=== PATIENT | female | born 1950 | race Caucasian/White ===

== ENCOUNTER 2018-05-27 14:49 | Inpatient (IN) | payer BC, MEDICARE ==
[2018-05-27] VITALS (7 sets, daily range): BP systolic 146–179; BP diastolic 77–87
[~2018-05-27] VITALS: Ht 157.5 cm; Wt 74.0 kg
[~2018-05-27 14:49] MED LIST: ALPR.25T PO; DILT180T7 PO; GABA-488 PO; Oxycodone Hcl/Acetaminophen PO; PRAM0.5T4 PO; TAPE100T PO; TEMA30CA PO; TIZA6CAP7 PO
[2018-05-27] MEDS ORDERED: ACETAMINOPHEN 500 MG TAB (TYLENOL) PO PRN (16:15)
[2018-05-27] MEDS ORDERED: diphenhydrAMINE 25 MG TAB (BENADRYL) PO PRN (16:15)
[2018-05-27] MEDS ORDERED: SCOPOLAMINE 1.5 MG (TRANSDERM-SCOP) PATCH TD PRN (16:15)
[2018-05-27] MEDS ORDERED: TEMAZEPAM 15 MG (RESTORIL) CAP PO PRN (16:15)
[2018-05-27] MEDS ORDERED: ALPRAZolam 0.25 MG (XANAX) TAB PO PRN (16:15)
[2018-05-27] MEDS ORDERED: PATIENT MAY USE OWN MEDS, ALL PO SCH (16:15)
--- OUTSIDE RECORDS SUMMARY | 2018-05-27 17:45 | XMS REPORT | Clinical Summary ---
Author Author Admin, QIE Organization [facility] Address Unknown Phone Unavailable Allergies, Adverse Reactions, Alerts Allergy Name Reaction Description Start Date Severity Status Provider ADHESIVE TAPE rash Moderate Active Maribel Elder REGLAN nausea, vomting Critical Active Maribel Elder OXYCODONE HCL nausea vomting Moderate Active Maribel Elder OPIUM nausea vomting Moderate Active Maribel Elder MORPHINE hallucinaton, nausea, vomting Critical Active Maribel Elder LATEX rash Moderate Active Maribel Elder CODEINE nausea/vomting Moderate Active Maribel Elder Conditions or Problems Problem Name Problem Code Onset Date Status Entry Date Provider Comment Standard Description Annotate 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 Active Deloris Mazariegos MD Other specified disorders of kidney and ureter Medication List Medication Instructions Start Date Stop Date Generic Name NDC Status Provider Patient Instruction CETIRIZINE HCL 10 MG ORAL TABS 1 po qd PRN Allergies CETIRIZINE HCL 07674005010 Active Maribel Elder Active MULTIVITAMIN GUMMIES ADULT CHEW 1 chew by mouth daily MULTIPLE VITAMINS-MINERALS 50676297064 Active Maribel Elder Active VITAMIN D3 56739 UNIT CAPS 1 tab by mouth daily CHOLECALCIFEROL 34929190496 Active Maribel Elder Active [facility] SENNA 8.6 MG ORAL TABS 1 tab by mouth twice daily SENNOSIDES 88325039863 Active Maribel Elder Active CLOTRIMAZOLE-BETAMETHASONE 1-0.05 % EXT CREA apply to affected area twice daily CLOTRIMAZOLE-BETAMETHASONE 56685111095 Active Maribel Elder Active PRAMIPEXOLE DIHYDROCHLORIDE 1 MG ORAL TABS 1 tab by mouth daily PRAMIPEXOLE DIHYDROCHLORIDE 12286750566 Active Maribel Elder Active GABAPENTIN 300 MG CAPS 1 po q hs for nerve pain GABAPENTIN 62460476882 Active Maribel Elder Active DILTIAZEM CD 180 MG ORAL [id number] 1 cap by mouth daily DILTIAZEM HCL COATED BEADS 75333324587 Active Maribel Elder Active ALPRAZOLAM 0.25 MG TAB 1 tablet by mouth twice a day as needed for stress ALPRAZOLAM 35202024152 Active Maribel Elder Active TRAMADOL HCL 50 MG TABS 2 tabs by mouth every 6 hours prn TRAMADOL HCL 67292075584 Active Maribel Elder Active TIZANIDINE HCL 6 MG ORAL CAPS 2 caps by mouth daily TIZANIDINE HCL 78355593533 Active Maribel Elder Active RESTORIL 30 MG CAP 1 cap by mouth at bedtime TEMAZEPAM 11370434157 Active Maribel Elder Active NUCYNTA ER 100 MG ORAL [id number] 1 tab by mouth three times a day prn pain TAPENTADOL HCL 63203696420 Active Maribel Elder Active CELEBREX 200 MG ORAL CAPS 1 cap by mouth CELECOXIB 89058031503 Active Maribel Elder Active Advance Directives Directive Description Start Date PERMISSION TO SHARE Encounters Code Encounter Date Provider Facility [id number] Level 3 New Patient 16:03:13 ILEANA Mazariegos MD [facility]
--- OUTSIDE RECORDS SUMMARY | 2018-05-27 17:45 | XMS REPORT | Encounter Summary ---
Author Author [facility] Organization [facility] Address Unknown Phone Unavailable Care Team Providers Care Qa Consultant Name Role Phone Manoj Yeager MD PCP Reason for Visit * Reason Comments Other Encounter Details Date Type Department Care Team Description 02/25/2018 Telephone Center for Jacob Baker MD Other Transplantation-Hepatobil [address] iary Pancreas [place] [address] [facility] 1st [place] [address] [address] [facility] [phone] [place] [address] [phone] Social History Tobacco Use Types Packs/Day Years Used Date Never Smoker Alcohol Use Drinks/Week oz/Week Comments No 0 Standard 0.0 drinks or equivalent Sex Assigned at Date Recorded Not on file as of this encounter Functional Status Functional Status Response Date of Assessment Does the patient have a hearing impairment: No 09/05/2016 Does the patient have a visual impairment: Yes 09/05/2016 Does the patient have impaired ambulation: No 09/05/2016 Does the patient have an activity of daily living No 09/05/2016 (ADL) impairment: Does the patient have an instrumental activity of No 09/05/2016 daily living (IADL) impairment: Cognitive Status Response Date of Assessment Does the patient have a cognitive impairment: No 09/05/2016 as of this encounter Miscellaneous Notes * Telephone Encounter - Shannan Mcfadden - 02/26/2018 9:34 AM CDT Orders refaxed [phone] * Telephone Encounter - Kathy Kwon - 02/26/2018 8:54 AM CDT [facility] called and requested that orders for pt's MRI be re-faxed. * Telephone Encounter - Shannan Mcfadden - 02/25/2018 1:41 PM CDT Per cardiovascular surgical tech at [facility] (system has not been updated since 2007) not comfortable completing this image for detailed report. Explained to patient v/u will call to reschedule the 02/27 at [facility]. Conflict on her schedule. * Telephone Encounter - Shannan Mcfadden - 02/25/2018 10:31 AM CDT Per [place] rescheduled MRI at [facility] [phone]/fax: on 02/27 check in 3:30 pm (due to lab request) at Hospital entrance east side information desk on 1st floor. If date/time will not work can call to change. Spoke with patient to confirm this new appoinent (different location) states has MRI/labs scheduled tomorrow at [facility]. Will f/u with [place] to see why location change? in this encounter Plan of Treatment Not on fileas of this encounter Visit Diagnoses Not on filein this encounter
--- OUTSIDE RECORDS SUMMARY | 2018-05-27 17:45 | XMS REPORT | Clinical Summary ---
Author Author [facility] Organization [facility] Address Unknown Phone Unavailable Care Team Providers Care Patient Escort Name Role Phone Manoj Yeager MD PCP Source Comments Some departments are not documenting in the electronic medical record. If you do not see the information that you expected, contact Release of Information in the Health Information Management department at [phone] for further assistance in locating additional records.[facility] Allergies Active Allergy Reactions Severity Noted Date Comments Adhesive Tape (Rosins) RASH Medium 09/05/2016 Latex RASH Medium 09/05/2016 Opium VOMITING, HALLUCINATIONS High 09/05/2016 Current Medications Prescription Sig. Disp. Refills Start End Date Status Date diltiazem CD (CARDIZEM Take 180 mg by mouth Active CD) 180 mg capsule daily. pramipexole (MIRAPEX) 1 Take 1 mg by mouth at Active mg tablet bedtime daily. tiZANidine (ZANAFLEX) 6 Take 12 mg by mouth at Active mg capsule bedtime daily. gabapentin (NEURONTIN) Take 300 mg by mouth Active 300 mg capsule twice daily. traMADol (ULTRAM) 50 mg Take 50 mg by mouth every Active tablet 6 hours as needed for Pain. temazepam (RESTORIL) 30 Take 30 mg by mouth at Active mg capsule bedtime as needed. tapentadol(+) (NUCYNTA) Take 100 mg by mouth Active 100 mg tablet every 4 hours as needed ALPRAZolam (XANAX) 0.25 Take 0.25 mg by mouth at Active mg tablet bedtime as needed for Anxiety. cetirizine (ZYRTEC) 10 mg Take 10 mg by mouth every Active tablet morning. senna/docusate Take 1 Tab by mouth Active (SENOKOT-S) 8.6/50 mg daily. tablet cholecalciferol (VITAMIN Take 400 Units by mouth Active D-3) 400 unit tab daily. other medication Take 1 Dose by mouth Active once. Medication Name & Strength: women's 50+ Dose(how many): once a day Frequency(how often):once a day Active Problems Not on file Encounters Date Type Specialty Care Team Description 02/27/2018 Orders Only Transplant Surgery Deyvi Russell RN Healthcare maintenance (Primary Dx) 02/27/2018 Orders Only Transplant Surgery Eloisa Brock MA Pancreas cyst 02/25/2018 Telephone Transplant Surgery Jacob Baker MD Other from Last 3 Months Family History Medical History Relation Name Comments Cancer-Prostate Father Cancer-Colon Mother Relation Name Status Comments Father Mother Social History Tobacco Use Types Packs/Day Years Used Date Never Smoker Alcohol Use Drinks/Week oz/Week Comments No 0 Standard 0.0 drinks or equivalent Sex Assigned at Date Recorded Not on file Last Filed Vital Signs Vital Sign Reading Time Taken Blood Pressure 126/66 09/05/2016 9:11 AM CDT Pulse 63 09/05/2016 9:11 AM CDT Temperature 36.7 C (98.1 F) 09/05/2016 9:11 AM CDT Respiratory Rate - - Oxygen Saturation 98% 09/05/2016 9:11 AM CDT Inhaled Oxygen - - Concentration Weight 60.6 kg (133 lb 11.2 oz) 09/05/2016 9:11 AM CDT Height 160 cm (5' 3") 09/05/2016 9:11 AM CDT Body Mass Index 23.68 09/05/2016 9:11 AM CDT Plan of Treatment Health Maintenance Due Date Last Done Comments HEPATITIS C SCREENING 1949 PHYSICAL (COMPREHENSIVE) 1956 EXAM DTAP/TDAP VACCINES (1 - 1967 Tdap) BREAST CANCER SCREENING 1989 COLORECTAL CANCER 1999 SCREENING SHINGLES RECOMBINANT 1999 VACCINE (1 of 2) OSTEOPOROSIS 2014 SCREENING/MONITORING PNEUMONIA (PCV13/PPSV23) 2014 VACCINES (1 of 2 - PCV13) INFLUENZA VACCINE 01/21/2018 Results Not on filefrom Last 3 Months
--- OUTSIDE RECORDS SUMMARY | 2018-05-27 17:45 | XMS REPORT | Clinical Summary ---
Author Author Admin, QIE Organization [facility] Address Unknown Phone Unavailable Allergies, Adverse Reactions, [...] 1 po qd PRN Allergies CETIRIZINE HCL 71650882525 Active Maribel Elder Active MULTIVITAMIN GUMMIES ADULT CHEW 1 chew by mouth daily MULTIPLE VITAMINS-MINERALS 17991632657 Active Maribel Elder Active VITAMIN D3 06428 UNIT CAPS 1 tab by mouth daily CHOLECALCIFEROL 19970570764 Active Maribel Elder Active [facility] SENNA 8.6 MG ORAL TABS 1 tab by mouth twice daily SENNOSIDES 72386268369 Active Maribel Elder Active CLOTRIMAZOLE-BETAMETHASONE 1-0.05 % EXT CREA apply to affected area twice daily CLOTRIMAZOLE-BETAMETHASONE 18457794701 Active Maribel Elder Active PRAMIPEXOLE DIHYDROCHLORIDE 1 MG ORAL TABS 1 tab by mouth daily PRAMIPEXOLE DIHYDROCHLORIDE 55799819322 Active Maribel Elder Active GABAPENTIN 300 MG CAPS 1 po q hs for nerve pain GABAPENTIN 39878789138 Active Maribel Elder Active DILTIAZEM CD 180 MG ORAL [id number] 1 cap by mouth daily DILTIAZEM HCL COATED BEADS 63674158583 Active Maribel Elder Active ALPRAZOLAM 0.25 MG TAB 1 tablet by mouth twice a day as needed for stress ALPRAZOLAM 66400694803 Active Maribel Elder Active TRAMADOL HCL 50 MG TABS 2 tabs by mouth every 6 hours prn TRAMADOL HCL 25583726815 Active Maribel Elder Active TIZANIDINE HCL 6 MG ORAL CAPS 2 caps by mouth daily TIZANIDINE HCL 91508510454 Active Maribel Elder Active RESTORIL 30 MG CAP 1 cap by mouth at bedtime TEMAZEPAM 46509574164 Active Maribel Elder Active NUCYNTA ER 100 MG ORAL [id number] 1 tab by mouth three times a day prn pain TAPENTADOL HCL 67987970370 Active Maribel Elder Active CELEBREX 200 MG ORAL CAPS 1 cap by mouth CELECOXIB 30129540875 Active Maribel Elder Active Advance Directives Directive Description Start Date PERMISSION TO SHARE Vital Signs Date Name Value Unit Range Description blood pressure, diastolic - 8462-4 60 mm[Hg] BP harvey blood pressure, systolic - 8480-6 100 mm[Hg] BP sys height E&M - 8302-2 63 [in_us] Bdy height pulse rate E&M - 8867-4 70 /min Heart rate temperature E&M 97.8 [degF] Body temperature weight E&M - 3141-9 138 [lb_av] Weight Measured Encounters Code Encounter Date Provider Facility CPT-52754 Level 3 New Patient 16:03:13 CDT Deloris Mazariegos MD [facility]
--- OUTSIDE RECORDS SUMMARY | 2018-05-27 17:45 | XMS REPORT | Clinical Summary ---
Demographics Home Phone Preferred Language Unknown Marital Status Unknown Caodaism Affiliation Unknown Race Unknown Ethnic Group Unknown Author Author Admin, QIE Organization [facility] Address Unknown Phone Unavailable Allergies, Adverse [...] Entry Date Provider Comment Standard Description Annotate Problems Unknown Active Medication List Medication Instructions Start Date Stop Date Generic Name NDC Status Provider Patient Instruction CETIRIZINE HCL 10 MG ORAL TABS 1 po qd PRN Allergies CETIRIZINE HCL 66489543888 Active Maribel Elder Active MULTIVITAMIN GUMMIES ADULT CHEW 1 chew by mouth daily MULTIPLE VITAMINS-MINERALS 27264994085 Active Maribel Elder Active VITAMIN D3 47195 UNIT CAPS 1 tab by mouth daily CHOLECALCIFEROL 22544042130 Active Maribel Elder Active [facility] SENNA 8.6 MG ORAL TABS 1 tab by mouth twice daily SENNOSIDES 52149822367 Active Maribel Elder Active CLOTRIMAZOLE-BETAMETHASONE 1-0.05 % EXT CREA apply to affected area twice daily CLOTRIMAZOLE-BETAMETHASONE 48043496671 Active Maribel Elder Active PRAMIPEXOLE DIHYDROCHLORIDE 1 MG ORAL TABS 1 tab by mouth daily PRAMIPEXOLE DIHYDROCHLORIDE 50173988082 Active Maribel Elder Active GABAPENTIN 300 MG CAPS 1 po q hs for nerve pain GABAPENTIN 12180457292 Active Maribel Elder Active DILTIAZEM CD 180 MG ORAL [id number] 1 cap by mouth daily DILTIAZEM HCL COATED BEADS 93910476075 Active Maribel Elder Active ALPRAZOLAM 0.25 MG TAB 1 tablet by mouth twice a day as needed for stress ALPRAZOLAM 24063516083 Active Maribel Elder Active TRAMADOL HCL 50 MG TABS 2 tabs by mouth every 6 hours prn TRAMADOL HCL 31282590273 Active Maribel Elder Active TIZANIDINE HCL 6 MG ORAL CAPS 2 caps by mouth daily TIZANIDINE HCL 52887436559 Active Maribel Elder Active RESTORIL 30 MG CAP 1 cap by mouth at bedtime TEMAZEPAM 72143380798 Active Maribel Elder Active NUCYNTA ER 100 MG ORAL [id number] 1 tab by mouth three times a day prn pain TAPENTADOL HCL 70666879913 Active Maribel Elder Active CELEBREX 200 MG ORAL CAPS 1 cap by mouth CELECOXIB 06259961396 Active Maribel Elder Active
--- OUTSIDE RECORDS SUMMARY | 2018-05-27 17:45 | XMS REPORT | Encounter Summary ---
Author Author [facility] Organization [facility] Address Unknown Phone Unavailable Care Team Providers Care Juvenile Court Liaison Name Role Phone Manoj Yeager MD PCP Encounter Details Date Type Department Care Team Description 02/27/2018 Orders Only Center Deyvi Martinez RN Healthcare maintenance Transplantation-Liver (Primary Dx) Transplant [facility] 1st FLOOR [address] [place] [address] Social History Tobacco Use Types Packs/Day Years [...] impairment: No 09/05/2016 as of this encounter Plan of Treatment Name Priority Associated Diagnoses Order Schedule BASIC METABOLIC PANEL Routine Healthcare maintenance Expected: 2017 (Approximate), Expires: 02/27/2019 as of this encounter Visit Diagnoses Diagnosis Healthcare maintenance - Primary Routine general medical examination at a health care facility
--- OUTSIDE RECORDS SUMMARY | 2018-05-27 17:45 | XMS REPORT | Continuity of Care Document ---
Author Author [facility] Organization [facility] Address Unknown Phone Unavailable Allergies There is no data. Medications There is no data. Problems Date Dx Coded Attending Type Code Diagnosis Diagnosed By 05/03/2014 LYDIA WOOD DO Ot 311 05/03/2014 LYDIA WOOD DO Ot 723.0 05/06/2014 LYDIA WOOD DO Ot 723.0 05/06/2014 LYDIA WOOD DO Ot V72.63 05/06/2014 LYDIA WOOD DO Ot V74.8 Procedures There is no data. Results There is no data. Encounters ACCT No. Visit Date/Time Discharge Status Pt. Type Provider Facility Loc./Unit Complaint [id number] 10/05/2016 11:07:01 ACT Unknown [id number] 05/02/2014 06:00:00 05/03/2014 10:42:00 DIS Inpatient LYDIA WOOD DO [facility] SURGICAL [id number] 04/18/2014 09:12:00 04/18/2014 23:59:59 CLS Outpatient LYDIA WOOD DO [facility] PREOP
--- OUTSIDE RECORDS SUMMARY | 2018-05-27 17:45 | XMS REPORT | Encounter Summary ---
Author Author [facility] Organization [facility] Address Unknown Phone Unavailable Care Team Providers Care Civil Engineer Land Development Name Role Phone Manoj Yeager MD PCP Encounter Details Date Type Department Care Team Description 02/27/2018 Orders Only Center for Eloisa Brock MA Pancreas cyst Transplantation-Liver Transplant [facility] 1st FLOOR [address] [place], [place] [id number] Social History Tobacco Use Types Packs/Day Years [...] as of this encounter Plan of Treatment Not on fileas of this encounter Visit Diagnoses Diagnosis Pancreas cyst Cyst and pseudocyst of pancreas
[2018-05-27] MEDS ORDERED: fentaNYL INJECTION 100 MCG/2 ML AMP ONE (18:03)
[2018-05-27] MEDS: fentaNYL INJECTION 100 MCG/2 ML AMP IVP PRN ×4 (18:07→23:51)
--- NOTE | 2018-05-27 18:14 | Progress Note-Hospitalist ---
Progress Note I was consulted on this patient as a hospitalist at [facility] in [place] and patient was seen pre-op on 05/25/18 before and uncomplicated lumbar spine surgery by Dr Biswas. She has had post op pain not easily managed given the fact that narcotics caused hypotension. Patient was transferred to higher level of care and in need of Cardiology expertise, specifically cardiac electrophysiology, due to labile BP readings post op lumbar spine surgery with severe hypotension and severe bradycardia that was intermingled with bigeminy and h/o AF w/RVR 9 yrs ago with complete cardiac w/u at that time including ECHO and stress test but had not had any cardiac testing since that time. SBP has been running 220's but then rapidly decreased to SBP 60's requiring IVF boluses and telemetry monitoring with documented HR of 40 with symptoms of naseua and vomiting causing slowed recovery and inability to improve status without cardiac testing and management at this facility. APOLINAR KIRK DO May 27, 2018 18:14
[2018-05-27] MEDS ORDERED: PANTOPRAZOLE 40 MG (PROTONIX) TAB PO NR (18:15)
[2018-05-27] MEDS ORDERED: MAGNESIUM 1 GM/100 ML IVPB 100 ML IV ONE (18:15)
--- NOTE | 2018-05-27 18:39 | Diagnostic Imaging Report ---
INDICATION: Hypoxia, recent back surgery. Frontal chest obtained at 6:20 p.m. FINDINGS: Heart and mediastinal silhouette are normal in appearance. There is some minimal infiltrate or atelectasis in the right medial base. Lungs are otherwise clear. There is no pneumothorax or pleural fluid. There are postop changes in the thoracolumbar spine. IMPRESSION: Minimal infiltrate versus atelectasis in the right medial base. Otherwise, negative chest. Dictated by: Dictated on workstation # [id number]
[2018-05-27 19:18] LABS: BASOPHILS % (AUTO) 0 % (0-10); EOSINOPHILS % (AUTO) 0 % (0-10); HEMATOCRIT 34 % (35-52); LYMPHOCYTES # (AUTO) 0.6 X 10^3 (1.0-4.0); LYMPHOCYTES % (AUTO) 8 % (12-44); MEAN CORPUSCULAR HEMOGLOBIN 29 PG (25-34); MEAN CORPUSCULAR HGB CONC 32 G/DL (32-36); MEAN CORPUSCULAR VOLUME 89 FL (80-99); MEAN PLATELET VOLUME 10.2 FL (7.4-10.4); MONOCYTES # (AUTO) 0.2 X 10^3 (0.0-1.0); MONOCYTES % (AUTO) 3 % (0-12); NEUTROPHILS # (AUTO) 6.9 X 10^3 (1.8-7.8); NEUTROPHILS % (AUTO) 90 % (42-75); PLATELET COUNT 208 10^3/uL (130-400); RED BLOOD COUNT 3.82 10^6/uL (4.35-5.85); RED CELL DISTRIBUTION WIDTH 14.5 % (10.0-14.5); WHITE BLOOD COUNT 7.7 10^3/uL (4.3-11.0)
[2018-05-27 19:34] LABS: BAND NEUTROPHILS 1 %; BASOPHILS % (MANUAL) 0 %; EOSINOPHILS % (MANUAL) 0 %; LYMPHOCYTES % (MANUAL) 15 %; MONOCYTES % (MANUAL) 1 %; NEUTROPHILS % (MANUAL) 83 %; RBC MORPH NORMAL
[2018-05-27 19:42] LABS: ALANINE AMINOTRANSFERASE 26 U/L (0-55); ALKALINE PHOSPHATASE 101 U/L (40-136); BILIRUBIN,TOTAL 0.4 MG/DL (0.1-1.0); BUN/CREATININE RATIO 12; CALCIUM 8.9 MG/DL (8.5-10.1); CARBON DIOXIDE 20 MMOL/L (21-32); CHLORIDE 106 MMOL/L (98-107); CREATININE SERUM 0.69 MG/DL (0.60-1.30); GFR ESTIMATED > 60; GLUCOSE 136 MG/DL (70-105); POTASSIUM 3.7 MMOL/L (3.6-5.0); SODIUM 138 MMOL/L (135-145); TOTAL PROTEIN 6.7 GM/DL (6.4-8.2)
[2018-05-27 19:48] LABS: MYOGLOBIN SERUM 42.4 NG/ML (10.0-92.0)
[2018-05-27] MEDS: ONDANSETRON 4 MG/2 ML (SDV) Z0FRAN IVP PRN (20:23)
[2018-05-27] MEDS ORDERED: RT-ALBUTEROL SULF 2.5 MG/3 ML PRE-MIX VIAL INH PRN (21:00)
[2018-05-27] MEDS: RT-ALBUTEROL SULF 2.5 MG/3 ML PRE-MIX VIAL INH SCH (21:45)
[2018-05-27 22:24] LABS: BILIRUBIN,URINE NEGATIVE (NEGATIVE); CLARITY,URINE CLEAR; COLOR,URINE YELLOW; GLUCOSE, URINE (UA) 1+ (NEGATIVE); KETONES,URINE NEGATIVE (NEGATIVE); LEUKOCYTE ESTERASE ,URINE NEGATIVE (NEGATIVE); NITRITE,URINE NEGATIVE (NEGATIVE); PH,URINE 7 (5-9); PROTEIN,URINE NEGATIVE (NEGATIVE); UROBILINOGEN,URINE NORMAL (NORMAL)
[2018-05-27 22:38] LABS: SQUAMOUS EPITHELIAL CELL,UR RARE /HPF
[2018-05-28] VITALS (14 sets, daily range): BP systolic 78–180; BP diastolic 74–130
[2018-05-28] MEDS: ONDANSETRON 4 MG/2 ML (SDV) Z0FRAN IVP PRN ×4 (00:38→15:29)
[2018-05-28] MEDS: fentaNYL INJECTION 100 MCG/2 ML AMP IVP PRN ×5 (01:46→18:48)
[2018-05-28 03:53] LABS: BASOPHILS % (AUTO) 0 % (0-10); EOSINOPHILS % (AUTO) 0 % (0-10); HEMATOCRIT 33 % (35-52); HEMOGLOBIN 10.8 G/DL (11.5-16.0); LYMPHOCYTES # (AUTO) 0.9 X 10^3 (1.0-4.0); LYMPHOCYTES % (AUTO) 11 % (12-44); MEAN CORPUSCULAR HEMOGLOBIN 29 PG (25-34); MEAN CORPUSCULAR HGB CONC 33 G/DL (32-36); MEAN CORPUSCULAR VOLUME 89 FL (80-99); MEAN PLATELET VOLUME 10.2 FL (7.4-10.4); MONOCYTES # (AUTO) 0.6 X 10^3 (0.0-1.0); MONOCYTES % (AUTO) 7 % (0-12); NEUTROPHILS # (AUTO) 6.6 X 10^3 (1.8-7.8); NEUTROPHILS % (AUTO) 82 % (42-75); PLATELET COUNT 231 10^3/uL (130-400); RED BLOOD COUNT 3.74 10^6/uL (4.35-5.85); RED CELL DISTRIBUTION WIDTH 14.6 % (10.0-14.5)
[2018-05-28] MEDS: CALCIUM CARBONATE 500 MG (TUMS) TAB.CHEW PO PRN ×2 (04:00→21:43)
[2018-05-28] MEDS: POTASSIUM CHLORIDE INJ 10 MEQ in NS IV 1000 ML 1,000 ML IV SCH ×4 (04:00→23:19)
[2018-05-28] MEDS ORDERED: KETOROLAC 30 MG/ML VIAL ONE (04:03)
[2018-05-28] MEDS ORDERED: KETOROLAC 30 MG/ML VIAL IVP ONE (04:15)
[2018-05-28 04:17] LABS: MAGNESIUM 2.6 MG/DL (1.8-2.4); PHOSPHORUS 2.4 MG/DL (2.3-4.7)
[2018-05-28 04:26] LABS: ALANINE AMINOTRANSFERASE 22 U/L (0-55); ALBUMIN 4.1 GM/DL (3.2-4.5); ALKALINE PHOSPHATASE 95 U/L (40-136); BILIRUBIN,TOTAL 0.4 MG/DL (0.1-1.0); BUN/CREATININE RATIO 10; CARBON DIOXIDE 21 MMOL/L (21-32); CHLORIDE 104 MMOL/L (98-107); CREATININE SERUM 0.71 MG/DL (0.60-1.30); GFR ESTIMATED > 60; GLUCOSE 115 MG/DL (70-105); POTASSIUM 3.7 MMOL/L (3.6-5.0); SODIUM 138 MMOL/L (135-145); TOTAL PROTEIN 6.8 GM/DL (6.4-8.2)
--- NOTE | 2018-05-28 07:07 | Pulmonary Consultation ---
History of Present Illness History of Present Illness Date of Consultation 05/28/18 07:02 Time Seen by Provider: 07:02 Date of Admission History of Present Illness 67yo with hx of afib direct admit from [facility] secondary to hypotension and severe bradycardia with HR 40's. Pt is s/p uncomplicated lumbar spine surgery. Allergies and Home Medications Allergies Uncoded Allergies: PAIN MEDICATION (Adverse Reaction, Unknown, SIDE EFFECTS FROM PAIN MEDICATIONS, 04/18/14) Home Medications Alprazolam 0.25 Mg Tablet, 0.25 MG PO TID PRN for ANXIETY, (Reported) Cetirizine HCl 10 Mg Tablet, 10 MG PO DAILY, (Reported) Cyanocobalamin (Vitamin B-12) 50 Mcg Lozenge, 50 MCG PO DAILY, (Reported) Diltiazem HCl 180 Mg Tab.er.24h, 180 MG PO DAILY, (Reported) Docusate Sodium 100 Mg Capsule, 100 MG PO HS, (Reported) Gabapentin 300 Mg Capsule, 600 MG PO HS, (Reported) TAKES 2 (300MG) CAPSULES Mv-Mn/Folic Acid/Calcium/Vit K 1 Each Tablet, 1 TAB PO DAILY, (Reported) Naloxone HCl 4 Mg Grethel, NS UD PRN for OPIOID SIDE EFFECTS, (Reported) Pramipexole Di-HCl 1 Mg Tablet, 1 MG PO 1900, (Reported) Tapentadol HCl 100 Mg Tablet, 100 MG PO TID, (Reported) Temazepam 30 Mg Capsule, 30 MG PO HS, (Reported) Tizanidine HCl 6 Mg Capsule, 6 MG PO BID, (Reported) Past Kkvzkem-Vvaltx-Bqnxjn Hx Patient Social History Alcohol Use: Denies Use Recreational Drug Use: No Smoking Status: Never a Smoker Recent Foreign Travel: No Contact w/Someone Who Travel: No Recent Infectious Disease Expo: No Immunizations Up To Date Date of Pneumonia Vaccine: Feb 21, 2018 Date of Influenza Vaccine: Feb 21, 2018 Past Medical History Arthritis Anxiety Family Medical History Cardiovascular disease 19 FATHER Colon cancer 19 MOTHER Diabetes mellitus G8 BROTHER FH: prostate cancer 19 FATHER Hypertension 19 MOTHER Sepsis Event Evaluation Height, Weight, BMI Height: 5'2.00" Weight: 160lbs. 0.0oz. 72.686220mr; 29.3 BMI Method: Exam Exam Vital Signs Date Time Temp Pulse Resp B/P (MAP) Pulse Ox O2 Delivery O2 Flow Rate FiO2 05/28/18 06:00 56 15 161/87 (111) 97 Room Air 05/28/18 05:00 50 15 168/85 (112) 95 Room Air 05/28/18 04:00 97 Room Air 05/28/18 04:00 59 19 148/74 (98) 97 Room Air 05/28/18 03:00 50 16 144/78 (100) 95 Room Air 05/28/18 02:00 49 19 158/83 (108) 97 Room Air 05/28/18 01:00 84 05/28/18 01:00 81 13 149/130 (136) 98 Room Air 05/28/18 00:00 97 Room Air 05/28/18 00:00 70 22 139/81 (100) 93 Room Air 05/27/18 23:00 68 27 153/77 (102) 96 Room Air 05/27/18 22:00 68 19 156/85 (108) 96 Room Air 05/27/18 21:45 99 Room Air 05/27/18 21:00 57 22 146/80 (102) 97 Room Air 05/27/18 20:00 98 Room Air 05/27/18 20:00 172 10 172/87 (115) 97 Room Air 05/27/18 19:44 99.0 56 16 172/82 (112) 97 Room Air 05/27/18 19:00 60 05/27/18 18:33 94 Room Air 05/27/18 18:30 66 97 21 05/27/18 17:45 56 8 179/83 (115) 94 Room Air 05/27/18 17:41 74 I & O 05/28/18 07:00 Intake Total 125 ml Output Total 2270 ml Balance -2145 ml Height & Weight Height: 5'2.00" Weight: 160lbs. 0.0oz. 72.972939ge; 29.3 BMI Method: Results Lab Laboratory Tests 05/27/18 19:11 05/28/18 03:10 Assessment/Plan Assessment/Plan s/p lumbar surgery -Pain control Hypotension - improved -Pt is now hypertensive -IVF Atelectasis -IS -Increase activity Bradycardia - improved -Cardiology consulted Nausea -scopolamine patch -Add Zofran -IVF Anemia -Monitor Hypermag -Monitor Transfer to [facility] with tele if okay with cardiology and Dr. Devi. MARCELLO MANCUSO DO May 28, 2018 07:07
--- NOTE | 2018-05-28 07:33 | Diagnostic Imaging Report ---
INDICATION: Hypoxia. TECHNIQUE: Single view chest 12:10 a.m. CORRELATION STUDY: 05/27/2018. FINDINGS: Heart size borderline but relatively stable. Vasculature within normal limits. Left lung base, however, somewhat obscured by the cardiac enlargement. Infiltrate and/or atelectasis left lung base not excluded. Right lung appears clear on followup. Surgical changes of thoracolumbar spinal fixation is partially visualized. Cervical spinal fusion hardware also present. IMPRESSION: 1. Left lung base somewhat obscured with possibility of atelectasis and/or infiltrate at its base not excluded. Otherwise, no acute cardiopulmonary abnormality. Dictated by: Dictated on workstation # [id number]
[2018-05-28] MEDS: PANTOPRAZOLE 40 MG (PROTONIX) TAB PO SCH (08:06)
[2018-05-28] MEDS: RT-ALBUTEROL SULF 2.5 MG/3 ML PRE-MIX VIAL INH SCH ×3 (09:13→21:54)
[2018-05-28] MEDS ORDERED: TEMA30CA PO (09:39)
[2018-05-28] MEDS ORDERED: CETI10TA20 PO (09:39)
[2018-05-28] MEDS ORDERED: CYAN50LO PO (09:39)
[2018-05-28] MEDS ORDERED: PRAM1TAB5 PO (09:39)
[2018-05-28] MEDS ORDERED: DOCU-143 PO (09:39)
[2018-05-28] MEDS ORDERED: GABA-488 PO (09:39)
[2018-05-28] MEDS ORDERED: ALPR0.254 PO (09:39)
[2018-05-28] MEDS ORDERED: TIZA6CAP9 PO (09:39)
[2018-05-28] MEDS ORDERED: DILT180T9 PO (09:39)
[2018-05-28] MEDS ORDERED: TAPE100T PO (09:39)
[2018-05-28] MEDS ORDERED: MV-M1TAB57 PO (09:39)
[2018-05-28] MEDS ORDERED: NALO4SPR NS (09:42)
[2018-05-28] MEDS: meTOprolol TARTRATE 25 MG (LOPRESSOR) TABLET PO SCH ×2 (11:42→21:03)
--- NOTE | 2018-05-28 11:45 | History & Physical-Hospitalist ---
SHERI KIRK DO 05/28/18 1145: History of Present Illness HPI/Chief Complaint CC: Arrhythmia HPI: This is a 67-year-old white female clinic patient of Dr. Yeager in [place] who had an uncomplicated lumbar spine surgery by Dr. Biswas [place] surgical [facility] in [facility] on 05/25/18 but had difficulties with labile blood pressure with severe hypertension of systolic of 220 then moments later systolic of 60 without any type of intervention intermingled with severe bradycardia that was symptomatic of the 40s requiring telemetry and close monitoring. She was given IV fluid resuscitation and she remained stable but due to the fact that she began having bigeminy and extrasystoles on telemetry in a more frequent manner and EKG confirmed that it was felt she needed cardiology workup since one had not been done for nearly 10 years since she had an episode of atrial fibrillation and continues to have episodes frequently. Through the night she remained in normal sinus rhythm she is been maintained on IV fluids but she is continuing to have nausea and just overall very slow recovery. She does have a history of slow recovery after her 7 spine surgeries in the past requiring ER visits and multiple other care management phases until she is able to maintain oral intake and pain is controlled at home. I have consulted IRF. Source: patient, family, RN/MD Exam Limitations: no limitations Date Seen 05/28/18 Time Seen by a Provider: 11:00 Attending Physician Sheri Kirk DO PCP No,Local Physician Referring Physician Date of Admission May 27, 2018 at 17:40 Home Medications & Allergies Home Medications Reviewed patient Home Medication Reconciliation performed by pharmacy medication reconciliations design technician and/or nursing. Patients Allergies have been reviewed. Allergies Allergies Uncoded Allergies PAIN MEDICATION ( Adverse Reaction, Unknown, SIDE EFFECTS FROM PAIN MEDICATIONS, 04/18/14) Past Kxtgexg-Ognnzh-Prfflg Hx Past Med/Social Hx: Reviewed Nursing Past Med/Soc Hx, Reviewed and Corrections made Patient Social History Marrital Status: Employed/Student: retired ([employer]) Alcohol Use: Denies Use Recreational Drug Use: No Smoking Status: Never a Smoker Physical Abuse Screen: No Sexual Abuse: No Recent Foreign Travel: No Contact w/other who traveled: No Recent Infectious Disease Expo: No Immunizations Up To Date Date of Pneumonia Vaccine: Feb 21, 2018 Date of Influenza Vaccine: Feb 21, 2018 Past Medical History Surgeries: Orthopedic (Spine, knee) Cardiac: Atrial Fibrillation, Hypertension, Palpitations Neurological: Neuropathy Musculoskeletal: Arthritis Psychosocial: Anxiety Family History Cardiovascular disease 19 FATHER Colon cancer 19 MOTHER Diabetes mellitus G8 BROTHER FH: prostate cancer 19 FATHER Hypertension 19 MOTHER Hypertension Review of Systems Constitutional: see HPI, diaphoresis, dizziness, malaise, weakness EENTM: no symptoms reported Respiratory: no symptoms reported Cardiovascular: palpitations Gastrointestinal: heartburn, loss of appetite, nausea, vomiting Genitourinary: no symptoms reported Musculoskeletal: no symptoms reported Skin: no symptoms reported Psychiatric/Neurological: No Symptoms Reported All Other Systems Reviewed Negative Unless Noted: Yes Physical Exam Physical Exam Vital Signs Vital Signs - First Documented 05/27/18 05/27/18 05/27/18 05/27/18 17:41 17:45 18:30 19:44 Temp 99.0 Pulse 74 Resp 8 B/P (MAP) 179/83 (115) Pulse Ox 94 O2 Delivery Room Air FiO2 21 Capillary Refill : Height, Weight, BMI Height: 5'2.00" Weight: 160lbs. 0.0oz. 72.081785bn; 29.3 BMI Method: General Appearance: WD/WN, Anxious, Moderate Distress, Thin Eyes: Bilateral Eye Normal Inspection, Bilateral Eye PERRL HEENT: PERRL/EOMI, Normal ENT Inspection, Pharynx Normal Neck: Full Range of Motion, Normal Inspection, Non Tender, Supple, Carotid Bruit Respiratory: Chest Non Tender, Lungs Clear, Normal Breath Sounds, No Accessory Muscle Use, No Respiratory Distress Cardiovascular: Regular Rate, Rhythm, No Edema, No Gallop, No JVD, No Murmur, Normal Peripheral Pulses Gastrointestinal: Normal Bowel Sounds, No Organomegaly, No Pulsatile Mass, Non Tender, Soft Back: Normal Inspection, No CVA Tenderness, No Vertebral Tenderness Extremity: Normal Capillary Refill, Normal Inspection, Normal Range of Motion, Non Tender, No Calf Tenderness, No Pedal Edema Neurologic/Psychiatric: Alert, Oriented x3, No Motor/Sensory Deficits, Normal Mood/Affect Skin: Normal Color, Warm/Dry Lymphatic: No Adenopathy Results Results/Procedures Labs Laboratory Tests 05/27/18 19:11 05/28/18 03:10 05/29/18 05:10 Patient resulted labs reviewed. Assessment/Plan Admission Diagnosis Assessment: Arrhythmia with severe bradycardia, bigeminy and h/o AF causing slow recovery from lumbar spine surgery Debility acute on chronic Depression Anxiety N/V Weight loss Anemia Plan: Home meds Anxiety treatment Cardiology is appreciated since it appears patient is at high risk for SSS or heart block Admission Status: Inpatient Order (span 2 midnights) Reason for Inpatient Admission: Arrhythmia will require telemetry and cardiology testing and close monitoring due to high risk for heart block due to bradycardia Diagnosis/Problems Diagnosis/Problems (1) Arrhythmia Status: Acute Qualifiers: Arrhythmia type: unspecified cardiac arrhythmia Qualified Codes: I49.9 - Cardiac arrhythmia, unspecified (2) Paroxysmal atrial fibrillation Status: Chronic (3) Nausea & vomiting Status: Acute Qualifiers: Vomiting Intractability: unspecified (4) Debility Status: Acute (5) Anxiety Status: Chronic Clinical Quality Measures DVT/VTE Risk/Contraindication: Risk Factor Score Per Nursin RFS Level Per Nursing on Admit: 4+=Very High RICHARD HAYNES MED STUDENT 05/28/18 1251: History of Present Illness HPI/Chief Complaint CC: Labile BP, A-Fib HPI: This is a 67 YO WF s/p L-spine surgery with a PMHx of multiple spine surgeries (7) and knee replacements (3) secondary to advanced osteoarthritis who was directly admitted to the ICU from [facility] in [place] due to labile BP and A- Fib. Pt underwent lumbar spine surgery on 05/25 without any complications, but has been slow to recover due to inadequate pain management and severe swings in SBP ranging from 220s to 60s requiring IVF. Pt was also found to have bigeminy and A-Fib which required a higher level of cardiac care. Past Uxgbhwh-Cfdpyc-Eqbobl Hx Patient Social History Marrital Status: Employed/Student: retired Alcohol Use: Denies Use Recreational Drug Use: No Smoking Status: Never a Smoker Past Medical History Surgeries: Orthopedic (Spine, knee) Musculoskeletal: Arthritis Psychosocial: Anxiety Family History Cardiovascular disease 19 FATHER Colon cancer 19 MOTHER Diabetes mellitus G8 BROTHER FH: prostate cancer 19 FATHER Hypertension 19 MOTHER Review of Systems Constitutional: no symptoms reported Respiratory: no symptoms reported Cardiovascular: no symptoms reported Gastrointestinal: nausea, vomiting Physical Exam Physical Exam General Appearance: Anxious, Moderate Distress Neck: Normal Inspection Respiratory: Lungs Clear, Normal Breath Sounds, No Accessory Muscle Use Cardiovascular: Regular Rate, Rhythm, No Murmur Gastrointestinal: Normal Bowel Sounds Extremity: Normal Capillary Refill Neurologic/Psychiatric: Alert, Oriented x3 Assessment/Plan Assessment and Plan Assessment: 1. s/p uncomplicated lumbar spine surgery POD #3 2. Moderate/severe post-op pain 3. Recent A-Fib, possible bigeminy 4. Nausea 5. Osteoarthritis requiring multiple orthopedic surgeries 6. Anemia 7. Hypermagnesemia 8. Anxiety Plan: 1. Transfer to floor 2. Achieve adequate pain mgmt - continue fentanyl 3. Ondansetron as needed 4. Continue to monitor on tele 5. IS 6. Monitor labs SHERI KIRK DO May 28, 2018 11:45 RICHARD HAYNES MED STUDENT May 28, 2018 12:51
[2018-05-28] MEDS ORDERED: ALPRAZolam 0.25 MG (XANAX) TAB PO PRN (12:00)
--- NOTE | 2018-05-28 12:16 | Consultation-Cardiology ---
HPI-Cardiology Cardiology Consultation: Date of Consultation 05/28/18 Date of Admission Attending Physician Sheri Devi DO Admitting Physician Jennifer,Local Physician Consulting Physician Reagan CARR MD HPI: Time Seen by a Provider: 09:00 Chief Complaint: Irregular heart rhythm This is a 67-year-old lady who had an uncomplicated lumbar spine surgery in [facility]. She had wide variations in her blood pressure. She has history of paroxysmal atrial fibrillation however she is not on anticoagulation. She also had bradycardia. She was also having significant ectopy on telemetry and required further monitoring. When I saw the patient she was only complaining of back pain but denied any chest pain, shortness of breath, syncope, near- syncope, dizziness, palpitations. Review of Systems-Cardiology Review of Systems Constitutional: As described under HPI; No As described under HPI, No no symptoms reported, No chills, No fever, No lightheadedness Eyes: No As described under HPI, No no symptoms reported, No blindness, No blurred vision, No contact lenses, No drainage, No decreased acuity, No foreign body sensation, No pain, No vision change Ears/Nose/Throat: No As described under HPI, No no symptoms reported, No chronic hearing loss, No ear discharge, No ear pain, No nasal drainage, No ulcerations Respiratory: No no symptoms reported; As described under HPI; No As described under HPI, No cough, No orthopnea, No shortness of breath, No SOB with excertion Cardiovascular: No no symptoms reported; As described under HPI; No As described under HPI, No chest pain, No edema, No irregular heart rate, No lightheadedness, No palpitations Gastrointestinal: No no symptoms reported, No As described under HPI, No abdomen distended, No abdominal pain, No blood streaked bowels, No constipation , No diarrhea, No nausea, No vomiting, No stool coloration changes Genitourinary: No As described under HPI, No burning, No dysuria, No discharge , No frequency, No flank pain, No hematuria, No urgency : Yes : No Musculoskeletal: back pain Skin: No rash, No skin related problems, No ulcerations Psychiatric/Neurological: No anxiety, No depression, No seizure, No focal weakness, No syncope Hematologic: No bleeding abnormalities GTR-Scvhqb-Gaxvjg Hx Patient Social History Alcohol Use: Denies Use Recreational Drug Use: No Smoking Status: Never a Smoker Recent Foreign Travel: No Recent Infectious Disease Expo: No Physical Abuse Screen: No Sexual Abuse: No Immunizations Up To Date Date of Pneumonia Vaccine: Feb 21, 2018 Date of Influenza Vaccine: Feb 21, 2018 Past Medical History PMH As described under Assessment. Family Medical History Family History: Cardiovascular disease 19 FATHER Colon cancer 19 MOTHER Diabetes mellitus G8 BROTHER FH: prostate cancer 19 FATHER Hypertension 19 MOTHER Allergies and Home Medications Allergies Uncoded Allergies: PAIN MEDICATION (Adverse Reaction, Unknown, SIDE EFFECTS FROM PAIN MEDICATIONS, 04/18/14) Home Medications Alprazolam 0.25 Mg Tablet, 0.25 MG PO TID PRN for ANXIETY, (Reported) Cetirizine HCl 10 Mg Tablet, 10 MG PO DAILY, (Reported) Cyanocobalamin (Vitamin B-12) 50 Mcg Lozenge, 50 MCG PO DAILY, (Reported) Diltiazem HCl 180 Mg Tab.er.24h, 180 MG PO DAILY, (Reported) Docusate Sodium 100 Mg Capsule, 100 MG PO HS, (Reported) Gabapentin 300 Mg Capsule, 600 MG PO HS, (Reported) TAKES 2 (300MG) CAPSULES Mv-Mn/Folic Acid/Calcium/Vit K 1 Each Tablet, 1 TAB PO DAILY, (Reported) Naloxone HCl 4 Mg [place], NS UD PRN for OPIOID SIDE EFFECTS, (Reported) Pramipexole Di-HCl 1 Mg Tablet, 1 MG PO 1900, (Reported) Tapentadol HCl 100 Mg Tablet, 100 MG PO TID, (Reported) Temazepam 30 Mg Capsule, 30 MG PO HS, (Reported) Tizanidine HCl 6 Mg Capsule, 6 MG PO BID, (Reported) Patient Home Medication List Home Medication List Reviewed: Yes Physical Exam-Cardiology Physical Exam Vital Signs/I&O 05/28/18 05/29/18 05/29/18 05/29/18 21:54 00:09 01:00 02:45 Temp 98.2 97.3 Pulse 60 60 46 Resp 20 20 B/P (MAP) 102/56 (71) 107/58 (74) Pulse Ox 99 96 96 O2 Delivery Room Air Room Air Room Air 05/29/18 05/29/18 05/29/18 05/29/18 04:54 07:00 07:21 08:57 Temp 99.0 Pulse 50 76 78 Resp 20 B/P (MAP) 140/65 (90) Pulse Ox 95 95 O2 Delivery Room Air 05/29/18 00:00 Intake Total 1985 ml Output Total 30 ml Balance 1955 ml Capillary Refill : Constitutional: appears stated age, AAO x 3; No apparent distress; well- developed, well-nourished HEENT: PERRL; No normal ENT inspection, No TMs normal, No pharynx normal, No scleral icterus (R), No scleral icterus (L), No pale conjunctivae (R), No pale conjunctivae (L), No photophobia, No TM abnormal (R), No TM abnormal (L), No pharyngeal erythema, No tonsillar exudate, No other, No discharge, No EOMI; hearing is well preserved; No hard of hearing; oral hygience is good; No ulceration, No xanthelasmas are seen Neck: No carotid bruit; carotid pulses are 2 + bilaterally Respiratory: No accessory muscle use, No respiratory distress, No chest tender , No chest expansion is symmetric; chest is bilaterally symmetric; No lungs clear to percussion; lungs clear to auscultation; No crackles, No rhonchi, No rales, No stridor, No wheezing, No pleural rub, No other Cardiovascular: regular rate-rhythm; No irregularly irregular, No extra beats, No parasternal heave is noted, No JVD, No edema, No bradycardia, No tachycardia , No point of maximal impulse, No cardiac thrills are palpable; S1 and S2; No gallop/S3, No gallop/S4, No diastolic murmur, No systolic murmur, No friction rub, No click, No other Gastrointestinal: No tender, No soft, No round, No distended, No pulsatile mass , No organomegaly, No guarding, No rebound, No tenderness, No hernia, No mass, No audible bowel sounds, No abnormal bowel sounds, No abdominal bruits, No spleenomegaly, No other Rectal: deferred Extremities: No normal range of motion, No non-tender, No normal inspection, No pedal edema, No calf tenderness, No normal capillary refill, No pelvis stable , No calf tenderness, No inflammation, No pedal edema, No slow capillary refill , No swelling, No other, No abrasion, No clubbing, No cyanosis, No ecchymosis, No laceration, No no lower extremity edema bilateral, No significant edema, No tenderness, No wound Neurologic/Psychiatric: no motor/sensory deficits, alert, normal mood/affect, oriented x 3, power is 5/5 both on sides Skin: No normal color, No warm/dry, No cyanosis, No cool, No diaphoresis, No damp, No ecchymosis, No jaundice, No mottled, No pallor, No rash, No tattoos/ piercings, No ulcerations, No rash on exposed areas, No ulcerations on exposed areas, No other Data Review Labs Laboratory Tests 05/29/18 05:10: White Blood Count 6.0, Red Blood Count 3.50L, Hemoglobin 10.2L, Hematocrit 31L, Mean Corpuscular Volume 90, Mean Corpuscular Hemoglobin 29, Mean Corpuscular Hemoglobin Concent 33, Red Cell Distribution Width 14.3, Platelet Count 211, Mean Platelet Volume 10.3, Neutrophils (%) (Auto) 60, Lymphocytes (%) (Auto) 29 , Monocytes (%) (Auto) 11, Eosinophils (%) (Auto) 0, Basophils (%) (Auto) 0, Neutrophils # (Auto) 3.6, Lymphocytes # (Auto) 1.7, Monocytes # (Auto) 0.6, Eosinophils # (Auto) 0.0, Basophils # (Auto) 0.0, Sodium Level 139, Potassium Level 4.2, Chloride Level 109H, Carbon Dioxide Level 20L, Anion Gap 10, Blood Urea Nitrogen 14, Creatinine 0.75, Estimat Glomerular Filtration Rate > 60, BUN/ Creatinine Ratio 19, Glucose Level 87, Calcium Level 8.7, Corrected Calcium 9.1 , Total Bilirubin 0.6, Aspartate Amino Transf (AST/SGOT) 21, Alanine Aminotransferase (ALT/SGPT) 20, Alkaline Phosphatase 81, Total Protein 5.6L, Albumin 3.5 Microbiology 05/27/18 MRSA Screen - Final, Complete MRSA not isolated ECG Impression ECG Initial ECG Rhythm: Normal Sinus, PVC, PAC Initial ECG Impression: Normal A/P-Cardiology Assessment/Admission Diagnosis Recent orthopedic surgery, History of paroxysmal atrial fibrillation, PACs, Sinus bradycardia, Hypertension. Plan Recent orthopedic surgery, deferred to primary team. History of paroxysmal atrial fibrillation, beta blockers. Patient will be a candidate for oral anticoagulation therapy once cleared by primary team and surgery. Her CHADSVASC is 3 for gender, age and HTN. PACs, beta blockers. Sinus bradycardia, likely sinus node dysfunction. Hypertension. Start metoprolol 25 mg twice a day. She might require another antihypertensive agent. However good pain control may help with blood pressure management. Thank you for your consultation. Please call me if you have any questions. Li Carr MD, FACP, FACC, FSCAI, FHRS, CCDS Interventional Cardiology Cardiac Electrophysiology Vascular Medicine and Endovascular Interventions Clinical Quality Measures DVT/VTE Risk/Contraindication: Risk Factor Score Per Nursin RFS Level Per Nursing on Admit: 4+=Very High Reagan CARR MD May 28, 2018 12:16
[2018-05-28] MEDS ORDERED: NUCYNTA 100 MG PO SCH (13:00)
[2018-05-28] MEDS: KETOROLAC 30 MG/ML VIAL IVP PRN (13:24)
[2018-05-28] MEDS: PRAMIPEXOLE 0.5 MG TAB (MIRAPEX) PO SCH (18:48)
[2018-05-28] MEDS ORDERED: NON-FORMULARY MEDICATION 1 EA EA (Pramipexole Di-HCl (Pramipexole Dihydrochloride) 1 MG) PO SCH (19:00)
[2018-05-28] MEDS ORDERED: DOCUSATE SODIUM 100 MG (COLACE) CAP PO SCH (21:00)
[2018-05-28] MEDS ORDERED: NON-FORMULARY MEDICATION 1 EA EA (Temazepam 30 MG) PO SCH (21:00)
[2018-05-28] MEDS: GABAPENTIN 300 MG (NEURONTIN) CAP PO SCH (21:05)
[2018-05-29] VITALS (7 sets, daily range): BP systolic 94–168; BP diastolic 52–79
[2018-05-29] MEDS: KETOROLAC 30 MG/ML VIAL IVP PRN ×4 (00:31→20:20)
[2018-05-29] MEDS: POTASSIUM CHLORIDE INJ 10 MEQ in NS IV 1000 ML 1,000 ML IV SCH ×2 (03:56→07:08)
[2018-05-29] MEDS: CALCIUM CARBONATE 500 MG (TUMS) TAB.CHEW PO PRN (04:55)
[2018-05-29 05:45] LABS: BASOPHILS % (AUTO) 0 % (0-10); EOSINOPHILS % (AUTO) 0 % (0-10); HEMATOCRIT 31 % (35-52); HEMOGLOBIN 10.2 G/DL (11.5-16.0); LYMPHOCYTES # (AUTO) 1.7 X 10^3 (1.0-4.0); LYMPHOCYTES % (AUTO) 29 % (12-44); MEAN CORPUSCULAR HEMOGLOBIN 29 PG (25-34); MEAN CORPUSCULAR HGB CONC 33 G/DL (32-36); MEAN CORPUSCULAR VOLUME 90 FL (80-99); MEAN PLATELET VOLUME 10.3 FL (7.4-10.4); MONOCYTES # (AUTO) 0.6 X 10^3 (0.0-1.0); MONOCYTES % (AUTO) 11 % (0-12); NEUTROPHILS # (AUTO) 3.6 X 10^3 (1.8-7.8); NEUTROPHILS % (AUTO) 60 % (42-75); PLATELET COUNT 211 10^3/uL (130-400); RED CELL DISTRIBUTION WIDTH 14.3 % (10.0-14.5)
[2018-05-29 06:11] LABS: ALANINE AMINOTRANSFERASE 20 U/L (0-55); ALBUMIN 3.5 GM/DL (3.2-4.5); ALKALINE PHOSPHATASE 81 U/L (40-136); BILIRUBIN,TOTAL 0.6 MG/DL (0.1-1.0); BUN/CREATININE RATIO 19; CALCIUM 8.7 MG/DL (8.5-10.1); CARBON DIOXIDE 20 MMOL/L (21-32); CHLORIDE 109 MMOL/L (98-107); CREATININE SERUM 0.75 MG/DL (0.60-1.30); GFR ESTIMATED > 60; GLUCOSE 87 MG/DL (70-105); POTASSIUM 4.2 MMOL/L (3.6-5.0); SODIUM 139 MMOL/L (135-145); TOTAL PROTEIN 5.6 GM/DL (6.4-8.2)
[2018-05-29] MEDS: PANTOPRAZOLE 40 MG (PROTONIX) TAB PO SCH (06:11)
[2018-05-29] MEDS: RT-ALBUTEROL SULF 2.5 MG/3 ML PRE-MIX VIAL INH SCH ×2 (07:21→19:19)
[2018-05-29] MEDS: LORATADINE (CLARITIN) 10 MG TAB PO SCH (08:35)
[2018-05-29] MEDS: DOCUSATE SODIUM 100 MG (COLACE) CAP PO PRN ×2 (08:43→20:19)
[2018-05-29] MEDS: meTOprolol TARTRATE 25 MG (LOPRESSOR) TABLET PO SCH ×2 (08:51→21:57)
[2018-05-29] MEDS ORDERED: NON-FORMULARY MEDICATION 1 EA EA (Cetirizine HCl (Zyrtec) 10 MG) PO SCH (09:00)
--- NOTE | 2018-05-29 10:00 | Cardiology Progress Note ---
Cardiology SOAP Progress Note Subjective: C/o dizziness this am. SBP was 107mmhg. Heart rate 78bpm. Objective: I&O/Vital Signs 05/29/18 05/29/18 05/29/18 05/29/18 00:09 01:00 02:45 04:54 Temp 98.2 97.3 99.0 Pulse 60 60 46 50 Resp 20 20 20 B/P (MAP) 102/56 (71) 107/58 (74) 140/65 (90) Pulse Ox 96 96 95 O2 Delivery Room Air Room Air 05/29/18 05/29/18 05/29/18 07:00 07:21 08:57 Pulse 76 78 Pulse Ox 95 O2 Delivery Room Air 05/29/18 00:00 Intake Total 1985 ml Output Total 30 ml Balance 1955 ml Weight (Pounds): 166 Weight (Ounces): 0.0 Weight (Calculated Kilograms): 75.975574 Constitutional: appears stated age, AAO x 3; No apparent distress; well- developed, well-nourished Respiratory: No accessory muscle use, No respiratory distress, No chest tender , No chest expansion is symmetric; chest is bilaterally symmetric; No lungs clear to percussion; lungs clear to auscultation; No crackles, No rhonchi, No rales, No stridor, No wheezing, No pleural rub, No other Cardiovascular: regular rate-rhythm; No irregularly irregular, No extra beats, No parasternal heave is noted, No JVD, No edema, No bradycardia, No tachycardia , No point of maximal impulse, No cardiac thrills are palpable; S1 and S2; No gallop/S3, No gallop/S4, No diastolic murmur, No systolic murmur, No friction rub, No click, No other Gastrointestional: No tender, No soft, No round, No distended, No pulsatile mass, No organomegaly, No guarding, No rebound, No tenderness, No hernia, No mass, No audible bowel sounds, No abnormal bowel sounds, No abdominal bruits, No spleenomegaly, No other Extremities: No normal range of motion, No non-tender, No normal inspection, No pedal edema, No calf tenderness, No normal capillary refill, No pelvis stable , No calf tenderness, No inflammation, No pedal edema, No slow capillary refill , No swelling, No other, No abrasion, No clubbing, No cyanosis, No ecchymosis, No laceration, No no lower extremity edema bilateral, No significant edema, No tenderness, No wound Neurologic/Psychiatric: no motor/sensory deficits, alert, normal mood/affect, oriented x 3, power is 5/5 both on sides Skin: No normal color, No warm/dry, No cyanosis, No cool, No diaphoresis, No damp, No ecchymosis, No jaundice, No mottled, No pallor, No rash, No tattoos/ piercings, No ulcerations, No rash on exposed areas, No ulcerations on exposed areas, No other Results/Procedures: Labs Laboratory Tests 05/29/18 05:10: White Blood Count 6.0, Red Blood Count 3.50L, Hemoglobin 10.2L, Hematocrit 31L, Mean Corpuscular Volume 90, Mean Corpuscular Hemoglobin 29, Mean Corpuscular Hemoglobin Concent 33, Red Cell Distribution Width 14.3, Platelet Count 211, Mean Platelet Volume 10.3, Neutrophils (%) (Auto) 60, Lymphocytes (%) (Auto) 29 , Monocytes (%) (Auto) 11, Eosinophils (%) (Auto) 0, Basophils (%) (Auto) 0, Neutrophils # (Auto) 3.6, Lymphocytes # (Auto) 1.7, Monocytes # (Auto) 0.6, Eosinophils # (Auto) 0.0, Basophils # (Auto) 0.0, Sodium Level 139, Potassium Level 4.2, Chloride Level 109H, Carbon Dioxide Level 20L, Anion Gap 10, Blood Urea Nitrogen 14, Creatinine 0.75, Estimat Glomerular Filtration Rate > 60, BUN/ Creatinine Ratio 19, Glucose Level 87, Calcium Level 8.7, Corrected Calcium 9.1 , Total Bilirubin 0.6, Aspartate Amino Transf (AST/SGOT) 21, Alanine Aminotransferase (ALT/SGPT) 20, Alkaline Phosphatase 81, Total Protein 5.6L, Albumin 3.5 Microbiology 05/27/18 MRSA Screen - Final, Complete MRSA not isolated A/P: Assessment/Dx: Recent orthopedic surgery, History of paroxysmal atrial fibrillation, PACs, Sinus bradycardia, Hypertension. Plan: Dizziness - multifactorial , lumber spine surgery, pain meds, PVCs. I do not think she is significantly bradycardic since the dynamed is falsely reading a low heart rate since it does not account for PVCs. We documented it when it called heart rate 52 bpm but an EKG showed 104 bpm and telemetry also demonstrated higher heart rate (when you include PVC count as well). However, I will decrease the dose of BB to 12.5mg bid and see her response. Recent orthopedic surgery, deferred to primary team. History of paroxysmal atrial fibrillation, beta blockers. Patient will be a candidate for oral anticoagulation therapy once cleared by primary team and surgery. Her CHADSVASC is 3 for gender, age and HTN. PACs, PVCs, beta blockers. Sinus bradycardia, likely sinus node dysfunction. discussed at length with patient and family. If she has symptomatic sinus node dysfunction in the near future, she may be a candidate for PPM. Hypertension. BB. She might require another antihypertensive agent. However good pain control may help with blood pressure management. SBP 107 mmhg this am. Ok cardiac pollard to transfer to inpatient rehab. Dr Appiah covering cardiology care over the weekend. Thank you for your consultation. Please call me if you have any questions. Li Kelly MD, FACP, FACC, FSCAI, FHRS, CCDS Interventional Cardiology Cardiac Electrophysiology Vascular Medicine and Endovascular Interventions Focused Exam Lactate Level 05/27/18 19:11: Lactic Acid Level 1.25 Reagan KELLY MD May 29, 2018 10:00
--- NOTE | 2018-05-29 10:56 | Progress Note-Hospitalist ---
Subjective HPI/CC On Admission Date Seen by Provider: May 29, 2018 Time Seen by Provider: 10:30 CC: Labile BP, A-Fib HPI: This is a 67 YO WF s/p L-spine surgery with a PMHx of multiple spine surgeries (7) and knee replacements (3) secondary to advanced osteoarthritis who was directly admitted to the ICU from [facility] in [place] due to labile BP and A- Fib. Pt underwent lumbar spine surgery on 05/25 without any complications, but has been slow to recover due to inadequate pain management and severe swings in SBP ranging from 220s to 60s requiring IVF. Pt was also found to have bigeminy and A-Fib which required a higher level of cardiac care. Subjective/Events-last exam Patient still having nausea and vomiting but appears to be less but will check abdominal x-ray for obstruction versus ileus No bowel movement yet so we'll add incentive to stool softeners Pain is still an issue but appears to be more comfortable today IV in her right foot so will place midline Will switch to Clinimix for peripheral nutrition to support her while she is recovering Had bradycardia last night of 40 so medications have been adjusted by Dr Carr Review of Systems General: Fatigue Gastrointestinal: Nausea, Vomiting Musculoskeletal: back pain Focused Exam Lactate Level 05/27/18 19:11: Lactic Acid Level 1.25 Objective Exam Vital Signs Vital Signs Date Time Temp Pulse Resp B/P (MAP) Pulse Ox O2 Delivery O2 Flow Rate FiO2 05/29/18 08:57 78 05/29/18 07:21 95 Room Air 05/29/18 04:54 99.0 20 140/65 (90) 05/27/18 18:30 21 Capillary Refill : General Appearance: No Apparent Distress, WD/WN, Chronically ill, Other ( improved status) Respiratory: Chest Non Tender, Lungs Clear, Normal Breath Sounds, No Accessory Muscle Use, No Respiratory Distress Cardiovascular: Regular Rate, Rhythm, No Edema, No Gallop, No JVD, No Murmur, Normal Peripheral Pulses Gastrointestinal: Normal Bowel Sounds, No Organomegaly, No Pulsatile Mass, Non Tender, Soft Back: Decreased Range of Motion Neurologic/Psychiatric: Alert, Oriented x3, No Motor/Sensory Deficits, Normal Mood/Affect Results/Procedures Lab Laboratory Tests 05/29/18 05:10 Patient resulted labs reviewed. Assessment/Plan Assessment and Plan Assess & Plan/Chief Complaint Assessment/Plan: 1. s/p uncomplicated lumbar spine surgery POD #4 2. Moderate/severe post-op pain 3. Recent A-Fib, possible bigeminy w/severe and symptomatic bradycardia on Tely consulted Dr Carr and bradycardia is now limiting activity so will wait on IRF until tomorrow 4. Nausea checking abdominal xray for ileus and obstruction but starting Clinimix in meantime 5. Osteoarthritis requiring multiple orthopedic surgeries 6. Anemia stable 7. Hypermagnesemia 8. Anxiety Diagnosis/Problems Diagnosis/Problems (1) Arrhythmia Status: Acute Qualifiers: Arrhythmia type: unspecified cardiac arrhythmia Qualified Codes: I49.9 - Cardiac arrhythmia, unspecified (2) Paroxysmal atrial fibrillation Status: Chronic (3) Nausea & vomiting Status: Acute Qualifiers: Vomiting Intractability: unspecified (4) Debility Status: Acute (5) Anxiety Status: Chronic (6) Bradycardia Status: Acute (7) Hypertension, malignant Status: Acute (8) Dizziness on standing Status: Acute (9) Hypotension Status: Acute (10) Difficulty coping Status: Acute Clinical Quality Measures DVT/VTE Risk/Contraindication: Risk Factor Score Per Nursin RFS Level Per Nursing on Admit: 4+=Very High APOLINAR KIRK DO May 29, 2018 10:56
[2018-05-29] MEDS: SENNA W/DOCUSATE (SENOKOT S) TABLET PO SCH ×2 (11:45→21:58)
[2018-05-29] MEDS: AA 4.25% W/LYTES IN D5W IV SOL 1,000 ML IV SCH (11:53)
--- NOTE | 2018-05-29 12:39 | Diagnostic Imaging Report ---
INDICATION: Vomiting status post recent spine surgery. COMPARISON: None. FINDINGS: Single supine radiographic view of the abdomen was obtained and demonstrates mild amount of gas scattered throughout nondistended loops of small bowel. There is no large collection of free intraperitoneal air. Postsurgical changes of the lumbar spine are noted. Surgical skin tammie are present. No unexpected radiopaque foreign bodies are seen. IMPRESSION: Nondistended small bowel gas pattern. Dictated by: Dictated on workstation # [id number]
--- NOTE | 2018-05-29 13:08 | Physical Therapy Progress Note ---
Therapy Progress Note PT to begin in a.m. per Dr. Devi. PT discussed with patient the plan and expectations. Education with patient and spouse on mobility. Both voice understanding and have no concern. PT to begin in a.m. 1 visit DANNI MOON PT May 29, 2018 13:08
--- NOTE | 2018-05-29 14:04 | Occ Therapy Progress Note ---
Therapy Progress Note Met with pt and spouse and discussed role of OT and therapy expectations. Pt states understanding, states she has been getting up and completing functional mobility and ADLs with assist as needed. Pt states she will be transferring to rehab for continued care. Will follow. 1, visit FRED SCOTT OT May 29, 2018 14:04
[2018-05-29] MEDS: ONDANSETRON 4 MG/2 ML (SDV) Z0FRAN IVP PRN (17:09)
[2018-05-29] MEDS: PRAMIPEXOLE 0.5 MG TAB (MIRAPEX) PO SCH (18:20)
[2018-05-29] MEDS: GABAPENTIN 300 MG (NEURONTIN) CAP PO SCH (20:20)
[2018-05-30] VITALS (7 sets, daily range): BP systolic 101–166; BP diastolic 57–84
[2018-05-30] MEDS: AA 4.25% W/LYTES IN D5W IV SOL 1,000 ML IV SCH ×3 (00:46→13:47)
[2018-05-30] MEDS: KETOROLAC 30 MG/ML VIAL IVP PRN ×3 (02:08→17:16)
[2018-05-30] MEDS: ONDANSETRON 4 MG/2 ML (SDV) Z0FRAN IVP PRN (02:08)
[2018-05-30] MEDS: PANTOPRAZOLE 40 MG (PROTONIX) TAB PO SCH (06:04)
[2018-05-30] MEDS: RT-ALBUTEROL SULF 2.5 MG/3 ML PRE-MIX VIAL INH SCH ×2 (06:26→19:25)
[2018-05-30 06:41] LABS: BASOPHILS % (AUTO) 0 % (0-10); EOSINOPHILS % (AUTO) 0 % (0-10); HEMATOCRIT 31 % (35-52); LYMPHOCYTES # (AUTO) 1.3 X 10^3 (1.0-4.0); LYMPHOCYTES % (AUTO) 20 % (12-44); MEAN CORPUSCULAR HEMOGLOBIN 29 PG (25-34); MEAN CORPUSCULAR HGB CONC 33 G/DL (32-36); MEAN CORPUSCULAR VOLUME 89 FL (80-99); MONOCYTES # (AUTO) 0.7 X 10^3 (0.0-1.0); MONOCYTES % (AUTO) 10 % (0-12); NEUTROPHILS # (AUTO) 4.6 X 10^3 (1.8-7.8); NEUTROPHILS % (AUTO) 70 % (42-75); PLATELET COUNT 224 10^3/uL (130-400); RED BLOOD COUNT 3.43 10^6/uL (4.35-5.85); RED CELL DISTRIBUTION WIDTH 14.3 % (10.0-14.5); WHITE BLOOD COUNT 6.6 10^3/uL (4.3-11.0)
[2018-05-30 07:02] LABS: ALANINE AMINOTRANSFERASE 18 U/L (0-55); ALBUMIN 3.7 GM/DL (3.2-4.5); ALKALINE PHOSPHATASE 85 U/L (40-136); BILIRUBIN,TOTAL 0.5 MG/DL (0.1-1.0); BUN/CREATININE RATIO 19; CALCIUM 8.6 MG/DL (8.5-10.1); CARBON DIOXIDE 24 MMOL/L (21-32); CHLORIDE 104 MMOL/L (98-107); CREATININE SERUM 0.77 MG/DL (0.60-1.30); GFR ESTIMATED > 60; GLUCOSE 108 MG/DL (70-105); POTASSIUM 3.7 MMOL/L (3.6-5.0); SODIUM 138 MMOL/L (135-145); TOTAL PROTEIN 5.9 GM/DL (6.4-8.2)
[2018-05-30] MEDS: SENNA W/DOCUSATE (SENOKOT S) TABLET PO SCH ×2 (08:18→20:57)
[2018-05-30] MEDS: meTOprolol TARTRATE 25 MG (LOPRESSOR) TABLET PO SCH ×2 (08:18→20:58)
[2018-05-30] MEDS: LORATADINE (CLARITIN) 10 MG TAB PO SCH (08:18)
[2018-05-30] MEDS: DOCUSATE SODIUM 100 MG (COLACE) CAP PO PRN (08:18)
--- NOTE | 2018-05-30 09:43 | Physical Therapy Evaluation ---
PT Evaluation-General Medical Diagnosis Admission Date May 27, 2018 at 17:40 Medical Diagnosis: Arythmia Onset Date: May 25, 2018 Therapy Diagnosis Therapy Diagnosis: weakness Height/Weight Height (Feet): 5 Height (Inches): 2.00 Weight (Pounds): 162 Weight (Ounces): 14.4 Precautions Precautions/Isolations: Fall Prevention, Standard Precautions Weight Bear Status Right Lower Extremity: Right Full Weight Bearing Left Lower Extremity: Left Full Weight Bearing Referral Physician: Sheri Devi Reason for Referral: Evaluation/Treatment, Strengthening, Gait Medical History Pertinent Medical History: Arthritis, Back Injury, HTN, Neuropathy Additional Medical History lumbar surgeries x 7 with delayed recovery on each, (B) TKA with 1 revision Current History Lumbar revision by Dr. Biswas 05/25/18 in [place]. Pt had drop in blood pressure with cardiac arythmia and uncontrolled pain. Was transferred to [facility] where she could receive cardiology consult and medical attention to control pain. Physical therapy has been on hold due to nausea. Social History Current Living Status: Spouse Prior/Core FIM Prior Level of Function Therapy Code Descriptions/Definitions Functional [place] Measure: 0=Not Assessed/NA 4=Minimal Assistance 1=Total Assistance 5=Supervision or Setup 2=Maximal Assistance 6=Modified [place] 3=Moderate Assistance 7=Complete [place] Therapy Quality Codes: 6 Independent with activity with or without an assistive device 5 Patient requires set up or clean up by helper. Patient completes activity by themselves 4 Supervision or touching assist (CGA). Rib[place] provide cues , steadying assist 3 The helper provides less than half the effort to complete the activity 2 The helper provides more than half the effort to complete the activity 1 Dependent. The helper does all the effort to complete an activity 7 Patient refused to complete or attempt activity 9 The patient did not perform the activity before the current illness or injury 88 Not attempted due to Medical conditions or safety concerns Functional Abilities and Goals: Independent: Patient completed the activities by him/herself, with or without an assistive device, with no assistance from a helper. Needed Some Help: Patient needed partial assistance from another person to complete activities. Dependent: A helper completed the activities for the patient. Unknown: Not Applicable: Bed Mobility: 7 Transfers (B,C,W/C) (FIM): 7 Gait: 7 Stairs: 6 Indoor Mobility (Ambulation): Independent Stairs: Independent PT Evaluation-Current Subjective Pt reports that her nausea is finally under control. She is excited to begin therapy so that she can regain strength and return to home. She indicates that her left leg is already improved since her most recent surgery. Prior to surgery she had severe pain down the left leg that occurred with walking and standing. Her symptoms have limited her social life for over 1 year. Pt/Family Goals Return to home. Objective Patient Orientation: Normal For Age Problem Solving: Good Attachments: IV ROM/Strength ROM Lower Extremities WFL Strength Lower Extremities (R) LE 5/5 throughout (L) LE 4/5 throughout Integumentary/Posture Posture forward flexed at the waist 5 degrees during standing Sensory Vision: Functional Hearing: Functional Sensation Left Lower Extremity: Impaired Sensation Lower Extremities intermittent numbness tingling in the left foot from nerve root impingement; improving since time of recent surgery Transfers Therapy Code Descriptions/Definitions Functional [place] Measure: 0=Not Assessed/NA 4=Minimal Assistance 1=Total Assistance 5=Supervision or Setup 2=Maximal Assistance 6=Modified [place] 3=Moderate Assistance 7=Complete [place] Transfers (B, C, W/C) (FIM): 5 Scootin Rollin Supine to/from Sit: 6 Sit to/from Stand: 6 bed t/f WC(FIM only if WC use): 5 Supervision during pivot transfer to monitor for balance; pt demonstrated stable sit to stand and turns using a FWW. Gait Mode of Locomotion: Walk Anticipated Mode of Locomotion: Walk Gait (FIM): 5 Distance: 400 Gait Level of Assist: 5 Gait Assistive Device: FWW Comments/Gait Description Pt ambulated 400ft with FWW and SBA with assist for IV pole. Pt demonstrated no LOB. She did require verbal cues to stand upright when using the FWW. Balance Sitting Static: Good Sitting Dynamic: Good Standing Static: Good Standing Dynamic: Fair Assessment/Needs Pt has minor balance impairment related to post surgery, pain and nausea over the last several days. She displays slight delay in fine motor skills in the left foot, likely from prolonged nerve compression. She needed assist and was educated in donning/doffing lumbar brace. She will benefit from a short round of PT to ensure safe dynamic balance and progress gait to ambulation with the least restrictive device. Rehab Potential: Good Post Rehab Potential-Barriers: none Equipment Needs FWW PT Short Term Goals Short Term Goals Time Frame: Jun 01, 2018 Gait Distance Comment: 500 Gait Level of Assist: 6 Gait Assistive Device: FWW Stairs (FIM): 5 # of Steps: 5 Stairs Level of Assist: 6 PT [place] Crawler Torch Goals Senior Care Goals PT [place] Craw[employer] Torch Goals Time Frame: Jun 02, 2018 Transfers (B,C,W/C) (FIM): 7 Gait (FIM): 6 Gait distance (FIM): 3=150 ft Distance: 150 Gait Level of Assist: 6 Gait Assistive Device: FWW, Cane Single Point Stairs (FIM): 5 # of Steps: 5 Stairs Level Of Assist: 6 PT Plan Problem List Problem List: Activity Tolerance, Safety, Balance, Gait Treatment/Plan Treatment Plan: Continue Plan of Care Treatment Plan: Education, Functional Activity Cindy, Gait Treatment Duration: Jun 02, 2018 Frequency: 11 times per week Estimated Hrs Per Day: .25 hour per day Patient and/or Family Agrees t: Yes Safety Risks/Education Patient Education: Gait Training, Reviewed Don/Doff Brace, Safety Issues Teaching Recipient: Patient Teaching Methods: Demonstration, Discussion Discharge Recommendations Therapy D/C Recommendations: Home w/ Family Support Barriers to Progress none Target Placement home with family assist Time/GCodes Time In: 855 Time Out: 915 Total Billed Treatment Time: 20 Total Billed Treatment visit, evaluation moderate complexity CHERI PIKE PT May 30, 2018 09:43
--- NOTE | 2018-05-30 10:31 | Progress Note-Hospitalist ---
Subjective HPI/CC On Admission Date Seen by Provider: May 30, 2018 Time Seen by Provider: 09:00 CC: Labile BP, A-Fib HPI: This is a 67 YO WF s/p L-spine surgery with a PMHx of multiple spine surgeries (7) and knee replacements (3) secondary to advanced osteoarthritis who was directly admitted to the ICU from [facility] in [place] due to labile BP and A- Fib. Pt underwent lumbar spine surgery on 05/25 without any complications, but has been slow to recover due to inadequate pain management and severe swings in SBP ranging from 220s to 60s requiring IVF. Pt was also found to have bigeminy and A-Fib which required a higher level of cardiac care. Subjective/Events-last exam Patient doing better overall Clinimix tolerated well Bradycardia requires reducing dose of BB and addition of Norvasc for HTN OOC Pleased with how things are going overall Ambulating well with PT and does not feel like she will require IRF as planned No nausea today Review of Systems General: Fatigue Musculoskeletal: back pain Focused Exam Lactate Level 05/27/18 19:11: Lactic Acid Level 1.25 Objective Exam Vital Signs Vital Signs Date Time Temp Pulse Resp B/P (MAP) Pulse Ox O2 Delivery O2 Flow Rate FiO2 05/30/18 13:00 70 05/30/18 12:00 98.0 20 130/73 (92) 96 Room Air 05/30/18 08:49 21 Capillary Refill : General Appearance: No Apparent Distress, WD/WN, Chronically ill, Thin Respiratory: Chest Non Tender, Lungs Clear, Normal Breath Sounds, No Accessory Muscle Use, No Respiratory Distress Cardiovascular: Regular Rate, Rhythm, No Edema, No Gallop, No JVD, No Murmur, Normal Peripheral Pulses Neurologic/Psychiatric: Alert, Oriented x3, No Motor/Sensory Deficits, Normal Mood/Affect Skin: Normal Color, Warm/Dry Results/Procedures Lab Laboratory Tests 05/30/18 06:27 Patient resulted labs reviewed. Assessment/Plan Assessment and Plan Assess & Plan/Chief Complaint Assessment/Plan: 1. s/p uncomplicated lumbar spine surgery POD #5 2. Moderate/severe post-op pain 3. Recent A-Fib, possible bigeminy w/severe and symptomatic bradycardia on Tely consulted Dr Carr and bradycardia is now limiting activity but now improving and may not need IRF after all 4. Nausea s/p abdominal xray and r/o ileus and obstruction but continue Clinimix in meantime 5. Osteoarthritis requiring multiple orthopedic surgeries 6. Anemia stable 7. Hypermagnesemia 8. Anxiety Plan: Lovenox Norvasc Clinimix Ambulate Possible DC tomorrow Monitor bradycardia Diagnosis/Problems Diagnosis/Problems (1) Arrhythmia Status: Acute Qualifiers: Arrhythmia type: unspecified cardiac arrhythmia Qualified Codes: I49.9 - Cardiac arrhythmia, unspecified (2) Paroxysmal atrial fibrillation Status: Chronic (3) Nausea & vomiting Status: Resolved Qualifiers: Vomiting Intractability: unspecified Resolution Date/Time: 05/30/18 @ 15:40 (4) Debility Status: Acute (5) Anxiety Status: Chronic (6) Bradycardia Status: Acute (7) Hypertension, malignant Status: Acute (8) Dizziness on standing Status: Acute (9) Hypotension Status: Acute (10) Difficulty coping Status: Acute Clinical Quality Measures DVT/VTE Risk/Contraindication: Risk Factor Score Per Nursin RFS Level Per Nursing on Admit: 4+=Very High APOLINAR KIRK DO May 30, 2018 10:31
--- NOTE | 2018-05-30 10:55 | Progress Note-Cardiology ---
Cardiology SOAP Progress Note Subjective: No cp or palp or syncope or shortness of breath Notes gen malaise Objective: I&O/Vital Signs 05/30/18 05/30/18 05/30/18 05/30/18 00:11 01:00 04:00 06:27 Temp 99.6 98.9 Pulse 63 59 57 Resp 18 18 B/P (MAP) 101/57 (72) 143/69 (93) Pulse Ox 96 98 97 O2 Delivery Room Air Room Air Room Air 05/30/18 05/30/18 05/30/18 05/30/18 07:00 08:01 08:30 08:49 Temp 98.2 Pulse 94 66 Resp 22 B/P (MAP) 166/84 (111) Pulse Ox 90 97 O2 Delivery Room Air Room Air FiO2 21 05/30/18 00:00 Intake Total 1680 ml Output Total 900 ml Balance 780 ml Weight (Pounds): 162 Weight (Ounces): 14.4 Weight (Calculated Kilograms): [id number] Constitutional: appears stated age, AAO x 3; No apparent distress; well- developed, well-nourished Respiratory: chest is bilaterally symmetric, lungs clear to auscultation Cardiovascular: regular rate-rhythm, S1 and S2, systolic murmur (soft SHIVAM at card base) Gastrointestional: No tender; soft; No guarding, No rebound; audible bowel sounds Extremities: No clubbing, No cyanosis, No significant edema Neurologic/Psychiatric: alert, normal mood/affect, oriented x 3, grossly intact Skin: No rash on exposed areas, No ulcerations on exposed areas Results/Procedures: Labs Laboratory Tests 05/30/18 06:27: White Blood Count 6.6, Red Blood Count 3.43L, Hemoglobin 10.0L, Hematocrit 31L, Mean Corpuscular Volume 89, Mean Corpuscular Hemoglobin 29, Mean Corpuscular Hemoglobin Concent 33, Red Cell Distribution Width 14.3, Platelet Count 224, Mean Platelet Volume 10.0, Neutrophils (%) (Auto) 70, Lymphocytes (%) (Auto) 20 , Monocytes (%) (Auto) 10, Eosinophils (%) (Auto) 0, Basophils (%) (Auto) 0, Neutrophils # (Auto) 4.6, Lymphocytes # (Auto) 1.3, Monocytes # (Auto) 0.7, Eosinophils # (Auto) 0.0, Basophils # (Auto) 0.0, Sodium Level 138, Potassium Level 3.7, Chloride Level 104, Carbon Dioxide Level 24, Anion Gap 10, Blood Urea Nitrogen 15, Creatinine 0.77, Estimat Glomerular Filtration Rate > 60, BUN/ Creatinine Ratio 19, Glucose Level 108H, Calcium Level 8.6, Corrected Calcium 8.8, Total Bilirubin 0.5, Aspartate Amino Transf (AST/SGOT) 19, Alanine Aminotransferase (ALT/SGPT) 18, Alkaline Phosphatase 85, Total Protein 5.9L, Albumin 3.7 Microbiology 05/27/18 MRSA Screen - Final, Complete MRSA not isolated Laboratory Tests 05/29/18 05:10 05/30/18 06:27 A/P: Assessment: Paroxysmal atrial fibrillation, by history Sinus node dysfunction: Ambreen wagner, PACs, PAF Echo 05/28/18: LVEF 65-70%, PASP 36 mmHg Hypertension, labile, currently quite hypertensive S/p lumbar spinal surgery Post-op anemia, managed by the Med Svce Plan: * I reviewed pt's records, spoke with her, examined her and answered her questions * Reduce bb to reduce risk of bradycardia * Add amlodipine for bp * Monitor labs ERICK RAMIREZ MD [facility] May 30, 2018 10:55
[2018-05-30] MEDS ORDERED: amLODIPine 2.5MG (NORVASC) TAB PO ONE (11:15)
[2018-05-30] MEDS ORDERED: ENOXAPARIN 40 MG/0.4 ML (LOVENOX) SYR SC SCH (11:15)
[2018-05-30] MEDS: NUCYNTA 100 MG PO SCH ×2 (11:42→20:56)
[2018-05-30] MEDS: PRAMIPEXOLE 0.5 MG TAB (MIRAPEX) PO SCH (18:26)
[2018-05-30] MEDS: GABAPENTIN 300 MG (NEURONTIN) CAP PO SCH (20:57)
[2018-05-30] MEDS: fentaNYL INJECTION 100 MCG/2 ML AMP IVP PRN (20:58)
[2018-05-31] MEDS: AA 4.25% W/LYTES IN D5W IV SOL 1,000 ML IV SCH (02:32)
[2018-05-31 03:19] VITALS: BP 110/57
[2018-05-31] MEDS: KETOROLAC 30 MG/ML VIAL IVP PRN (04:31)
[2018-05-31 05:42] LABS: BASOPHILS % (AUTO) 0 % (0-10); EOSINOPHILS % (AUTO) 0 % (0-10); HEMATOCRIT 32 % (35-52); HEMOGLOBIN 10.4 G/DL (11.5-16.0); LYMPHOCYTES # (AUTO) 1.3 X 10^3 (1.0-4.0); LYMPHOCYTES % (AUTO) 25 % (12-44); MEAN CORPUSCULAR HEMOGLOBIN 29 PG (25-34); MEAN CORPUSCULAR HGB CONC 32 G/DL (32-36); MEAN CORPUSCULAR VOLUME 91 FL (80-99); MONOCYTES # (AUTO) 0.5 X 10^3 (0.0-1.0); MONOCYTES % (AUTO) 10 % (0-12); NEUTROPHILS # (AUTO) 3.4 X 10^3 (1.8-7.8); NEUTROPHILS % (AUTO) 64 % (42-75); PLATELET COUNT 73 10^3/uL (130-400); RED BLOOD COUNT 3.58 10^6/uL (4.35-5.85); RED CELL DISTRIBUTION WIDTH 15.5 % (10.0-14.5); WHITE BLOOD COUNT 5.3 10^3/uL (4.3-11.0)
[2018-05-31] MEDS: PANTOPRAZOLE 40 MG (PROTONIX) TAB PO SCH (06:19)
[2018-05-31] MEDS: RT-ALBUTEROL SULF 2.5 MG/3 ML PRE-MIX VIAL INH SCH (06:33)
[2018-05-31 07:41] LABS: BUN/CREATININE RATIO 27; CARBON DIOXIDE 23 MMOL/L (21-32); CHLORIDE 100 MMOL/L (98-107); CREATININE SERUM 0.73 MG/DL (0.60-1.30); GFR ESTIMATED > 60; GLUCOSE 108 MG/DL (70-105); MAGNESIUM 2.4 MG/DL (1.8-2.4); POTASSIUM 4.1 MMOL/L (3.6-5.0); SODIUM 133 MMOL/L (135-145)
[2018-05-31 08:09] VITALS: BP 176/74
[2018-05-31] MEDS: LORATADINE (CLARITIN) 10 MG TAB PO SCH (08:53)
[2018-05-31] MEDS: SENNA W/DOCUSATE (SENOKOT S) TABLET PO SCH (08:54)
[2018-05-31] MEDS: meTOprolol TARTRATE 25 MG (LOPRESSOR) TABLET PO SCH (08:54)
[2018-05-31] MEDS: NUCYNTA 100 MG PO SCH ×2 (08:55→13:32)
[2018-05-31] MEDS ORDERED: amLODIPine 2.5MG (NORVASC) TAB PO SCH (09:00)
[2018-05-31] MEDS ORDERED: AMLO2.5T3 PO (11:10)
[2018-05-31] MEDS ORDERED: METO-333 PO (11:10)
[2018-05-31] MEDS ORDERED: ONDA8TAB6 PO (11:10)
[2018-05-31] MEDS ORDERED: OMEP40CA36 PO (11:10)
[2018-05-31] MEDS ORDERED: SCOP1PAT11 TD (11:10)
--- NOTE | 2018-05-31 11:12 | Discharge Summary-Hospitalist ---
Diagnosis/Chief Complaint Date of Admission May 27, 2018 at 17:40 Date of Discharge Discharge Date: May 31, 2018 Admission Diagnosis Assessment: Arrhythmia with severe bradycardia, bigeminy and h/o AF causing slow recovery from lumbar spine surgery Debility acute on chronic Depression Anxiety N/V Weight loss Anemia Plan: Home meds Anxiety treatment Cardiology is appreciated since it appears patient is at high risk for SSS or heart block Discharge Diagnosis (1) Arrhythmia Status: Resolved (2) Paroxysmal atrial fibrillation Status: Chronic (3) Nausea & vomiting Status: Resolved (4) Debility Status: Acute (5) Anxiety Status: Chronic (6) Bradycardia Status: Resolved (7) Hypertension, malignant Status: Acute (8) Dizziness on standing Status: Resolved (9) Hypotension Status: Resolved (10) Difficulty coping Status: Acute Discharge Summary Discharge Physical Exam Allergies: Uncoded Allergies: PAIN MEDICATION (Adverse Reaction, Unknown, SIDE EFFECTS FROM PAIN MEDICATIONS, 04/18/14) Vitals & I&Os Vital Signs Date Time Temp Pulse Resp B/P (MAP) Pulse Ox O2 Delivery O2 Flow Rate FiO2 05/31/18 08:45 Room Air 05/31/18 08:09 99.8 57 18 176/74 (108) 97 05/30/18 08:49 21 General Appearance: No Apparent Distress, WD/WN, Chronically ill Respiratory: Chest Non Tender, Lungs Clear, Normal Breath Sounds, No Accessory Muscle Use, No Respiratory Distress Cardiovascular: Regular Rate, Rhythm, No Edema, No Gallop, No JVD, No Murmur, Normal Peripheral Pulses Neurologic/Psychiatric: Alert, Oriented x3, No Motor/Sensory Deficits, Normal Mood/Affect Hospital Course Hospital course: Patient had a lengthy hospital course when she was transferred to higher level of care and cardiology evaluation for severe bradycardia and labile blood pressure with malignant hypertensive levels then severe orthostatic hypotension. She had had a history of atrial fibrillation workup was completed nearly 10 years ago and considering she was in a postoperative status it was a concern that she could be at risk for heart block. Patient was seen by cardiology and I appreciate their expertise. Nausea and vomiting and pain was an issue and we initiated adequate medication in addition to peripheral nutrition with Clinimix in the meantime to maintain strength. Overall patient was stabilized and remained so during the hospital course and recovery was gradual but then patient was able to be advanced on her diet and ambulating well with good pain control and everyone agreed for discharge. Labs (last 24 hrs) Laboratory Tests 05/31/18 05:15: White Blood Count 5.3, Red Blood Count 3.58L, Hemoglobin 10.4L, Hematocrit 32L, Mean Corpuscular Volume 91, Mean Corpuscular Hemoglobin 29, Mean Corpuscular Hemoglobin Concent 32, Red Cell Distribution Width 15.5H, Platelet Count 73L, Mean Platelet Volume 12.0H, Neutrophils (%) (Auto) 64, Lymphocytes (%) (Auto) 25 , Monocytes (%) (Auto) 10, Eosinophils (%) (Auto) 0, Basophils (%) (Auto) 0, Neutrophils # (Auto) 3.4, Lymphocytes # (Auto) 1.3, Monocytes # (Auto) 0.5, Eosinophils # (Auto) 0.0, Basophils # (Auto) 0.0 05/31/18 06:50: Sodium Level 133L, Potassium Level 4.1, Chloride Level 100, Carbon Dioxide Level 23, Anion Gap 10, Blood Urea Nitrogen 20H, Creatinine 0.73, Estimat Glomerular Filtration Rate > 60, BUN/Creatinine Ratio 27, Glucose Level 108H, Calcium Level 9.0, Magnesium Level 2.4 Microbiology 05/27/18 MRSA Screen - Final, Complete MRSA not isolated Patient resulted labs reviewed. Pending Labs Laboratory Tests 05/31/18 05:15: White Blood Count 5.3, Red Blood Count 3.58, Hemoglobin 10.4, Hematocrit 32, Mean Corpuscular Volume 91, Mean Corpuscular Hemoglobin 29, Mean Corpuscular Hemoglobin Concent 32, Red Cell Distribution Width 15.5, Platelet Count 73, Mean Platelet Volume 12.0, Neutrophils (%) (Auto) 64, Lymphocytes (%) (Auto) 25 , Monocytes (%) (Auto) 10, Eosinophils (%) (Auto) 0, Basophils (%) (Auto) 0, Neutrophils # (Auto) 3.4, Lymphocytes # (Auto) 1.3, Monocytes # (Auto) 0.5, Eosinophils # (Auto) 0.0, Basophils # (Auto) 0.0 05/31/18 06:50: Sodium Level 133, Potassium Level 4.1, Chloride Level 100, Carbon Dioxide Level 23, Anion Gap 10, Blood Urea Nitrogen 20, Creatinine 0.73, Estimat Glomerular Filtration Rate > 60, BUN/Creatinine Ratio 27, Glucose Level 108, Calcium Level 9.0, Magnesium Level 2.4 Discussion & Recommendations Discharge Planning: <30 minutes discharge planning Discharge Home Medications: Active Scripts Active Zofran (Ondansetron HCl) 8 Mg Tablet 8 Mg PO Q6H PRN Transderm-Scop (Scopolamine) 1 Each Patch.td72 1.5 Mg TD ONCE PRN Omeprazole 40 Mg Capsule.dr 40 Mg PO DAILY Amlodipine Besylate 2.5 Mg Tablet 2.5 Mg PO DAILY Metoprolol Tartrate 25 Mg Tablet 12.5 Mg PO BID Reported Narcan (Naloxone HCl) 4 Mg [place] NS UD PRN Vitamin B-12 (Cyanocobalamin (Vitamin B-12)) 50 Mcg Lozenge 50 Mcg PO DAILY Women's 50 Plus Multivit Tab (Mv-Mn/Folic Acid/Calcium/Vit K) 1 Each Tablet 1 Tab PO DAILY Zyrtec (Cetirizine HCl) 10 Mg Tablet 10 Mg PO DAILY Colace (Docusate Sodium) 100 Mg Capsule 100 Mg PO HS Temazepam 30 Mg Capsule 30 Mg PO HS Pramipexole Dihydrochloride (Pramipexole Di-HCl) 1 Mg Tablet 1 Mg PO 1900 Diltiazem ER (Diltiazem HCl) 180 Mg Tab.er.24h 180 Mg PO DAILY Tizanidine HCl 6 Mg Capsule 6 Mg PO BID Gabapentin 300 Mg Capsule 600 Mg PO HS TAKES 2 (300MG) CAPSULES Alprazolam 0.25 Mg Tablet 0.25 Mg PO TID PRN Nucynta (Tapentadol HCl) 100 Mg Tablet 100 Mg PO TID Instructions to patient/family Please see electronic discharge instructions given to patient. Clinical Quality Measures DVT/VTE Risk/Contraindication: Risk Factor Score Per Nursin RFS Level Per Nursing on Admit: 4+=Very High Problem Qualifiers (1) Arrhythmia: Arrhythmia type: unspecified cardiac arrhythmia Qualified Codes: I49.9 - Cardiac arrhythmia, unspecified (2) Nausea & vomiting: Vomiting Intractability: unspecified APOLINAR KIRK DO May 31, 2018 11:12
--- NOTE | 2018-05-31 15:20 | Progress Note-Cardiology ---
Cardiology SOAP Progress Note Subjective: No cp or palp or syncope or shortness of breath Wishes to go home Objective: I&O/Vital Signs 05/31/18 05/31/18 05/31/18 05/31/18 06:33 07:00 08:09 08:45 Temp 99.8 Pulse 65 57 Resp 18 B/P (MAP) 176/74 (108) Pulse Ox 95 97 O2 Delivery Room Air Room Air Room Air 05/31/18 05/31/18 12:25 13:55 Temp 99.3 B/P (MAP) 05/31/18 00:00 Intake Total 2050 ml Balance 2050 ml Weight (Pounds): 163 Weight (Ounces): 1.6 Weight (Calculated Kilograms): 73.182017 Constitutional: appears stated age, AAO x 3; No apparent distress; well- developed, well-nourished Respiratory: chest is bilaterally symmetric, lungs clear to auscultation Cardiovascular: regular rate-rhythm, S1 and S2, systolic murmur (soft SHIVAM at card base) Gastrointestional: No tender; soft; No guarding, No rebound; audible bowel sounds Extremities: No clubbing, No cyanosis, No significant edema Neurologic/Psychiatric: alert, normal mood/affect, oriented x 3, grossly intact Skin: No rash on exposed areas, No ulcerations on exposed areas Results/Procedures: Labs Laboratory Tests 05/31/18 05:15: White Blood Count 5.3, Red Blood Count 3.58L, Hemoglobin 10.4L, Hematocrit 32L, Mean Corpuscular Volume 91, Mean Corpuscular Hemoglobin 29, Mean Corpuscular Hemoglobin Concent 32, Red Cell Distribution Width 15.5H, Platelet Count 73L, Mean Platelet Volume 12.0H, Neutrophils (%) (Auto) 64, Lymphocytes (%) (Auto) 25 , Monocytes (%) (Auto) 10, Eosinophils (%) (Auto) 0, Basophils (%) (Auto) 0, Neutrophils # (Auto) 3.4, Lymphocytes # (Auto) 1.3, Monocytes # (Auto) 0.5, Eosinophils # (Auto) 0.0, Basophils # (Auto) 0.0 05/31/18 06:50: Sodium Level 133L, Potassium Level 4.1, Chloride Level 100, Carbon Dioxide Level 23, Anion Gap 10, Blood Urea Nitrogen 20H, Creatinine 0.73, Estimat Glomerular Filtration Rate > 60, BUN/Creatinine Ratio 27, Glucose Level 108H, Calcium Level 9.0, Magnesium Level 2.4 Microbiology 05/27/18 MRSA Screen - Final, Complete MRSA not isolated Laboratory Tests 05/30/18 06:27 05/31/18 05:15 05/31/18 06:50 A/P: Assessment: Paroxysmal atrial fibrillation, by history Sinus node dysfunction: S bernard, PACs, h/o PAF Echo 05/28/18: LVEF 65-70%, PASP 36 mmHg Hypertension, labile, currently quite hypertensive S/p lumbar spinal surgery Post-op anemia, managed by the Med Svce Plan: * I have reviewed her CV issues with her * OAC is recommended for stroke and DVT prophylaxis, but the Medical Svce (Dr Devi) has not cleared yet * We have advised close outpt cardiac f/u (Dr Carr, her surgical nurse) ERICK RAMIREZ MD FACP [facility] May 31, 2018 15:20
== END 2018-05-31 14:10 | disposition home or self-care (01) | DRG 309 ==
LOC: OBSVTOIN 17:40 → ICU 17:40 → 4TH 05-28 11:49
PROVIDERS: ADMIT Internal Medicine; ATTEND Internal Medicine
DX: I49.1 Atrial premature depolarization (principal); I49.3 Ventricular premature depolarization; I49.5 Sick sinus syndrome; I48.0 Paroxysmal atrial fibrillation; I95.1 Orthostatic hypotension; I10 Essential (primary) hypertension; J98.11 Atelectasis; Z98.1 Arthrodesis status; D64.9 Anemia, unspecified; R11.2 Nausea with vomiting, unspecified; E83.41 Hypermagnesemia; F41.9 Anxiety disorder, unspecified; F32.9 Major depressive disorder, single episode, unspecified; G62.9 Polyneuropathy, unspecified; M19.90 Unspecified osteoarthritis, unspecified site
CPT/HCPCS: 36415; 71045; 74018; 76937; 80048; 80053; 81000; 83605; 83735; 83874; 84100; 84484; 85007; 85025; 85027; 87081; 93005; 93306; 94640; 94664; 94760

== ENCOUNTER 2018-08-13 10:02 | Outpatient (RCR) | payer MEDICARE, OTHER ==
[~2018-08-13 10:02] MED LIST changes: +ALPR0.254 PO; +AMLO2.5T4 PO; +CETI10TA20 PO; +CYAN50LO PO; +DILT180T9 PO; +DOCU-143 PO; +METO-333 PO; +MV-M1TAB57 PO; +NALO4SPR NS; +OMEP40CA36 PO; +ONDA8TAB6 PO; +PRAM1TAB5 PO; +SCOP1PAT11 TD; +TIZA6CAP9 PO
[2018-09-24] MEDS ORDERED: METO-333 PO (08:34)
[2018-09-24] MEDS ORDERED: OMEP20TA7 PO (08:34)
[2018-09-24] MEDS ORDERED: CYAN250014 PO (08:34)
[2018-09-24] MEDS ORDERED: SENN-145 PO (08:34)
[2018-09-24] MEDS ORDERED: RIVA20TA2 PO (08:34)
== END 2018-11-11 | disposition home or self-care (01) ==
LOC: CARD 10:02
PROVIDERS: ATTEND Internal Medicine Interventional Cardiology
DX: G47.00 Insomnia, unspecified (principal); G47.61 Periodic limb movement disorder; I48.0 Paroxysmal atrial fibrillation; I49.5 Sick sinus syndrome; I49.1 Atrial premature depolarization

== ENCOUNTER → 2018-09-03 | Outpatient (CLI) | payer MEDICARE, OTHER ==
[~2018-09-03] MED LIST changes: +REGADENOSON 0.4 MG/5 ML SYR (LEXISCAN) IV ONE
[2018-09-03] MEDS: CATHETER FLUSH 10 ML SYR IV PRN ×2 (08:03→09:43)
[2018-09-03 09:40] VITALS: BP 153/90
--- NOTE | 2018-09-05 15:50 | Cardiology Stress Test Report ---
Stress Test Report Type of NM Stress Test: Test Type: LEXISCAN 0.4MG/5ML Date of Procedure/Referring: Date of Procedure: Sep 03, 2018 PCP Reagan Carr MD Admitting Physician Manoj Yeager MD Indications: Paroxysmal atrial fibrillation Baseline Heart Rate: 79 Baseline Blood Pressure: Blood Pressure Systolic: 153 Blood Pressure Diastolic: 90 Baseline EKG: Baseline EKG: sinus rhythm Summary & Conclusion: Summary: The patient was brought to the stress lab after informed consent was taken. Stress test was performed according to the Lexiscan protocol. 0.4 mg of IV Lexiscan was given. Low-grade exercise was performed. Baseline EKG showed sinus rhythm at 79 BPM. Initial blood pressure was 153/90 mmHg. Maximum heart rate was 112 bpm and blood pressure 156/103 mmHg. Patient did not have any chest pain or ST segment changes during the stress test. Rare PVCs. 10.98 mCi of Myoview were given for rest imaging and 28.4 mCi of Myoview given for stress imaging. Transient ischemic dilatation score 1.26, EF 68 percent. Normal wall motion. Nondiagnostic study. Conclusion: Pharmacological stress test was negative for ischemia. Normal LV function with no wall motion abnormalities. Nondiagnostic study. Reagan CARR MD Sep 05, 2018 15:50
== END ==
LOC: CARD 07:27
PROVIDERS: ATTEND Internal Medicine Interventional Cardiology
DX: I49.5 Sick sinus syndrome (principal); I49.1 Atrial premature depolarization; I48.0 Paroxysmal atrial fibrillation; I10 Essential (primary) hypertension
CPT/HCPCS: 78452; 93017

== ENCOUNTER 2018-09-24 07:48 | Day surgery (SDC) | payer MEDICARE, OTHER ==
[2018-09-24] VITALS (9 sets, daily range): BP systolic 107–137; BP diastolic 68–87
[~2018-09-24] VITALS: Ht 157.5 cm; Wt 74.0 kg
[~2018-09-24 07:48] MED LIST changes: -REGADENOSON 0.4 MG/5 ML SYR (LEXISCAN) IV ONE
[2018-09-24] MEDS ORDERED: LIDOCAINE 1% INJ 20 ML 20 ML VIAL ONE (07:51)
[2018-09-24] MEDS ORDERED: HEParin 1000 UNIT/ML (10ML VIAL) FOR BOLUS ONE (07:52)
[2018-09-24] MEDS ORDERED: NS IV 1000 ML 3,000 ML ONE (07:52)
[2018-09-24] MEDS ORDERED: NS IV 1000 ML 1,000 ML IV SCH ×2 (08:00→10:07)
[2018-09-24 08:16] LABS: HEMOGLOBIN 13.1 G/DL (11.5-16.0); MEAN PLATELET VOLUME 9.6 FL (7.4-10.4); RED CELL DISTRIBUTION WIDTH 15.6 % (10.0-14.5); WHITE BLOOD COUNT 4.8 10^3/uL (4.3-11.0)
[2018-09-24 08:27] LABS: INR 0.9 (0.8-1.4); PROTHROMBIN TIME PATIENT 12.9 SEC (12.2-14.7)
[2018-09-24] MEDS ORDERED: SENN-145 PO (08:34)
[2018-09-24] MEDS ORDERED: OMEP20TA7 PO (08:34)
[2018-09-24] MEDS ORDERED: RIVA20TA2 PO (08:34)
[2018-09-24] MEDS ORDERED: CYAN250014 PO (08:34)
[2018-09-24] MEDS ORDERED: METO-333 PO (08:34)
--- NOTE | 2018-09-24 08:35 | NUR ---
SPOKE WITH THE PATIENT ABOUT HER MEDICATIONS. SHE HAD A DETAILED LIST AND WE WENT OVER IT TOGETHER. SHE VERIFIED HOW SHE TAKES EACH MEDICATION. SHE DID NOT HAVE AMLODIPINE ON HER LIST HOWEVER IT WAS ON THE LIST FROM THE OFFICE, SHE DOES NOT THINK SHE IS CURRENTLY TAKING IT. I VERIFIED IT HAS NOT BEEN FILLED BY [facility] SINCE MAY FOR A 30 DAY SUPPLY, I DID NOT PUT IT ON THE MED REC.
[2018-09-24 08:36] LABS: ALANINE AMINOTRANSFERASE 18 U/L (0-55); ALBUMIN 4.1 GM/DL (3.2-4.5); ALKALINE PHOSPHATASE 133 U/L (40-136); BILIRUBIN,TOTAL 0.5 MG/DL (0.1-1.0); BUN/CREATININE RATIO 17; CALCIUM 9.7 MG/DL (8.5-10.1); CARBON DIOXIDE 25 MMOL/L (21-32); CHLORIDE 106 MMOL/L (98-107); CREATININE SERUM 0.87 MG/DL (0.60-1.30); GFR ESTIMATED > 60; GLUCOSE 81 MG/DL (70-105); POTASSIUM 3.6 MMOL/L (3.6-5.0); SODIUM 140 MMOL/L (135-145); TOTAL PROTEIN 7.3 GM/DL (6.4-8.2)
[2018-09-24] MEDS ORDERED: MIDAZOLAM 5 MG/5 ML (VERSED) VIAL ONE (08:42)
[2018-09-24] MEDS ORDERED: fentaNYL INJECTION 100 MCG/2 ML AMP ONE ×2 (08:42→09:27)
[2018-09-24] MEDS ORDERED: ONDANSETRON 4 MG/2 ML (SDV) Z0FRAN ONE (08:42)
[2018-09-24] MEDS ORDERED: NITRO DRIP 25000 MCG/D5W 250 ML IV ONE (09:21)
[2018-09-24] MEDS ORDERED: VERAPAMIL 5 MG/2 ML (CALAN) VIAL IV ONE (09:21)
--- NOTE | 2018-09-24 10:02 | Cardiac Procedure Note-CS/ASA ---
Pre-Procedure Note Pre-Op Procedure Note H&P Reviewed The H&P was reviewed, patient examined and no changes noted. Date H&P Reviewed: Sep 24, 2018 Time H&P Reviewed: 08:50 Conscious Sedation Pre-Proced Time 08:50 ASA Score 3 For ASA 3 and 4: Consider anesthesia and medical clearance. Also, for patients with a history of failed moderate sedation consider anesthesia. Airway Lungs Heart ASA score ASA 1: a normal healthy patient ASA 2: a patient with a mild systemic disease (mid diabetes, controlled hypertension, obesity ASA 3: a patient with a severe systemic disease that limits activity (angina , COPD, prior Myocardial infarction) ASA 4: a patient with an incapacitating disease that is a constant threat to life (CHF, renal failure) ASA 5: a moribund patient not expected to survive 24 hrs. (ruptured aneurysm) ASA 6: a declared brain- patient whose organs are being harvested. For emergent operations, add the letter E after the classification Mallampati Classification Grade 1 Sedation Plan Analgesia, Amnesia, Plan communicated to team members, Discussed options with patient/fam, Discussed risks with patient/fam The patient is an appropriate candidate to undergo the planned procedure, sedation, and anesthesia. The patient immediately re-assessed prior to indication. Reagan KELLY MD Sep 24, 2018 10:02
--- NOTE | 2018-09-24 10:07 | Coronary Angiography Report ---
Coronary Angiography Report DATE OF PROCEDURE: 09/24/18 INDICATION: Proximal atrial fibrillation, abnormal nuclear stress test. PREOPERATIVE DIAGNOSIS: Proximal atrial fibrillation, abnormal nuclear stress test. POSTOPERATIVE DIAGNOSIS: Patent epicardial coronary arteries. HISTORY: This is a 68-year-old lady with history of paroxysmal atrial fibrillation. Rhythm control strategy is being pursued. Class IC antiarrhythmics were recommended. Therefore a nuclear stress test was done which showed a transient ischemic dilatation score of over 1.15. Myocardial perfusion was nondiagnostic due to significant radioisotope in the stomach. Therefore, the patient was scheduled for coronary angiography. PROCEDURES PERFORMED: 1.Coronary angiography. 2.Left heart catheterization. 3. Aortic arch angiogram. COMPLICATIONS: None. SPECIMENS: None. ESTIMATED BLOOD LOSS: 10 mL ANESTHESIA: Conscious sedation ANTICOAGULATION: IV heparin CONTRAST: 45 mL. FLUOROSCOPY: 4.3 minutes. FLOUROSCOPY DOSE: 301 mgy. PROCEDURE DETAILS: The patient is a 68 female and was brought to the crime lab analyst after informed consent was taken. All the risks and complications were explained in detail; this included the risk of bleeding, vascular damage, stroke , [place] and even . The patient was draped and prepped in the usual sterile fashion. Access was gained in the right radial artery with a 6 Divehi sheath. Coronary angiography and left heart catheterization was performed with the Barton catheter. Aortic arch angiogram was performed with Barton catheter. Medical necessity was tortuosity. FINDINGS: 1.Left main: Short left main. Patent. 2.LAD: Patent. 3.Left circumflex artery: Patent. 4.RCA: Patent. 5.Left heart catheterization: LV pressure 105/6 mmHg. LVEDP 21 mmHg. Aortic pressure 103/64 mmHg. Normal LV function with no wall motion abnormalities. No gradient across the aortic valve. 6. Aortic arch angiogram: No proximal aortic dissection or aneurysm. Patent proximal segments of the great arteries including brachycephalic artery, common carotid artery and left subclavian artery. CONCLUSIONS: Patent epicardial coronary arteries. LVEDP is elevated suggesting diastolic dysfunction. Li Carr MD, FACP, FACC, [facility] Interventional Cardiology Reagan CARR MD Sep 24, 2018 10:07
--- NOTE | 2018-09-24 10:10 | Discharge Inst-Post CATH ---
Discharge Inst-CATH/EP Post Cardiac Cath/EP D/C Inst Follow Up/Plan Dr. Carr in 4 weeks. CARDIAC CATH DISCHARGE INSTRUCTIONS *Hold Metformin for 48 hours post heart cath. ACTIVITY * Go Home directly and rest. * Limit activity of the leg (or wrist if it was used) for 7 days including aerobics, swimming, jogging, bicycling, etc. * Restrict stair-climbing for 7 days if possible, if not, climb up with your non -cath leg, then bring together on the same step. * Avoid lifting, pushing, pulling or excessive movement of the affected extremity for 7 days. * Customary sexual activity may be resumed after 2 days-use caution not to use a position that strains or causes pain to the affected extremity. * No driving for 24 hours. * NO SMOKING. * Avoid straining for bowel movements for 7 days. * Gentle walking on level ground is allowed. * Returning to work will depend on the type of procedure and the results. Your doctor will discuss this with you. CALL YOUR DOCTOR FOR ANY OF THE FOLLOWING: *If bleeding from the puncture site occurs- Apply gentle pressure to site with clean cloth and call your doctor or EMS. * If a knot or lump forms under the skin, increases in size, or causes pain. * If bruising appears to be worsening or moving further down your leg instead of disappearing. * Temperature above 101 F. CARE OF YOUR GROIN INCISION; * Bruising or purple discoloration of the skin near the puncture site is common. * You may shower only, no bathtub bathing for 5 days. Be careful to avoid slipping as your leg may feel stiff. * If a closure device was used on your femoral artery, please see the attached guide regarding care of the device and your leg. * Leave the dressing on, until removed by office staff. CARE OF YOUR WRIST INCISION; * Bruising or purple discoloration of the skin near the puncture site is common. * You may shower. * DO NOT submerge wrist. * Leave dressing on, until removed by office staff.. Reagan CARR MD Sep 24, 2018 10:09
--- NOTE | 2018-09-24 10:14 | Cardiology Discharge Summary ---
Diagnosis/Chief Complaint Date of Admission 09/24/2018 Date of Discharge 09/24/2018 Admission Diagnosis Paroxysmal atrial fibrillation, abnormal nuclear stress test. Final/Discharge Diagnosis Patent epicardial coronary arteries. Chief Complaint/HPI Chief Complaint/HPI This is a 68-year-old lady with history of paroxysmal atrial fibrillation. Rhythm control strategy is being pursued. Class IC antiarrhythmics were recommended. Therefore a nuclear stress test was done which showed a transient ischemic dilatation score of over 1.15. Myocardial perfusion was nondiagnostic due to significant radioisotope in the stomach. Therefore, the patient was scheduled for coronary angiography. Discharge Summary Procedures Coronary angiography shows patent epicardial coronary arteries. Discharge Physical Examination Unremarkable. Hospital Course Was the Problem List Reviewed?: Yes Stable. Pending Labs Laboratory Tests 09/24/18 08:10: White Blood Count 4.8, Red Blood Count 4.83, Hemoglobin 13.1, Hematocrit 41, Mean Corpuscular Volume 86, Mean Corpuscular Hemoglobin 27, Mean Corpuscular Hemoglobin Concent 32, Red Cell Distribution Width 15.6, Platelet Count 285, Mean Platelet Volume 9.6, Prothrombin Time 12.9, INR Comment 0.9, Activated Partial Thromboplast Time 28, Sodium Level 140, Potassium Level 3.6, Chloride Level 106, Carbon Dioxide Level 25, Anion Gap 9, Blood Urea Nitrogen 15, Creatinine 0.87, Estimat Glomerular Filtration Rate > 60, BUN/Creatinine Ratio 17, Glucose Level 81, Calcium Level 9.7, Corrected Calcium 9.6, Total Bilirubin 0.5, Aspartate Amino Transf (AST/SGOT) 23, Alanine Aminotransferase (ALT/SGPT) 18, Alkaline Phosphatase 133, Total Protein 7.3, Albumin 4.1 Discussion & Recommendations Discussion Discharge instructions discussed at length with the patient. I will see the patient in 3-4 weeks. Follow up appt.: Dr. Carr in 3-4 weeks. Dicharge Diet: Regular Diet Activity as Tolerated: Yes Home Medications Reviewed patient Home Medication Reconciliation performed by pharmacy medication reconciliations electro mechanical technician and/or nursing. Patients Allergies have been reviewed. Discharge Home Medications: Reviewed and agree with Discharge Medication list on patient's Discharge Instruction sheet Condition at discharge Stable. Instructions to patient/family Dr. Carr in 4 weeks. Reagan CARR MD Sep 24, 2018 10:14
[2018-09-24] MEDS ORDERED: PATIENT MAY USE OWN MEDS, ALL PO SCH (10:15)
--- NOTE | 2018-09-24 10:51 | Implantation of Loop Monitor ---
Implant of Loop Monitior PROCEDURE PHYSICIAN: Li Carr MD IMPLANTATION OF LOOP MONITOR REPORT DATE OF PROCEDURE: 09/24/18 ATTENDING PHYSICIAN: Dr. Campos Carr. PERFORMING PHYSICIAN: Dr. Campos Carr. INDICATION: PAF, Long-term surveillance of atrial fibrillation PREOP DIAGNOSIS: Long-term surveillance of atrial fibrillation POSTOP DIAGNOSIS: PAF, s/p implantation of loop recorder. PROCEDURE DETAILS: The patient is a 68 female with history of paroxysmal atrial fibrillation requiring long-term surveillance. Therefore implantable loop recorder was discussed and agreed with the patient. Informed consent was taken. All risks and complications were discussed at length. The patient was draped and prepped in the usual sterile fashion. Local anesthesia was lidocaine, which was given in the substernal area close to the 4th intercostal space. Loop monitor was implanted according to the protocol. Steri-Strips were placed at the end of the procedure. There were no complications and the patient tolerated the procedure well. The device was interrogated with a voltage of 048. ANESTHESIA: Local anesthesia with lidocaine. COMPLICATIONS: None CONTRAST/FLUOROSCOPY: None CONCLUSION: 1. Successful implantation of loop monitor for long surveillance of PAF. 2. No complication and the patient tolerated the procedure well. Li Carr MD, [facility], [facility] Cardiac Electrophysiology Reagan CARR MD Sep 24, 2018 10:51 am
== END 2018-09-24 13:30 | disposition home or self-care (01) ==
LOC: CATH 07:48 → SDC 10:39 → CATH 13:30
PROVIDERS: ATTEND Internal Medicine Interventional Cardiology
DX: I48.0 Paroxysmal atrial fibrillation (principal); R94.39 Abnormal result of other cardiovascular function study; I49.5 Sick sinus syndrome; I49.1 Atrial premature depolarization; I10 Essential (primary) hypertension; Z79.899 Other long term (current) drug therapy; Z79.01 Long term (current) use of anticoagulants; Z96.652 Presence of left artificial knee joint
CPT/HCPCS: 33285; 36221; 36415; 80053; 85027; 85610; 85730; 87081; 93458

== ENCOUNTER 2018-09-27 16:18 | Emergency (ER) | payer MEDICARE, OTHER ==
[~2018-09-27] VITALS: Ht 160 cm; Wt 68.9 kg
[~2018-09-27 16:18] MED LIST changes: +CYAN250014 PO; +OMEP20TA7 PO; +RIVA20TA2 PO; +SENN-145 PO
--- OUTSIDE RECORDS SUMMARY | 2018-09-27 16:24 | XMS REPORT | Clinical Summary ---
Author Author [facility] Organization [facility] Address Unknown Phone Unavailable Care Team Providers Care Director Translation Name Role Phone Manoj Yeager MD PCP Source Comments Some departments are not documenting in the electronic medical record. If you do not see the information that you expected, contact Release of Information in the Health Information Management department at [phone] for further assistance in locating additional records.[facility] Allergies Comments Active Allergy Reactions Severity Noted Date Adhesive Tape (Rosins) RASH Medium 09/05/2016 Latex RASH Medium 09/05/2016 Opium VOMITING, High 09/05/2016 HALLUCINATION S Medications End Date Status Medication Sig Dispensed Refills Start Date Active diltiazem CD (CARDIZEM Take 180 mg 0 CD) 180 mg capsule by mouth daily. Active pramipexole (MIRAPEX) 1 Take 1 mg by 0 mg tablet mouth at bedtime daily. Active tiZANidine (ZANAFLEX) 6 Take 12 mg by 0 mg capsule mouth at bedtime daily. Active gabapentin (NEURONTIN) Take 300 mg 0 300 mg capsule by mouth twice daily. Active traMADol (ULTRAM) 50 mg Take 50 mg by 0 tablet mouth every 6 hours as needed for Pain. Active temazepam (RESTORIL) 30 Take 30 mg by 0 mg capsule mouth at bedtime as needed. Active tapentadol(+) (NUCYNTA) Take 100 mg 0 100 mg tablet by mouth every 4 hours as needed Active ALPRAZolam (XANAX) 0.25 Take 0.25 mg 0 mg tablet by mouth at bedtime as needed for Anxiety. Active cetirizine (ZYRTEC) 10 mg Take 10 mg by 0 tablet mouth every morning. Active senna/docusate Take 1 Tab by 0 (SENOKOT-S) 8.6/50 mg mouth daily. tablet Active cholecalciferol (VITAMIN Take 400 0 D-3) 400 unit tab Units by mouth daily. Active other medication Take 1 Dose 0 by mouth once. Medication Name & Strength: women's 50+ Dose(how many): once a day Frequency(how often):once a day Active Problems Not on file Family History Medical History Relation Name Comments Cancer-Prostate Father Cancer-Colon Mother Relation Name Status Comments Father Mother Social History Date Tobacco Use Types Packs/Day Years Used Never Smoker Alcohol Use Drinks/Week oz/Week Comments No 0 Standard 0.0 drinks or equivalent Sex Assigned at Date Recorded Not on file Industry Job Start Date Occupation Not on file Not on file Not on file Travel End Travel History Travel Start No recent travel history available. Last Filed Vital Signs Time Taken Vital Sign Reading 09/05/2016 9:11 AM CDT Blood Pressure 126/66 09/05/2016 9:11 AM CDT Pulse 63 09/05/2016 9:11 AM CDT Temperature 36.7 C (98.1 F) - Respiratory Rate - 09/05/2016 9:11 AM CDT Oxygen Saturation 98% - Inhaled Oxygen - Concentration 09/05/2016 9:11 AM CDT Weight 60.6 kg (133 lb 11.2 oz) 09/05/2016 9:11 AM CDT Height 160 cm (5' 3") 09/05/2016 9:11 AM CDT Body Mass Index 23.68 Plan of Treatment Health Maintenance Due Date Last Done Comments HEPATITIS C SCREENING 1949 PHYSICAL (COMPREHENSIVE) 1956 EXAM DTAP/TDAP VACCINES (1 - 1967 Tdap) BREAST CANCER SCREENING 1989 COLORECTAL CANCER 1999 SCREENING SHINGLES RECOMBINANT 1999 VACCINE (1 of 2) OSTEOPOROSIS 2014 SCREENING/MONITORING PNEUMONIA (PCV13/PPSV23) 2014 VACCINES (1 of 2 - PCV13) INFLUENZA VACCINE 01/21/2019 Results Not on filefrom Last 3 Months Insurance Type Payer Benefit Subscriber ID Effective Phone Address Plan / Dates Group Medicare MEDICARE MEDICARE xxxxxxxxxx 2014- PART A AND Present B Medicare CIGNA CIGNA xxxxxxxxxx 2014- MEDICARE Present SUPPLEMENT Advance Directives Patient has advance care planning documents on file. For more information, please contact: [address] [address]
--- OUTSIDE RECORDS SUMMARY | 2018-09-27 16:25 | XMS REPORT | Continuity of Care Document ---
Author Organization Unknown Address Unknown Allergies Active Description Code Type Severity Reaction Onset Reported/Identified Relationship to Patient Clinical Status Yes PAIN MEDICATION PAIN MEDICATION Unknown SIDE EFFECTS FR 04/18/2014 Medications There is no data. Problems Date Dx Coded Attending Type Code Diagnosis Diagnosed By 05/03/2014 LYDIA WOOD DO Ot 311 DEPRESSIVE DISORDER NEC 05/03/2014 LYDIA WOOD DO Ot 723.0 CERVICAL SPINAL STENOSIS 05/06/2014 LYDIA WOOD DO Ot 723.0 05/06/2014 LYDIA WOOD DO Ot V72.63 05/06/2014 LYDIA WOOD DO Ot V74.8 05/27/2018 LYDIA WOOD DO Ot 723.0 CERVICAL SPINAL STENOSIS 05/27/2018 LYDIA WOOD DO Ot V72.63 PRE-PROCEDURAL LABORATORY EXAMINATION 05/27/2018 LYDIA WOOD DO Ot V74.8 SCREEN-BACTERIAL DIS NEC 05/28/2018 LYDIA WOOD DO Ot 723.0 CERVICAL SPINAL STENOSIS 05/28/2018 LYDIA WOOD DO Ot V72.63 PRE-PROCEDURAL LABORATORY EXAMINATION 05/28/2018 LYDIA WOOD DO Ot V74.8 SCREEN-BACTERIAL DIS NEC 05/31/2018 YELENA BAEZ APOLINAR Ot D64.9 ANEMIA, UNSPECIFIED 05/31/2018 YELENA DO APOLINAR Ot E83.41 HYPERMAGNESEMIA 05/31/2018 YELENA BAEZ APOLINAR Ot F32.9 MAJOR DEPRESSIVE DISORDER, SINGLE EPISOD 05/31/2018 YELENA DO APOLINAR Ot F41.9 ANXIETY DISORDER, UNSPECIFIED 05/31/2018 YELENA DO APOLINAR Ot G62.9 POLYNEUROPATHY, UNSPECIFIED 05/31/2018 YELENA DO, APOLINAR Ot I10 ESSENTIAL (PRIMARY) HYPERTENSION 05/31/2018 KIRK DO APOLINAR Ot I48.0 PAROXYSMAL ATRIAL FIBRILLATION 05/31/2018 YELENA DO APOLINAR Ot I49.1 ATRIAL PREMATURE DEPOLARIZATION 05/31/2018 KIRK DO, APOLINAR Ot I49.3 VENTRICULAR PREMATURE DEPOLARIZATION 05/31/2018 KIRK DO, APOLINAR Ot I49.5 SICK SINUS SYNDROME 05/31/2018 KIRK DO, APOLINAR Ot I95.1 ORTHOSTATIC HYPOTENSION 05/31/2018 KIRK DO, APOLINAR Ot J98.11 ATELECTASIS 05/31/2018 KIRK DO, APOLINAR Ot M19.90 UNSPECIFIED OSTEOARTHRITIS, UNSPECIFIED 05/31/2018 KIRK DO, APOLINAR Ot R11.2 NAUSEA WITH VOMITING, UNSPECIFIED 05/31/2018 KIRK DO, APOLINAR Ot Z98.1 ARTHRODESIS STATUS 08/07/2018 ROBIN BALBUENA, Reagan CAMPOS Ot G47.33 OBSTRUCTIVE SLEEP APNEA (ADULT) (PEDIATR 08/26/2018 GLENNA BALBUENA, DENISE Hernandez Ot G47.33 OBSTRUCTIVE SLEEP APNEA (ADULT) (PEDIATR 09/01/2018 Reagan KELLY MD, Ot I49.5 SICK SINUS SYNDROME 09/01/2018 Reagan KLELY MD Ot G47.00 INSOMNIA, UNSPECIFIED 09/01/2018 Reagan KELLY MD Ot G47.61 PERIODIC LIMB MOVEMENT DISORDER 09/01/2018 Reagan KELLY MD Ot I48.0 PAROXYSMAL ATRIAL FIBRILLATION 09/01/2018 Reagan KELLY MD, Ot I49.1 ATRIAL PREMATURE DEPOLARIZATION 09/01/2018 Reagan KELLY MD Ot I49.5 SICK SINUS SYNDROME 09/01/2018 GLENNA BALBUENA, DENISE Hernandez Ot G47.33 OBSTRUCTIVE SLEEP APNEA (ADULT) (PEDIATR 09/03/2018 Reagan KELLY MD Ot G47.00 INSOMNIA, UNSPECIFIED 09/03/2018 Reagan KELLY MD, Ot G47.61 PERIODIC LIMB MOVEMENT DISORDER 09/03/2018 Reagan KELLY MD Ot I48.0 PAROXYSMAL ATRIAL FIBRILLATION 09/03/2018 Reagan KELLY MD Ot I49.1 ATRIAL PREMATURE DEPOLARIZATION 09/03/2018 Reagan KELLY MD Ot I49.5 SICK SINUS SYNDROME 09/07/2018 Reagan KELLY MD Ot I10 ESSENTIAL (PRIMARY) HYPERTENSION 09/07/2018 KHALID MD, M ANDRES Ot I48.0 PAROXYSMAL ATRIAL FIBRILLATION 09/07/2018 Reagan KELLY MD Ot I49.1 ATRIAL PREMATURE DEPOLARIZATION 09/07/2018 Reagan KELLY MD, Ot I49.5 SICK SINUS SYNDROME 09/22/2018 LYDIA WOOD DO Ot 723.0 CERVICAL SPINAL STENOSIS 09/22/2018 LYDIA WOOD DO Ot V72.63 PRE-PROCEDURAL LABORATORY EXAMINATION 09/22/2018 LYDIA WOOD DO Ot V74.8 SCREEN-BACTERIAL DIS NEC 09/22/2018 Reagan KELLY MD Ot G47.00 INSOMNIA, UNSPECIFIED 09/22/2018 Reagan KELLY MD, Ot G47.61 PERIODIC LIMB MOVEMENT DISORDER 09/22/2018 Reagan KELLY MD Ot I48.0 PAROXYSMAL ATRIAL FIBRILLATION 09/22/2018 Reagan KELLY MD Ot I49.1 ATRIAL PREMATURE DEPOLARIZATION 09/22/2018 Reagan KELLY MD Ot I49.5 SICK SINUS SYNDROME 09/22/2018 Reagan KELLY MD Ot I10 ESSENTIAL (PRIMARY) HYPERTENSION 09/22/2018 Reagan KELLY MD Ot I48.0 PAROXYSMAL ATRIAL FIBRILLATION 09/22/2018 Reagan KELLY MD Ot I49.1 ATRIAL PREMATURE DEPOLARIZATION 09/22/2018 Reagan KELLY MD Ot I49.5 SICK SINUS SYNDROME 09/22/2018 DENISE MANZANARES MD Ot G47.33 OBSTRUCTIVE SLEEP APNEA (ADULT) (PEDIATR 09/23/2018 Reagan KELLY MD Ot I10 ESSENTIAL (PRIMARY) HYPERTENSION 09/23/2018 Reagan KELLY MD Ot I48.0 PAROXYSMAL ATRIAL FIBRILLATION 09/23/2018 Reagan KELLY MD Ot I49.1 ATRIAL PREMATURE DEPOLARIZATION 09/23/2018 Reagan KELLY MD Ot I49.5 SICK SINUS SYNDROME 09/27/2018 Reagan KELLY MD Ot I10 ESSENTIAL (PRIMARY) HYPERTENSION 09/27/2018 Reagan KELLY MD Ot I48.0 PAROXYSMAL ATRIAL FIBRILLATION 09/27/2018 Reagan KELLY MD, Ot I49.1 ATRIAL PREMATURE DEPOLARIZATION 09/27/2018 Reagan KELLY MD, Ot I49.5 SICK SINUS SYNDROME 09/27/2018 Reagan KELLY MD Ot R94.39 ABNORMAL RESULT OF OTHER CARDIOVASCULAR 09/27/2018 Reagan KELLY MD Ot Z79.01 GSA COORDINATOR (CURRENT) USE OF ANTICOAGULANT 09/27/2018 Reagan KELLY MD, Ot Z79.899 OTHER SENIOR CARE (CURRENT) DRUG THERAPY 09/27/2018 Reagan KELLY MD, Ot Z96.652 PRESENCE OF LEFT ARTIFICIAL KNEE JOINT Procedures Code Description Performed By Performed On 77.79 EXCISE BONE FOR GFT NEC 05/02/2014 80.51 EXCISION INTERVERT DISC 05/02/2014 81.02 OTH CERVICAL FUSION OF ANTERIOR COLUMN, 05/02/2014 81.62 FUSION/REFUS OF 2-3 VERTEBRAE 05/02/2014 84.51 INSERTION OF INTERBODY SPINAL FUSION DEV 05/02/2014 Results Test Result Range Methicillin resistant Staphylococcus aureus (MRSA) screening culture - 18:51 Methicillin resistant Staphylococcus aureus (MRSA) screening culture NEG NRG Complete blood count (CBC) with automated white blood cell (WBC) differential - 05/27/18 19:11 Blood leukocytes automated count (number/volume) 7.7 10*3/uL 4.3-11.0 Blood erythrocytes automated count (number/volume) 3.82 10*6/uL 4.35-5.85 Venous blood hemoglobin measurement (mass/volume) 11.0 g/dL 11.5-16.0 Blood hematocrit (volume fraction) 34 % 35-52 Automated erythrocyte mean corpuscular volume 89 [foz_us] 80-99 Automated erythrocyte mean corpuscular hemoglobin (mass per erythrocyte) 29 pg 25-34 Automated erythrocyte mean corpuscular hemoglobin concentration measurement ( mass/volume) 32 g/dL 32-36 Automated erythrocyte distribution width ratio 14.5 % 10.0-14.5 Automated blood platelet count (count/volume) 208 10*3/uL 130-400 Automated blood platelet mean volume measurement 10.2 [foz_us] 7.4-10.4 Automated blood neutrophils/100 leukocytes 90 % 42-75 Automated blood lymphocytes/100 leukocytes 8 % 12-44 Blood monocytes/100 leukocytes 3 % 0-12 Automated blood eosinophils/100 leukocytes 0 % 0-10 Automated blood basophils/100 leukocytes 0 % 0-10 Blood neutrophils automated count (number/volume) 6.9 10*3 1.8-7.8 Blood lymphocytes automated count (number/volume) 0.6 10*3 1.0-4.0 Blood monocytes automated count (number/volume) 0.2 10*3 0.0-1.0 Automated eosinophil count 0.0 10*3/uL 0.0-0.3 Automated blood basophil count (count/volume) 0.0 10*3/uL 0.0-0.1 Blood lactic acid measurement (moles/volume) - 05/27/18 19:11 Blood lactic acid measurement (moles/volume) 1.25 mmol/L 0.50-2.00 Blood manual differential performed detection - 05/27/18 19:11 Blood monocytes/100 leukocytes 1 % NRG Manual blood segmented neutrophils/100 leukocytes 83 % NRG Blood band neutrophils/100 leukocytes 1 % NRG Manual blood lymphocytes/100 leukocytes 15 % NRG Manual eosinophils/100 leukocytes in nose 0 % NRG Manual blood basophils/100 leukocytes 0 % NRG Blood erythrocyte morphology finding identification NORMAL BANNER Comprehensive metabolic panel - 05/27/18 19:11 Serum or plasma sodium measurement (moles/volume) 138 mmol/L 135-145 Serum or plasma potassium measurement (moles/volume) 3.7 mmol/L 3.6-5.0 Serum or plasma chloride measurement (moles/volume) 106 mmol/L 98-107 Carbon dioxide 20 mmol/L 21-32 Serum or plasma anion gap determination (moles/volume) 12 mmol/L 5-14 Serum or plasma urea nitrogen measurement (mass/volume) 8 mg/dL 7-18 Serum or plasma creatinine measurement (mass/volume) 0.69 mg/dL 0.60-1.30 Serum or plasma urea nitrogen/creatinine mass ratio 12 NRG Serum or plasma creatinine measurement with calculation of estimated glomerular filtration rate > NRG Serum or plasma glucose measurement (mass/volume) 136 mg/dL 70-105 Serum or plasma calcium measurement (mass/volume) 8.9 mg/dL 8.5-10.1 Serum or plasma total bilirubin measurement (mass/volume) 0.4 mg/dL 0.1-1.0 Serum or plasma alkaline phosphatase measurement (enzymatic activity/volume) 101 U/L 40-136 Serum or plasma aspartate aminotransferase measurement (enzymatic activity/ volume) 26 U/L 5-34 Serum or plasma alanine aminotransferase measurement (enzymatic activity/volume ) 26 U/L 0-55 Serum or plasma protein measurement (mass/volume) 6.7 g/dL 6.4-8.2 Serum or plasma albumin measurement (mass/volume) 4.0 g/dL 3.2-4.5 CALCIUM CORRECTED 8.9 mg/dL 8.5-10.1 Serum or plasma troponin i.cardiac measurement (mass/volume) - 05/27/18 19:11 Serum or plasma troponin i.cardiac measurement (mass/volume) < ng/ mL <0.30 Myoglobin, serum - 05/27/18 19:11 Myoglobin, serum 42.4 ng/mL 10.0-92.0 Complete urinalysis with reflex to culture - 05/27/18 22:21 Urine color determination YELLOW NRG Urine clarity determination CLEAR NRG Urine pH measurement by test strip 7 5-9 Specific gravity of urine by test strip 1.005 1.016- 1.022 Urine protein assay by test strip, semi-quantitative NEGATIVE NEGATIVE Urine glucose detection by automated test strip 1+ NEGATIVE Erythrocytes detection in urine sediment by light microscopy NEGATIVE NEGATIVE Urine ketones detection by automated test strip NEGATIVE NEGATIVE Urine nitrite detection by test strip NEGATIVE NEGATIVE Urine total bilirubin detection by test strip NEGATIVE NEGATIVE Urine urobilinogen measurement by automated test strip (mass/volume) NORMAL NORMAL Urine leukocyte esterase detection by dipstick NEGATIVE NEGATIVE Automated urine sediment erythrocyte count by microscopy (number/high power field) NONE NRG Automated urine sediment leukocyte count by microscopy (number/high power field ) NONE NRG Bacteria detection in urine sediment by light microscopy NONE NRG Squamous epithelial cells detection in urine sediment by light microscopy RARE NRG Crystals detection in urine sediment by light microscopy NONE NRG Casts detection in urine sediment by light microscopy NONE NRG Mucus detection in urine sediment by light microscopy NEGATIVE NRG Complete urinalysis with reflex to culture NO NRG Complete blood count (CBC) with automated white blood cell (WBC) differential - 05/28/18 03:10 Blood leukocytes automated count (number/volume) 8.0 10*3/uL 4.3-11.0 Blood erythrocytes automated count (number/volume) 3.74 10*6/uL 4.35-5.85 Venous blood hemoglobin measurement (mass/volume) 10.8 g/dL 11.5-16.0 Blood hematocrit (volume fraction) 33 % 35-52 Automated erythrocyte mean corpuscular volume 89 [foz_us] 80-99 Automated erythrocyte mean corpuscular hemoglobin (mass per erythrocyte) 29 pg 25-34 Automated erythrocyte mean corpuscular hemoglobin concentration measurement ( mass/volume) 33 g/dL 32-36 Automated erythrocyte distribution width ratio 14.6 % 10.0-14.5 Automated blood platelet count (count/volume) 231 10*3/uL 130-400 Automated blood platelet mean volume measurement 10.2 [foz_us] 7.4-10.4 Automated blood neutrophils/100 leukocytes 82 % 42-75 Automated blood lymphocytes/100 leukocytes 11 % 12-44 Blood monocytes/100 leukocytes 7 % 0-12 Automated blood eosinophils/100 leukocytes 0 % 0-10 Automated blood basophils/100 leukocytes 0 % 0-10 Blood neutrophils automated count (number/volume) 6.6 10*3 1.8-7.8 Blood lymphocytes automated count (number/volume) 0.9 10*3 1.0-4.0 Blood monocytes automated count (number/volume) 0.6 10*3 0.0-1.0 Automated eosinophil count 0.0 10*3/uL 0.0-0.3 Automated blood basophil count (count/volume) 0.0 10*3/uL 0.0-0.1 Serum or plasma phosphate measurement (mass/volume) - 05/28/18 03:10 Serum or plasma phosphate measurement (mass/volume) 2.4 mg/dL 2.3-4.7 Magnesium - 05/28/18 03:10 Magnesium 2.6 mg/dL 1.8-2.4 Comprehensive metabolic panel - 05/28/18 03:10 Serum or plasma sodium measurement (moles/volume) 138 mmol/L 135-145 Serum or plasma potassium measurement (moles/volume) 3.7 mmol/L 3.6-5.0 Serum or plasma chloride measurement (moles/volume) 104 mmol/L 98-107 Carbon dioxide 21 mmol/L 21-32 Serum or plasma anion gap determination (moles/volume) 13 mmol/L 5-14 Serum or plasma urea nitrogen measurement (mass/volume) 7 mg/dL 7-18 Serum or plasma creatinine measurement (mass/volume) 0.71 mg/dL 0.60-1.30 Serum or plasma urea nitrogen/creatinine mass ratio 10 NRG Serum or plasma creatinine measurement with calculation of estimated glomerular filtration rate > NRG Serum or plasma glucose measurement (mass/volume) 115 mg/dL 70-105 Serum or plasma calcium measurement (mass/volume) 9.0 mg/dL 8.5-10.1 Serum or plasma total bilirubin measurement (mass/volume) 0.4 mg/dL 0.1-1.0 Serum or plasma alkaline phosphatase measurement (enzymatic activity/volume) 95 U/L 40-136 Serum or plasma aspartate aminotransferase measurement (enzymatic activity/ volume) 25 U/L 5-34 Serum or plasma alanine aminotransferase measurement (enzymatic activity/volume ) 22 U/L 0-55 Serum or plasma protein measurement (mass/volume) 6.8 g/dL 6.4-8.2 Serum or plasma albumin measurement (mass/volume) 4.1 g/dL 3.2-4.5 CALCIUM CORRECTED 8.9 mg/dL 8.5-10.1 Complete blood count (CBC) with automated white blood cell (WBC) differential - 05/29/18 05:10 Blood leukocytes automated count (number/volume) 6.0 10*3/uL 4.3-11.0 Blood erythrocytes automated count (number/volume) 3.50 10*6/uL 4.35-5.85 Venous blood hemoglobin measurement (mass/volume) 10.2 g/dL 11.5-16.0 Blood hematocrit (volume fraction) 31 % 35-52 Automated erythrocyte mean corpuscular volume 90 [foz_us] 80-99 Automated erythrocyte mean corpuscular hemoglobin (mass per erythrocyte) 29 pg 25-34 Automated erythrocyte mean corpuscular hemoglobin concentration measurement ( mass/volume) 33 g/dL 32-36 Automated erythrocyte distribution width ratio 14.3 % 10.0-14.5 Automated blood platelet count (count/volume) 211 10*3/uL 130-400 Automated blood platelet mean volume measurement 10.3 [foz_us] 7.4-10.4 Automated blood neutrophils/100 leukocytes 60 % 42-75 Automated blood lymphocytes/100 leukocytes 29 % 12-44 Blood monocytes/100 leukocytes 11 % 0-12 Automated blood eosinophils/100 leukocytes 0 % 0-10 Automated blood basophils/100 leukocytes 0 % 0-10 Blood neutrophils automated count (number/volume) 3.6 10*3 1.8-7.8 Blood lymphocytes automated count (number/volume) 1.7 10*3 1.0-4.0 Blood monocytes automated count (number/volume) 0.6 10*3 0.0-1.0 Automated eosinophil count 0.0 10*3/uL 0.0-0.3 Automated blood basophil count (count/volume) 0.0 10*3/uL 0.0-0.1 Comprehensive metabolic panel - 05/29/18 05:10 Serum or plasma sodium measurement (moles/volume) 139 mmol/L 135-145 Serum or plasma potassium measurement (moles/volume) 4.2 mmol/L 3.6-5.0 Serum or plasma chloride measurement (moles/volume) 109 mmol/L 98-107 Carbon dioxide 20 mmol/L 21-32 Serum or plasma anion gap determination (moles/volume) 10 mmol/L 5-14 Serum or plasma urea nitrogen measurement (mass/volume) 14 mg/dL 7-18 Serum or plasma creatinine measurement (mass/volume) 0.75 mg/dL 0.60-1.30 Serum or plasma urea nitrogen/creatinine mass ratio 19 NRG Serum or plasma creatinine measurement with calculation of estimated glomerular filtration rate > NRG Serum or plasma glucose measurement (mass/volume) 87 mg/dL 70-105 Serum or plasma calcium measurement (mass/volume) 8.7 mg/dL 8.5-10.1 Serum or plasma total bilirubin measurement (mass/volume) 0.6 mg/dL 0.1-1.0 Serum or plasma alkaline phosphatase measurement (enzymatic activity/volume) 81 U/L 40-136 Serum or plasma aspartate aminotransferase measurement (enzymatic activity/ volume) 21 U/L 5-34 Serum or plasma alanine aminotransferase measurement (enzymatic activity/volume ) 20 U/L 0-55 Serum or plasma protein measurement (mass/volume) 5.6 g/dL 6.4-8.2 Serum or plasma albumin measurement (mass/volume) 3.5 g/dL 3.2-4.5 CALCIUM CORRECTED 9.1 mg/dL 8.5-10.1 Complete blood count (CBC) with automated white blood cell (WBC) differential - 05/30/18 06:27 Blood leukocytes automated count (number/volume) 6.6 10*3/uL 4.3-11.0 Blood erythrocytes automated count (number/volume) 3.43 10*6/uL 4.35-5.85 Venous blood hemoglobin measurement (mass/volume) 10.0 g/dL 11.5-16.0 Blood hematocrit (volume fraction) 31 % 35-52 Automated erythrocyte mean corpuscular volume 89 [foz_us] 80-99 Automated erythrocyte mean corpuscular hemoglobin (mass per erythrocyte) 29 pg 25-34 Automated erythrocyte mean corpuscular hemoglobin concentration measurement ( mass/volume) 33 g/dL 32-36 Automated erythrocyte distribution width ratio 14.3 % 10.0-14.5 Automated blood platelet count (count/volume) 224 10*3/uL 130-400 Automated blood platelet mean volume measurement 10.0 [foz_us] 7.4-10.4 Automated blood neutrophils/100 leukocytes 70 % 42-75 Automated blood lymphocytes/100 leukocytes 20 % 12-44 Blood monocytes/100 leukocytes 10 % 0-12 Automated blood eosinophils/100 leukocytes 0 % 0-10 Automated blood basophils/100 leukocytes 0 % 0-10 Blood neutrophils automated count (number/volume) 4.6 10*3 1.8-7.8 Blood lymphocytes automated count (number/volume) 1.3 10*3 1.0-4.0 Blood monocytes automated count (number/volume) 0.7 10*3 0.0-1.0 Automated eosinophil count 0.0 10*3/uL 0.0-0.3 Automated blood basophil count (count/volume) 0.0 10*3/uL 0.0-0.1 Comprehensive metabolic panel - 05/30/18 06:27 Serum or plasma sodium measurement (moles/volume) 138 mmol/L 135-145 Serum or plasma potassium measurement (moles/volume) 3.7 mmol/L 3.6-5.0 Serum or plasma chloride measurement (moles/volume) 104 mmol/L 98-107 Carbon dioxide 24 mmol/L 21-32 Serum or plasma anion gap determination (moles/volume) 10 mmol/L 5-14 Serum or plasma urea nitrogen measurement (mass/volume) 15 mg/dL 7-18 Serum or plasma creatinine measurement (mass/volume) 0.77 mg/dL 0.60-1.30 Serum or plasma urea nitrogen/creatinine mass ratio 19 NRG Serum or plasma creatinine measurement with calculation of estimated glomerular filtration rate > NRG Serum or plasma glucose measurement (mass/volume) 108 mg/dL 70-105 Serum or plasma calcium measurement (mass/volume) 8.6 mg/dL 8.5-10.1 Serum or plasma total bilirubin measurement (mass/volume) 0.5 mg/dL 0.1-1.0 Serum or plasma alkaline phosphatase measurement (enzymatic activity/volume) 85 U/L 40-136 Serum or plasma aspartate aminotransferase measurement (enzymatic activity/ volume) 19 U/L 5-34 Serum or plasma alanine aminotransferase measurement (enzymatic activity/volume ) 18 U/L 0-55 Serum or plasma protein measurement (mass/volume) 5.9 g/dL 6.4-8.2 Serum or plasma albumin measurement (mass/volume) 3.7 g/dL 3.2-4.5 CALCIUM CORRECTED 8.8 mg/dL 8.5-10.1 Complete blood count (CBC) with automated white blood cell (WBC) differential - 05/31/18 05:15 Blood leukocytes automated count (number/volume) 5.3 10*3/uL 4.3-11.0 Blood erythrocytes automated count (number/volume) 3.58 10*6/uL 4.35-5.85 Venous blood hemoglobin measurement (mass/volume) 10.4 g/dL 11.5-16.0 Blood hematocrit (volume fraction) 32 % 35-52 Automated erythrocyte mean corpuscular volume 91 [foz_us] 80-99 Automated erythrocyte mean corpuscular hemoglobin (mass per erythrocyte) 29 pg 25-34 Automated erythrocyte mean corpuscular hemoglobin concentration measurement ( mass/volume) 32 g/dL 32-36 Automated erythrocyte distribution width ratio 15.5 % 10.0-14.5 Automated blood platelet count (count/volume) 73 10*3/uL 130-400 Automated blood platelet mean volume measurement 12.0 [foz_us] 7.4-10.4 Automated blood neutrophils/100 leukocytes 64 % 42-75 Automated blood lymphocytes/100 leukocytes 25 % 12-44 Blood monocytes/100 leukocytes 10 % 0-12 Automated blood eosinophils/100 leukocytes 0 % 0-10 Automated blood basophils/100 leukocytes 0 % 0-10 Blood neutrophils automated count (number/volume) 3.4 10*3 1.8-7.8 Blood lymphocytes automated count (number/volume) 1.3 10*3 1.0-4.0 Blood monocytes automated count (number/volume) 0.5 10*3 0.0-1.0 Automated eosinophil count 0.0 10*3/uL 0.0-0.3 Automated blood basophil count (count/volume) 0.0 10*3/uL 0.0-0.1 Whole blood basic metabolic panel - 05/31/18 06:50 Serum or plasma sodium measurement (moles/volume) 133 mmol/L 135-145 Serum or plasma potassium measurement (moles/volume) 4.1 mmol/L 3.6-5.0 Serum or plasma chloride measurement (moles/volume) 100 mmol/L 98-107 Carbon dioxide 23 mmol/L 21-32 Serum or plasma anion gap determination (moles/volume) 10 mmol/L 5-14 Serum or plasma urea nitrogen measurement (mass/volume) 20 mg/dL 7-18 Serum or plasma creatinine measurement (mass/volume) 0.73 mg/dL 0.60-1.30 Serum or plasma urea nitrogen/creatinine mass ratio 27 NRG Serum or plasma creatinine measurement with calculation of estimated glomerular filtration rate > NRG Serum or plasma glucose measurement (mass/volume) 108 mg/dL 70-105 Serum or plasma calcium measurement (mass/volume) 9.0 mg/dL 8.5-10.1 Magnesium - 05/31/18 06:50 Magnesium 2.4 mg/dL 1.8-2.4 Automated blood complete blood count (hemogram) panel - 09/24/18 08:10 Blood leukocytes automated count (number/volume) 4.8 10*3/uL 4.3-11.0 Blood erythrocytes automated count (number/volume) 4.83 10*6/uL 4.35-5.85 Venous blood hemoglobin measurement (mass/volume) 13.1 g/dL 11.5-16.0 Blood hematocrit (volume fraction) 41 % 35-52 Automated erythrocyte mean corpuscular volume 86 [foz_us] 80-99 Automated erythrocyte mean corpuscular hemoglobin (mass per erythrocyte) 27 pg 25-34 Automated erythrocyte mean corpuscular hemoglobin concentration measurement ( mass/volume) 32 g/dL 32-36 Automated erythrocyte distribution width ratio 15.6 % 10.0-14.5 Automated blood platelet count (count/volume) 285 10*3/uL 130-400 Automated blood platelet mean volume measurement 9.6 [foz_us] 7.4-10.4 PT panel in platelet poor plasma by coagulation assay - 09/24/18 08:10 Prothrombin time (PT) in platelet poor plasma by coagulation assay 12.9 s 12.2-14.7 INR in platelet poor plasma or blood by coagulation assay 0.9 0.8-1.4 Activated partial thromboplastin time (aPTT) in platelet poor plasma bycoagulation assay - 09/24/18 08:10 Activated partial thromboplastin time (aPTT) in platelet poor plasma bycoagulation assay 28 s 24-35 Comprehensive metabolic panel - 09/24/18 08:10 Serum or plasma sodium measurement (moles/volume) 140 mmol/L 135-145 Serum or plasma potassium measurement (moles/volume) 3.6 mmol/L 3.6-5.0 Serum or plasma chloride measurement (moles/volume) 106 mmol/L 98-107 Carbon dioxide 25 mmol/L 21-32 Serum or plasma anion gap determination (moles/volume) 9 mmol/L 5-14 Serum or plasma urea nitrogen measurement (mass/volume) 15 mg/dL 7-18 Serum or plasma creatinine measurement (mass/volume) 0.87 mg/dL 0.60-1.30 Serum or plasma urea nitrogen/creatinine mass ratio 17 NRG Serum or plasma creatinine measurement with calculation of estimated glomerular filtration rate > NRG Serum or plasma glucose measurement (mass/volume) 81 mg/dL 70-105 Serum or plasma calcium measurement (mass/volume) 9.7 mg/dL 8.5-10.1 Serum or plasma total bilirubin measurement (mass/volume) 0.5 mg/dL 0.1-1.0 Serum or plasma alkaline phosphatase measurement (enzymatic activity/volume) 133 U/L 40-136 Serum or plasma aspartate aminotransferase measurement (enzymatic activity/ volume) 23 U/L 5-34 Serum or plasma alanine aminotransferase measurement (enzymatic activity/volume ) 18 U/L 0-55 Serum or plasma protein measurement (mass/volume) 7.3 g/dL 6.4-8.2 Serum or plasma albumin measurement (mass/volume) 4.1 g/dL 3.2-4.5 CALCIUM CORRECTED 9.6 mg/dL 8.5-10.1 Methicillin resistant Staphylococcus aureus (MRSA) screening culture - 08:10 Methicillin resistant Staphylococcus aureus (MRSA) screening culture NEG NRG Encounters ACCT No. Visit Date/Time Discharge Status Pt. Type Provider Facility Loc./Unit Complaint [id number] 10/05/2016 11:07:01 ACT Unknown [id number] 09/24/2018 07:48:00 09/24/2018 13:30:00 DIS Outpatient Reagan KELLY MD [facility] CATH PAF, SENIOR CARE SURVEILLANCE [id number] 09/03/2018 07:27:00 09/03/2018 23:59:59 CLS Outpatient Reagan KELLY MD [facility] CARD PAF [id number] 08/26/2018 12:43:00 08/26/2018 23:59:59 CLS Preadmit DENISE MANZANARES MD [facility] SLEEP G47.33 AVI [id number] 08/13/2018 10:02:00 08/13/2018 23:59:59 CLS Outpatient Reagan KELLY MD [facility] CARD SINUS NODE DYSFUNCTION [id number] 08/06/2018 15:01:00 08/06/2018 23:59:59 CLS Preadmit Reagan KELLY MD [facility] SLEEP SLEEP DISTURBANCE [id number] 08/05/2018 09:18:00 08/05/2018 23:59:59 CLS Preadmit Reagan KELLY MD [facility] CARD PAC,PAF,HTN [id number] 08/04/2018 16:29:00 08/04/2018 23:59:59 CLS Preadmit Reagan KELLY MD [facility] CARD PAC [id number] 05/27/2018 17:40:00 05/31/2018 14:10:00 DIS Inpatient APOLINAR KIRK DO [facility] 4TH LABLIE BP, A-FIB [id number] 05/29/2018 16:26:00 05/29/2018 23:59:59 CLS Preadmit AQUILES BALBUENA, NOBLE Carlson LUMBAR RADICULOPATHY, NEUROGENIC CLAUDICATION [id number] 05/02/2014 06:00:00 05/03/2014 10:42:00 DIS Inpatient LYDIA WOOD DO [facility] SURGICAL CERVICAL STENOSIS [id number] 04/18/2014 09:12:00 04/18/2014 23:59:59 CLS Outpatient LYDIA WOOD DO [facility] PREOP CERVICAL STEONSIS [id number] 09/27/2018 16:20:00 ACT Emergency ADOLPH BALBUENA, MARTY Crook [facility] ER FS PT HAS HIVES ON CHEST
[2018-09-27] MEDS ORDERED: methylPREDNISolone 125 MG (Solu-MEDROL) VIAL IM ONE (16:30)
--- NOTE | 2018-09-27 16:31 | ED Integumentary General ---
General Stated Complaint: PT HAS HIVES ON CHEST Source: patient, family Exam Limitations: no limitations History of Present Illness Date Seen by Provider: Sep 27, 2018 Time Seen by Provider: 16:26 Initial Comments This 68-year-old white female presents with a contact dermatitis from using tape to her anterior chest from her recent surgical procedure. Patient has had a similar reaction following neck surgery in the past. Fortunately the patient denies shortness of breath or diffuse urticaria. She's had no difficulty swallowing. She denies a fullness in her throat. Allergies and Home Medications Allergies Uncoded Allergies: PAIN MEDICATION (Adverse Reaction, Unknown, SIDE EFFECTS FROM PAIN MEDICATIONS, 04/18/14) Home Medications Alprazolam 0.25 Mg Tablet, 0.25 MG PO TID PRN for ANXIETY, (Reported) Cetirizine HCl 10 Mg Tablet, 10 MG PO BID, (Reported) Cyanocobalamin (Vitamin B-12) 2,500 Mcg Tab.chew, 2,500 MCG PO DAILY, (Reported) Diltiazem HCl 180 Mg Tab.er.24h, 180 MG PO DAILY, (Reported) Gabapentin 300 Mg Capsule, 600 MG PO HS, (Reported) TAKES 2 (300MG) CAPSULES Metoprolol Tartrate 25 Mg Tablet, 25 MG PO BID, (Reported) Naloxone HCl 4 Mg [place], NS UD PRN for OPIOID SIDE EFFECTS, (Reported) Omeprazole 20 Mg Tablet.dr, 20 MG PO DAILY PRN for HEARTBURN, (Reported) Pramipexole Di-HCl 1 Mg Tablet, 1 MG PO 1900, (Reported) Rivaroxaban 20 Mg Tablet, 20 MG PO 1800, (Reported) Sennosides/Docusate Sodium 1 Each Tablet, 2 TAB PO HS, (Reported) Tapentadol HCl 100 Mg Tablet, 100 MG PO TID, (Reported) Temazepam 30 Mg Capsule, 30 MG PO HS, (Reported) Tizanidine HCl 6 Mg Capsule, 6 MG PO HS, (Reported) Patient Home Medication List Home Medication List Reviewed: Yes Review of Systems Review of Systems Constitutional: No chills, No fever EENTM: No hearing loss, No vision loss Respiratory: No cough, No short of breath Cardiovascular: No chest pain Gastrointestinal: No abdominal pain, No nausea, No vomiting Genitourinary: no symptoms reported Musculoskeletal: no symptoms reported Skin: other (contact dermatitis to the anterior chest consisting of erythematous coalescing lesions approximately 3-4 mm in diameter. The area is relatively well contained to the anterior chest wall.) Psychiatric/Neurological: No Symptoms Reported Endocrine: No Symptoms Reported Hematologic/Lymphatic: No Symptoms Reported Past Stkudsb-Xvleyb-Ccywvd Hx Past Med/Social Hx: Reviewed Nursing Past Med/Soc Hx Patient Social History 2nd Hand Smoke Exposure: No Recent Foreign Travel: No (N) Contact w/Someone Who Travel: No (N) Immunizations Up To Date Date of Pneumonia Vaccine: Mar 06, 2016 Date of Influenza Vaccine: Feb 21, 2018 Past Medical History Orthopedic Respiratory: No Cardiac: Yes Atrial Fibrillation, Hypertension, Palpitations Neurological: Yes (seizures as child) Neuropathy Genitourinary: No Gastrointestinal: No Arthritis Cancer: No Anxiety Blood Disorders: No Family Medical History Cardiovascular disease 19 FATHER Colon cancer 19 MOTHER Diabetes mellitus G8 BROTHER FH: prostate cancer 19 FATHER Hypertension 19 MOTHER Physical Exam Vital Signs Capillary Refill : General Appearance: WD/WN, no apparent distress HEENT: normal ENT inspection Neck: normal inspection Cardiovascular: regular rate, rhythm Respiratory: lungs clear; No decreased breath sounds, No wheezing Gastrointestinal: normal bowel sounds, soft Back: normal inspection Extremities: normal range of motion Neurologic/Psychiatric: no motor/sensory deficits, alert, normal mood/affect Skin: other (there is an erythematous cold dressing contact dermatitis over the anterior chest wall consisting of 3 mm erythematous lesions.) Skin Problem Location: torso Skin Problem Character: erythema Progress/Results/Core Measures Results/Orders My Orders Orders - MARTY FARFAN MD Methylprednisolone Sod Succ (Solu-Medrol (09/27/18 16:30) Progress Progress Note : Time: 16:32 Progress Note Patient was given 125 mg Solu-Medrol IM. I prescribed triamcinolone topically to the contact dermatitis to 3 times a day. I recommended that she also employed at [employer] for the next few days. Departure Impression Primary Impression: Contact dermatitis Qualified Codes: L23.1 - Allergic contact dermatitis due to adhesives Disposition: HOME, SELF-CARE Condition: Improved Departure-Patient Inst. Decision time for Depature: 16:33 Referrals: NIA NEWTON MD (PCP/Family) Primary Care Physician Patient Instructions: Contact Dermatitis (DC) Add. Discharge Instructions: Pepcid and triamcinolone as prescribed. Close follow-up with your doctor on Friday if not significantly improved. Return if any problems or questions. MARTY FARFAN MD Sep 27, 2018 16:31
[2018-09-27 16:36] VITALS: BP 130/77
== END 2018-09-27 16:44 | disposition home or self-care (01) ==
LOC: EDUNIT# 16:18 → ER FS 16:20
DX: L23.9 Allergic contact dermatitis, unspecified cause (principal); I48.91 Unspecified atrial fibrillation; I10 Essential (primary) hypertension; F41.9 Anxiety disorder, unspecified; Z82.49 Family history of ischemic heart disease and other diseases of the circulatory system; Z79.01 Long term (current) use of anticoagulants; Z88.8 Allergy status to other drugs, medicaments and biological substances
CPT/HCPCS: 99284

== ENCOUNTER 2019-04-24 12:38 | Emergency (ER) | payer MEDICARE, OTHER ==
[~2019-04-24] VITALS: Ht 160.3 cm; Wt 75.1 kg
[~2019-04-24 12:38] MED LIST changes: +OMEP40CA27 PO; -OMEP40CA36 PO
--- NOTE | 2019-04-24 13:27 | ED Lower Extremity ---
General Chief Complaint: Lower Extremity Stated Complaint: LT KNEE PAIN Nursing Triage Note: Patient reports she has had three left total knee replacements, most recently in [address] She states she had been doing well until one week ago, when she began having pain in the back of her left knee. She states she saw her pcp yesterday, planned to follow up with [address], but states the pain became severe last night so she came to the ED for evaluation. She states she has been taking Nucynta every 6 hours for pain without relief. Nursing Sepsis Screen: No Definite Risk Source: patient, family Exam Limitations: no limitations History of Present Illness Date Seen by Provider: Apr 24, 2019 Time Seen by Provider: 13:22 Initial Comments The patient is a near 6-year-old white female who presents with complaints of pain over the posterior aspect of her left knee. She states that she has had 3 total knee replacements on that knee. The initial surgery was followed rather immediately by the second surgery as there was a prosthesis failure. She then had a third process performed at [address] in [address]. The present prosthesis has functioned rather well. On 2 days ago she began to experience some pain behind the left knee. This has increased. She states that there has been no increase in her usual activities. Her interjects that she is very sedentary. He states that yesterday she went to see Dr. maier and had walked a distance to the office from the parking lot. She later went to [facility] and walked well more than her usual. She reports increasing pain today and a feeling of tightness in the posterior knee area. There has been no redness Onset: last week Pain/Injury Location: left knee Method of Injury: unknown Allergies and Home Medications Allergies Coded Allergies: adhesive tape (Verified Allergy, Unknown, 04/24/19) metoclopramide (Verified Allergy, Unknown, 04/24/19) ondansetron (Unverified Adverse Reaction, Unknown, nausea and vomiting, 04/24/19) Uncoded Allergies: PAIN MEDICATION (Adverse Reaction, Unknown, SIDE EFFECTS FROM PAIN MEDICATIONS, 04/18/14) Home Medications Alprazolam 0.25 Mg Tablet, 0.25 MG PO TID PRN for ANXIETY, (Reported) Cetirizine HCl 10 Mg Tablet, 10 MG PO BID, (Reported) Cyanocobalamin (Vitamin B-12) 2,500 Mcg Tab.chew, 2,500 MCG PO DAILY, (Reported) Diltiazem HCl 180 Mg Tab.er.24h, 180 MG PO DAILY, (Reported) Gabapentin 300 Mg Capsule, 600 MG PO HS, (Reported) TAKES 2 (300MG) CAPSULES Metoprolol Tartrate 25 Mg Tablet, 25 MG PO BID, (Reported) Naloxone HCl 4 Mg [place], NS UD PRN for OPIOID SIDE EFFECTS, (Reported) Omeprazole 20 Mg Tablet.dr, 20 MG PO DAILY PRN for HEARTBURN, (Reported) Pramipexole Di-HCl 1 Mg Tablet, 1 MG PO 1900, (Reported) Rivaroxaban 20 Mg Tablet, 20 MG PO 1800, (Reported) Sennosides/Docusate Sodium 1 Each Tablet, 2 TAB PO HS, (Reported) Tapentadol HCl 100 Mg Tablet, 100 MG PO TID, (Reported) Temazepam 30 Mg Capsule, 30 MG PO HS, (Reported) Tizanidine HCl 6 Mg Capsule, 6 MG PO HS, (Reported) Patient Home Medication List Home Medication List Reviewed: Yes Review of Systems Constitutional: see HPI EENTM: no symptoms reported Respiratory: no symptoms reported Cardiovascular: Hx of Intervention, palpitations Gastrointestinal: no symptoms reported Musculoskeletal: see HPI, joint pain Skin: no symptoms reported Psychiatric/Neurological: No Symptoms Reported Past Cctkgxm-Tqexop-Ugbcxu Hx Patient Social History Alcohol Use: Denies Use Recreational Drug Use: No Smoking Status: Never a Smoker 2nd Hand Smoke Exposure: No Recent Foreign Travel: No Contact w/Someone Who Travel: No Recent Infectious Disease Expo: No Recent Hopitalizations: No Physical Abuse: No Sexual Abuse: No Mistreated: No Fear: No Immunizations Up To Date Date of Pneumonia Vaccine: Mar 06, 2016 Date of Influenza Vaccine: Feb 21, 2018 Seasonal Allergies Seasonal Allergies: No Past Medical History Surgeries: Yes (LUMBAR SURGERY, LEFT KNEE SURGERY x 3, NECK SURGERY X5) Orthopedic Respiratory: No Cardiac: Yes Atrial Fibrillation, Hypertension, Palpitations Neurological: Yes (seizures as child) Neuropathy [employer]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 1.6oz. 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 The bony left knee appears larger than the right. There are no pops or crepitus noted to passive range of motion. There appears to be some nonspecific fullness in the popliteal space. No redness or warmth is noted. She reports some increase in pain to full extension. Progress/Results/Core Measures Results/Orders My Orders Orders - DEEDEE MONTOYA MD Knee 3 View Left (04/24/19 13:15) Vital Signs/I&O 04/24/19 12:40 Temp 35.5 Pulse 67 Resp 16 B/P (MAP) 124/75 (91) Pulse Ox 94 O2 Delivery Room Air Blood Pressure Mean: 91 POS Departure Communication (Admissions) 1401 plain films of the left knee showed no evidence of fracture or other bony abnormality. Impression Primary Impression: pain left knee popliteal Disposition: 01 HOME, SELF-CARE Condition: Stable/Unchanged Departure-Patient Inst. Referrals: NIA MAIER MD (PCP/Family) Primary Care Physician Add. Discharge Instructions: All discharge instructions reviewed with patient and/or family. Voiced understanding. Keep appointment with ortho 4 states. Leave knee immobilizer in place except for bathing. Use ice pack 3 or 4 times daily. DEEDEE MONTOYA MD Apr 24, 2019 13:27 POS
--- NOTE | 2019-04-24 13:47 | Diagnostic Imaging Report ---
INDICATION: Left knee pain, arthroplasty COMPARISON: None. FINDINGS: 4 views of the left knee demonstrate a well seated arthroplasty without fracture or loosening. There is no joint effusion or unexpected foreign body. IMPRESSION: Well seen left knee arthroplasty without fracture. Dictated by: Dictated on workstation # [id number]
[2019-04-24 14:05] VITALS: BP 124/75
--- OUTSIDE RECORDS SUMMARY | 2019-05-17 23:26 | XMS REPORT | Encounter Summary ---
Author Author [facility] POS Organization [facility] SP Address Unknown SP Phone Unavailable SP Care Team Providers Care Energy Technician Name Role Phone POS Manoj Yeager MD PCP SP Reason for Referral * Radiology Services (Routine) Referred By Contact Referred To Contact POS Status Reason Specialty Diagnoses / SP Procedures SP SP Jacob Baker MD [address] [facility] [address] [place] [address] SP New Request Diagnoses SP Pancreas cyst SP P SP rocedures SP MRI ABD WO/W SP CONTRAST SP Encounter Details Care Team Description POS Date Type Department SP SP Sherie Ochoa RN Pancreas cyst (Primary Dx) SP 02/16/2019 Orders Only [facility] SP [address] [address] SP [phone] SP Social History Date POS Tobacco Use Types Packs/Day Years Used SP SP Never Smoker SP Drinks/Week oz/Week Comments POS Alcohol Use SP SP 0 Standard drinks or equivalent 0.0 SP No SP Sex Assigned at Date Recorded SP Not on file SP Industry POS Job Start Date Occupation SP Not on file SP Not on file Not on file SP Travel End POS Travel History Travel Start SP No recent travel history available. SP documented as of this encounter Functional Status Date of Assessment POS Functional Status Response SP 09/05/2016 SP Does the patient have a hearing impairment: No SP 09/05/2016 SP Does the patient have a visual impairment: Yes SP 09/05/2016 SP Does the patient have impaired ambulation: No SP 09/05/2016 SP Does the patient have an activity of daily living No SP (ADL) impairment: SP 09/05/2016 SP Does the patient have an instrumental activity of No SP daily living (IADL) impairment: SP Date of Assessment POS Cognitive Status Response SP 09/05/2016 SP Does the patient have a cognitive impairment: No SP documented as of this encounter Plan of Treatment Order Schedule POS Name Type Priority Associated Diag noses SP Expected: 02/16/2019 (Approximate), Expi res: 02/16/2020 SP MRI ABD WO/W CONTRAST Imaging Routine Pancreas cyst SP documented as of this encounter Visit Diagnoses Diagnosis POS Pancreas cyst - Primary SP Cyst and pseudocyst of pancreas SP documented in this encounter
--- OUTSIDE RECORDS SUMMARY | 2019-05-17 23:26 | XMS REPORT | Encounter Summary ---
Author Author [facility] POS Organization [facility] SP Address Unknown SP Phone Unavailable SP Care Team Providers Care First Front Ventilator Name Role Phone POS Manoj Yeager MD PCP SP Reason for Visit * Reason Comments POS Other external MRI appt SP Encounter Details Care Team Description POS Date Type Department SP SP Jacob Baker MD [address] [place] [address] [phone] Other (external MRI appt) SP 02/19/2019 Telephone [facility] SP [address] [address] SP [phone] SP Social History Date POS Tobacco Use [...] No SP documented as of this encounter Miscellaneous Notes * Telephone Encounter - Eleanor Ochoa RN - 03/12/2019 10:44 AM CDT Attempted to contact pt re: MRI report. No answer, left voicemail. 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 [address] clinic side, no jewerly. to reschedule if needed Patient provided all information, v/u and confirmed appointment. Routing note to PR to obtain creatinine orders to fax with MRI order. documented in this encounter Plan of Treatment Order Schedule POS Name Type Priority Associated Diag noses SP Expected: 02/26/2019 (Approximate), Expi res: 03/25/2019 SP CREATININE Lab Routine Pancreas cyst SP Healthcare maintenance SP documented as of this encounter Visit Diagnoses Diagnosis POS Pancreas cyst - Primary SP Cyst and pseudocyst of pancreas SP Healthcare maintenance SP Routine general medical examination at a health care facility SP documented in this encounter
--- OUTSIDE RECORDS SUMMARY | 2019-05-17 23:26 | XMS REPORT | Clinical Summary ---
Author Author [facility] POS Organization [facility] SP Address Unknown SP Phone Unavailable SP Care Team Providers Care Steel Sampler Name Role Phone POS Manoj Yeager MD PCP SP Source Comments Some departments are not documenting in the electronic medical record. If you d o not see the information that you expected, contact Release of Information in [facility] [employer] Information Management department at [phone] for further assistan ce in locating additional records.[facility] Allergies Comments POS Active Allergy Reactions Severity Noted Date SP SP Adhesive Tape (Rosins) RASH Medium 017 SP SP Latex RASH Medium 09/05/2016 SP SP Opium VOMITING, High 09/05/2016 SP HALLUCINATION SP S SP Medications End Date Status POS Medication Sig Dispensed Refills Start SP Date SP Active SP diltiazem CD (CARDIZEM Take 180 mg 0 SP CD) 180 mg capsule by mouth SP daily. SP Active SP pramipexole (MIRAPEX) 1 Take 1 mg by 0 SP mg tablet mouth at SP bedtime SP daily. SP Active SP tiZANidine (ZANAFLEX) 6 Take 12 mg by 0 SP mg capsule mouth at SP bedtime SP daily. SP Active SP gabapentin (NEURONTIN) Take 300 mg 0 SP 300 mg capsule by mouth SP twice daily. SP Active SP traMADol (ULTRAM) 50 mg Take 50 mg by 0 SP tablet mouth every 6 SP hours as SP needed for SP Pain. SP Active SP temazepam (RESTORIL) 30 Take 30 mg by 0 SP mg capsule mouth at SP bedtime as SP needed. SP Active SP tapentadol(+) (NUCYNTA) Take 100 mg 0 SP 100 mg tablet by mouth SP every 4 hours SP as needed SP Active SP ALPRAZolam (XANAX) 0.25 Take 0.25 mg 0 SP mg tablet by mouth at SP bedtime as SP needed for SP Anxiety. SP Active SP cetirizine (ZYRTEC) 10 mg Take 10 mg by 0 SP tablet mouth every SP morning. SP Active SP senna/docusate Take 1 Tab by 0 SP (SENOKOT-S) 8.6/50 mg mouth daily. SP tablet SP Active SP cholecalciferol (VITAMIN Take 400 0 SP D-3) 400 unit tab Units by SP mouth daily. SP Active SP other medication Take 1 Dose 0 SP by mouth SP once. SP Medication SP Name & SP Strength: SP women's 50+ SP Dose(how SP many): once a SP day SP Frequency(how SP often):once a SP day SP Active Problems Not on file Encounters Care Team Description POS Date Type Specialty SP Jacob Ribeiro MD Results (MRI) SP 03/12/2019 Telephone Transplant Surgery SP Jacob Ribeiro MD Records Request (mri ) SP 03/10/2019 Telephone Transplant Surgery SP SP 02/26/2019 Hospital Radiology SP Encounter SP Jacob Ribeiro MD Other (external MRI appt) SP 02/19/2019 Telephone Transplant Surgery SP Sherie Tejada, RN Pancreas cyst (Primary Dx) SP 02/16/2019 Orders Only Transplant Surgery SP from Last 3 Months Family History Medical History Relation Name Comments POS Cancer-Prostate Father SP Cancer-Colon Mother SP Relation Name Status Comments SP Father SP Mother SP Social History Date POS Tobacco Use [...] SP No recent travel history available. SP Last Filed Vital Signs Reading Time Taken Comments POS Vital Sign SP 126/66 09/05/2016 9:11 AM CDT SP Blood Pressure SP 63 09/05/2016 9:11 AM CDT SP Pulse SP 36.7 C (98.1 F) 09/05/2016 9:11 AM CDT SP Temperature SP - - SP Respiratory Rate SP 98% 09/05/2016 9:11 AM CDT SP Oxygen Saturation SP - - SP Inhaled Oxygen SP Concentration SP 60.6 kg (133 lb 11.2 oz) 09/05/2016 9:11 AM CDT SP Weight SP 160 cm (5' 3") 09/05/2016 9:11 AM CDT SP Height SP 23.68 09/05/2016 9:11 AM CDT SP Body Mass Index SP Plan of Treatment Health Maintenance Due Date Last Done Comments POS HEPATITIS C SCREENING 1949 SP MEDICARE ANNUAL WELLNESS 1949 SP VISIT SP DTAP/TDAP VACCINES (1 - 1967 SP Tdap) SP PHYSICAL (COMPREHENSIVE) 1967 SP EXAM SP BREAST CANCER SCREENING 1989 SP COLORECTAL CANCER 1999 SP SCREENING SP SHINGLES RECOMBINANT 1999 SP VACCINE (1 of 2) SP OSTEOPOROSIS 2014 SP SCREENING/MONITORING SP PNEUMONIA (PCV13/PPSV23) 2014 SP VACCINES (1 of 2 - PCV13) SP INFLUENZA VACCINE 01/21/2019 SP Procedures Comments POS Procedure Name Priority Date/Time Associated Diag nosis SP SP MRI ABDOMEN EXTERNAL Routine 02/26/2019 SP IMAGING 12:00 AM CDT SP from Last 3 Months Results * MRI ABDOMEN EXTERNAL IMAGING (02/26/2019 12:00 AM CDT) Specimen POS Narrative Performed At SP This order has been auto finalized and does not contain a result. 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
--- OUTSIDE RECORDS SUMMARY | 2019-05-17 23:26 | XMS REPORT | Encounter Summary ---
Author Author [facility] POS Organization [facility] SP Address Unknown SP Phone Unavailable SP Care Team Providers Care Cement Rubber Name Role Phone POS Manoj Yeager MD PCP SP Reason for Visit * Reason Comments POS Results MRI SP Encounter Details Care Team Description POS Date Type Department SP SP Jacob Baker MD [address] [place] [address] [phone] Results (MRI) SP 03/12/2019 Telephone [facility] SP [address] [address] SP [phone] SP Social History Date POS Tobacco Use [...] encounter Miscellaneous Notes * Telephone Encounter - Sherie Ochoa RN - 03/12/2019 3:11 PM CDT Reviewed MRI report with pt, informed of recommendation to repeat in 1 year. * Telephone Encounter - Jessy Brock - 03/12/2019 1:53 PM CDT Pt left VM wanting to know her MRI results. documented in this encounter Plan of Treatment Not on filedocumented as of this encounter Visit Diagnoses Not on filedocumented in this encounter
--- OUTSIDE RECORDS SUMMARY | 2019-05-17 23:26 | XMS REPORT | Encounter Summary ---
Author Author [facility] POS Organization [facility] SP Address Unknown SP Phone Unavailable SP Care Team Providers Care Supervisor Type Disk Quality Control Name Role Phone POS Manoj Yeager MD PCP SP Encounter Details Care Team Description POS Date Type Department SP SP 02/26/2019 [facility] SP Encounter Health System SP [address] [place] [address] SP [phone] SP Social History Date POS Tobacco Use [...] No SP documented as of this encounter Medications at Time of Discharge Start Date End Date POS Medication Sig Dispensed Refills SP SP ALPRAZolam (XANAX) 0.25 Take 0.25 mg 0 SP mg tablet by mouth at SP bedtime as SP needed for SP Anxiety. SP SP cetirizine (ZYRTEC) 10 mg Take 10 mg by 0 SP tablet mouth every SP morning. SP SP cholecalciferol (VITAMIN Take 400 0 SP D-3) 400 unit tab Units by SP mouth daily. SP SP diltiazem CD (CARDIZEM Take 180 mg 0 SP CD) 180 mg capsule by mouth SP daily. SP SP gabapentin (NEURONTIN) Take 300 mg 0 SP 300 mg capsule by mouth SP twice daily. SP SP other medication Take 1 Dose 0 SP by mouth SP once. SP Medication SP Name & SP Strength: SP women's 50+ SP Dose(how SP many): once a SP day SP Frequency(how SP often):once a SP day SP SP pramipexole (MIRAPEX) 1 Take 1 mg by 0 SP mg tablet mouth at SP bedtime SP daily. SP SP senna/docusate Take 1 Tab by 0 SP (SENOKOT-S) 8.6/50 mg mouth daily. SP tablet SP SP tapentadol(+) (NUCYNTA) Take 100 mg 0 SP 100 mg tablet by mouth SP every 4 hours SP as needed SP SP temazepam (RESTORIL) 30 Take 30 mg by 0 SP mg capsule mouth at SP bedtime as SP needed. SP SP tiZANidine (ZANAFLEX) 6 Take 12 mg by 0 SP mg capsule mouth at SP bedtime SP daily. SP SP traMADol (ULTRAM) 50 mg Take 50 mg by 0 SP tablet mouth every 6 SP hours as SP needed for SP Pain. SP documented as of this encounter Plan of Treatment Not on filedocumented as of this encounter Procedures Comments POS Procedure Name Priority Date/Time Associated Diag shelby JAQUEZ SP MRI ABDOMEN EXTERNAL Routine 02/26/2019 SP IMAGING 12:00 AM CDT SP documented in this encounter Results * MRI ABDOMEN EXTERNAL IMAGING (02/26/2019 12:00 AM CDT) Specimen POS Narrative Performed At SP This order has been auto finalized and does not contain a result. SP documented in this encounter Visit Diagnoses Not on filedocumented in this encounter
--- OUTSIDE RECORDS SUMMARY | 2019-05-17 23:26 | XMS REPORT | Encounter Summary ---
Author Author [facility] POS Organization [facility] SP Address Unknown SP Phone Unavailable SP Care Team Providers Care Clean Room Assembler Name Role Phone POS Manoj Yeager MD PCP SP Reason for Visit * Reason Comments POS Records Request mri SP Encounter Details Care Team Description POS Date Type Department SP SP Jacob Baker MD [address] [address] [phone] Records Request (mri ) SP 03/10/2019 Telephone [facility] SP [address] [address] SP [phone] SP Social History Date POS Tobacco Use [...] * Telephone Encounter - Shannan Mcfadden - 03/10/2019 1:32 PM CDT F/u call regarding request for mri per Whit ca) states sent on 03/05 advised we have not received images or report. Will have head person resend via [place]. documented in this encounter Plan of Treatment Not on filedocumented as of this encounter Visit Diagnoses Not on filedocumented in this encounter
--- OUTSIDE RECORDS SUMMARY | 2019-05-17 23:28 | XMS REPORT | Continuity of Care Document ---
Author Organization Unknown POS Address Unknown SP Phone Unavailable SP Allergies Active Description Code Type Severity POS Reaction Onset Reported/Identified POS to Patient Clinical Status POS Yes PAIN MEDICATION PAIN MEDICATION SP SIDE EFFECTS FR 04/18/2014 SP SP Yes adhesive tape [id number] Andres g Allergy SP Unknown N/A 04/24/2019 SP Yes metoclopramide [id number] Dr ug Allergy SP Unknown N/A 04/24/2019 SP SP Yes ondansetron [id number] Drug Aller gy SP nausea and vomi 04/24/2019 SP SP Medications There is no data. Problems Date Dx Coded Attending Type Code POS Diagnosed By POS 05/03/2014 LYDIA WOOD DO Ot 311 SP DISORDER NEC SP 05/03/2014 LYDIA WOOD DO Ot 723 .0 SP SPINAL STENOSIS SP 05/06/2014 LYDIA WOOD DO Ot 723 .0 SP SP 05/06/2014 LYDIA WOOD DO Ot V72.63 SP SP 05/06/2014 LYDIA WOOD DO Ot V74 .8 SP SP 05/27/2018 LYDIA WOOD DO Ot 723 .0 SP SPINAL STENOSIS SP 05/27/2018 LYDIA WOOD DO Ot V72.63 SP PRE-PROCEDURAL LABORATORY EXAMINATION SP 05/27/2018 LYDIA WOOD DO Ot V74 .8 SPBACTERIAL DIS NEC SP 05/28/2018 LYDIA WOOD DO Ot 723 .0 SP SPINAL STENOSIS SP 05/28/2018 LYDIA WOOD DO Ot V72.63 SP PRE-PROCEDURAL LABORATORY EXAMINATION SP 05/28/2018 LYDIA WOOD DO Ot V74 .8 SPBACTERIAL DIS NEC SP 05/31/2018 CARY KIRK DOI Ot D64.9 SP UNSPECIFIED SP 05/31/2018 CARY KIRK DOI Ot E83.41 SP SP 05/31/2018 CARY KIRK DOI Ot F32.9 SP DEPRESSIVE DISORDER, SINGLE EPISOD SP 05/31/2018 KIRK DO, APOLINAR Ot F41.9 SP DISORDER, UNSPECIFIED SP 05/31/2018 KIRK DO, APOLINAR Ot G62.9 SP UNSPECIFIED SP 05/31/2018 KIRK DO, APOLINAR Ot I10 SP (PRIMARY) HYPERTENSION SP 05/31/2018 KIRK DO, APOLINAR Ot I48.0 SP ATRIAL FIBRILLATION SP 05/31/2018 KIRK DO, APOLINAR Ot I49.1 SP PREMATURE DEPOLARIZATION SP 05/31/2018 KIRK DO, APOLINAR Ot I49.3 SP PREMATURE DEPOLARIZATION SP 05/31/2018 KIRK DO, APOLINAR Ot I49.5 SP SINUS SYNDROME SP 05/31/2018 KIRK DO, APOLINAR Ot I95.1 SP HYPOTENSION SP 05/31/2018 KIRK DO, APOLINAR Ot J98.11 SP SP 05/31/2018 KIRK DO, APOLINAR Ot M19.90 SP OSTEOARTHRITIS, UNSPECIFIED SP 05/31/2018 KIRK DO, APOLINAR Ot R11.2 SP WITH VOMITING, UNSPECIFIED SP 05/31/2018 KIRK DO, APOLINAR Ot Z98.1 SP STATUS SP 08/07/2018 ROBIN BALBUENA, Reagan CAMPOS Ot G47.33 SP OBSTRUCTIVE SLEEP APNEA (ADULT) (PEDIATR SP 08/26/2018 GLENNA BALBUENA, DENISE Hernandez Ot G47.33 SP OBSTRUCTIVE SLEEP APNEA (ADULT) (PEDIATR SP 09/01/2018 ROBIN BALBUENA, Reagan CAMPOS Ot I49 .5 SP SINUS SYNDROME SP 09/01/2018 ROBIN BALBUENA, Reagan CAMPOS Ot G47.00 SP INSOMNIA, UNSPECIFIED SP 09/01/2018 ROBIN BALBUENA, Reagan CAMPOS Ot G47.61 SP PERIODIC LIMB MOVEMENT DISORDER SP 09/01/2018 Reagan KELLY MD Ot I48 .0 SP ATRIAL FIBRILLATION SP 09/01/2018 ROBIN BALBUENA, Reagan CAMPOS Ot I49 .1 SP PREMATURE DEPOLARIZATION SP 09/01/2018 ROBIN BALBUENA, Reagan CAMPOS Ot I49 .5 SP SINUS SYNDROME SP 09/01/2018 GLENNA BALBUENA, DENISE Hernandez Ot G47.33 SP OBSTRUCTIVE SLEEP APNEA (ADULT) (PEDIATR SP 09/03/2018 ROBIN BALBUENA, Reagan CAMPOS Ot G47.00 SP INSOMNIA, UNSPECIFIED SP 09/03/2018 Reagan KELLY MD Ot G47.61 SP PERIODIC LIMB MOVEMENT DISORDER SP 09/03/2018 ROBIN BALBUENA, Reagan CAMPOS Ot I48 .0 SP ATRIAL FIBRILLATION SP 09/03/2018 ROBIN BALBUENA, Reagan CAMPOS Ot I49 .1 SP PREMATURE DEPOLARIZATION SP 09/03/2018 ROBIN BALBUENA, Reagan CAMOPS Ot I49 .5 SP SINUS SYNDROME SP 09/07/2018 ROBIN BALBUENA, Reagan CAMPOS Ot I10 SP (PRIMARY) HYPERTENSION SP 09/07/2018 ROBIN BALBUENA, Reagan CAMPOS Ot I48 .0 SP ATRIAL FIBRILLATION SP 09/07/2018 Reagan KELLY MD Ot I49 .1 SP PREMATURE DEPOLARIZATION SP 09/07/2018 Reagan KELLY MD Ot I49 .5 SP SINUS SYNDROME SP 09/22/2018 LYDIA WOOD DO Ot 723 .0 SP SPINAL STENOSIS SP 09/22/2018 LYDIA WOOD DO Ot V72.63 SP PRE-PROCEDURAL LABORATORY EXAMINATION SP 09/22/2018 LYDIA WOOD DO Ot V74 .8 SPBACTERIAL DIS NEC SP 09/22/2018 Reagan KELLY MD Ot G47.00 SP INSOMNIA, UNSPECIFIED SP 09/22/2018 Reagan KELLY MD Ot G47.61 SP PERIODIC LIMB MOVEMENT DISORDER SP 09/22/2018 Reagan KELLY MD Ot I48 .0 SP ATRIAL FIBRILLATION SP 09/22/2018 Reagan KELLY MD Ot I49 .1 SP PREMATURE DEPOLARIZATION SP 09/22/2018 Reagan KELLY MD Ot I49 .5 SP SINUS SYNDROME SP 09/22/2018 Reagan KELLY MD Ot I10 SP (PRIMARY) HYPERTENSION SP 09/22/2018 Reagan KELLY MD Ot I48 .0 SP ATRIAL FIBRILLATION SP 09/22/2018 Reagan KELLY MD Ot I49 .1 SP PREMATURE DEPOLARIZATION SP 09/22/2018 Reagan KELLY MD Ot I49 .5 SP SINUS SYNDROME SP 09/22/2018 DENISE MANZANARES MD Ot G47.33 SP OBSTRUCTIVE SLEEP APNEA (ADULT) (PEDIATR SP 09/23/2018 ROBIN BALBUENA, Reagan CAMPOS Ot I10 SP (PRIMARY) HYPERTENSION SP 09/23/2018 ROBIN BALBUENA, Reagan CAMPOS Ot I48 .0 SP ATRIAL FIBRILLATION SP 09/23/2018 ROBIN BALBUENA, Reagan CAMPOS Ot I49 .1 SP PREMATURE DEPOLARIZATION SP 09/23/2018 ROBIN BALBUENA, Reagan CAMPOS Ot I49 .5 SP SINUS SYNDROME SP 09/24/2018 ROBIN BALBUENA, Reagan CAMPOS Ot I10 SP (PRIMARY) HYPERTENSION SP 09/24/2018 ROBIN BALBUENA, Reagan CAMPOS Ot I48 .0 SP ATRIAL FIBRILLATION SP 09/24/2018 ROBIN BALBUENA, Reagan CAMPOS Ot I49 .1 SP PREMATURE DEPOLARIZATION SP 09/24/2018 Reagan KELLY MD Ot I49 .5 SP SINUS SYNDROME SP 09/24/2018 Reagan KELLY MD Ot R94.39 SP ABNORMAL RESULT OF OTHER CARDIOVASCULAR SP 09/24/2018 Reagan KELLY MD Ot Z79.01 SP FULFILLMENT REPRESENTATIVE (CURRENT) USE OF ANTICOAGULANT SP 09/24/2018 Reagan KELLY MD Ot Z79.899 SP OTHER FULFILLMENT REPRESENTATIVE (CURRENT) DRUG THERAPY SP 09/24/2018 Reagan KELLY MD Ot Z96.652 SP PRESENCE OF LEFT ARTIFICIAL KNEE JOINT SP 09/27/2018 Reagan KELLY MD Ot I10 SP (PRIMARY) HYPERTENSION SP 09/27/2018 Reagan KELLY MD Ot I48 .0 SP ATRIAL FIBRILLATION SP 09/27/2018 Reagan KELLY MD Ot I49 .1 SP PREMATURE DEPOLARIZATION SP 09/27/2018 Reagan KELLY MD Ot I49 .5 SP SINUS SYNDROME SP 09/27/2018 Reagan KELLY MD Ot R94.39 SP ABNORMAL RESULT OF OTHER CARDIOVASCULAR SP 09/27/2018 Reagan KELLY MD Ot Z79.01 SP FULFILLMENT REPRESENTATIVE (CURRENT) USE OF ANTICOAGULANT SP 09/27/2018 Reagan KELLY MD Ot Z79.899 SP OTHER FULFILLMENT REPRESENTATIVE (CURRENT) DRUG THERAPY SP 09/27/2018 ROBIN BALBUENA, Reagan CAMPOS Ot Z96.652 SP PRESENCE OF LEFT ARTIFICIAL KNEE JOINT SP 09/27/2018 ADOLPH BALBUENA, MARTY Crook Ot F41. 9 SP DISORDER, UNSPECIFIED SP 09/27/2018 ADOLPH BALBUENA, MARTY Crook Ot I10 SP (PRIMARY) HYPERTENSION SP 09/27/2018 ADOLPH BALBUENA, MARTY Crook Ot I48. 91 SP ATRIAL FIBRILLATION SP 09/27/2018 ADOLPH BALBUENA, MARTY Crook Ot L23. 9 SP CONTACT DERMATITIS, UNSPECIFIED SP 09/27/2018 ADOLPH BALBUENA, MARTY Crook Ot Z79. 01 SP TERM (CURRENT) USE OF ANTICOAGULANT SP 09/27/2018 ADOLPH BALBUENA, MARTY Crook Ot Z82. 49 SP HX OF ISCHEM HEART DIS AND OTH DI SP 09/27/2018 ADOLPH BALBUENA, MARTY Crook Ot Z88. 8 SP STATUS TO OTH DRUG/MEDS/BIOL SUB SP 09/29/2018 ROBIN BALBUENA, Reagan CAMPOS Ot I10 SP (PRIMARY) HYPERTENSION SP 09/29/2018 ROBIN BALBUENA, M ANDRES Ot I48 .0 SP ATRIAL FIBRILLATION SP 09/29/2018 ROBIN BALBUENA, M ANDRES Ot I49 .1 SP PREMATURE DEPOLARIZATION SP 09/29/2018 ROBIN BALBUENA, M ANDRES Ot I49 .5 SP SINUS SYNDROME SP 09/29/2018 ROBIN BALBUENA, M ANDRES Ot R94.39 SP ABNORMAL RESULT OF OTHER CARDIOVASCULAR SP 09/29/2018 ROBIN BALBUENA, M ANDRES Ot Z79.01 SP CORRECTION (CURRENT) USE OF ANTICOAGULANT SP 09/29/2018 ROBIN BALBUENA, M ANDRES Ot Z79.899 SP OTHER FULFILLMENT REPRESENTATIVE (CURRENT) DRUG THERAPY SP 09/29/2018 ROBIN BALBUENA, M ANDRES Ot Z96.652 SP PRESENCE OF LEFT ARTIFICIAL KNEE JOINT SP 09/30/2018 ADOLPH BALBUENA, MARTY Crook Ot F41. 9 SP DISORDER, UNSPECIFIED SP 09/30/2018 ADOLPH BALBUENA, MARTY Crook Ot I10 SP (PRIMARY) HYPERTENSION SP 09/30/2018 ADOLPH BALBUENA, MARTY Crook Ot I48. 91 SP ATRIAL FIBRILLATION SP 09/30/2018 ADOLPH BALBUENA, MARTY Crook Ot L23. 9 SP CONTACT DERMATITIS, UNSPECIFIED SP 09/30/2018 ADOLPH BALBUENA, MARTY Crook Ot Z79. 01 SP TERM (CURRENT) USE OF ANTICOAGULANT SP 09/30/2018 ADOLPH BALBUENA, MARTY Crook Ot Z82. 49 SP HX OF ISCHEM HEART DIS AND OTH DI SP 09/30/2018 MARTY FARFAN MD Ot Z88. 8 SP STATUS TO OTH DRUG/MEDS/BIOL SUB SP 11/11/2018 ROBIN BALBUENA, Reagan CAMPOS Ot G47.00 SP INSOMNIA, UNSPECIFIED SP 11/11/2018 ROBIN BALBUENA, Reagan CAMPOS Ot G47.61 SP PERIODIC LIMB MOVEMENT DISORDER SP 11/11/2018 ROBIN BALBUENA, Reagan CAMPOS Ot I48 .0 SP ATRIAL FIBRILLATION SP 11/11/2018 ROBIN BALBUENA, Reagan CAMPOS Ot I49 .1 SP PREMATURE DEPOLARIZATION SP 11/11/2018 ROBIN BALBUENA, Reagan CAMPOS Ot I49 .5 SP SINUS SYNDROME SP 11/12/2018 ROBIN BALBUENA, Reagan CAMPOS Ot G47.00 SP INSOMNIA, UNSPECIFIED SP 11/12/2018 ROBIN BALBUENA, Reagan CAMPOS Ot G47.61 SP PERIODIC LIMB MOVEMENT DISORDER SP 11/12/2018 ROBIN BALBUENA, Reagan CAMPOS Ot I48 .0 SP ATRIAL FIBRILLATION SP 11/12/2018 ROBIN BALBUENA, Reagan CAMPOS Ot I49 .1 SP PREMATURE DEPOLARIZATION SP 11/12/2018 RBOIN BALBUENA, Reagan CAMPOS Ot I49 .5 SP SINUS SYNDROME SP 04/24/2019 ROBIN BALBUENA, Reagan CAMPOS Ot G47.00 SP INSOMNIA, UNSPECIFIED SP 04/24/2019 ROBIN BALBUENA, Reagan CAMPOS Ot G47.61 SP PERIODIC LIMB MOVEMENT DISORDER SP 04/24/2019 ROBIN BALBUENA, Reagan CAMPOS Ot I48 .0 SP ATRIAL FIBRILLATION SP 04/24/2019 ROBIN BALBUENA, Reagan CAMPOS Ot I49 .1 SP PREMATURE DEPOLARIZATION SP 04/24/2019 ROBIN BALBUENA, Reagan CAMPOS Ot I49 .5 SP SINUS SYNDROME SP 04/24/2019 DEEDEE MONTOYA MD Ot F41 .9 SP DISORDER, UNSPECIFIED SP 04/24/2019 DEEDEE MONTOYA MD Ot G62 .9 SP UNSPECIFIED SP 04/24/2019 DEEDEE MONTOYA MD Ot I10 SP (PRIMARY) HYPERTENSION SP 04/24/2019 DEEDEE MONTOYA MD Ot I48.91 SP UNSPECIFIED ATRIAL FIBRILLATION SP 04/24/2019 DEEDEE MONTOYA MD Ot M25.562 SP PAIN IN LEFT KNEE SP 04/24/2019 DEEDEE MONTOYA MD Ot Z80 .0 SP HISTORY OF MALIGNANT NEOPLASM OF SP 04/24/2019 DEEDEE MONTOYA MD Ot Z80.42 SP FAMILY HISTORY OF MALIGNANT NEOPLASM OF SP 04/24/2019 DEEDEE MONTOYA MD Ot Z82.49 SP FAMILY HX OF ISCHEM HEART DIS AND OTH DI SP 04/24/2019 DEEDEE MONTOYA MD Ot Z88 .8 SP STATUS TO OTH DRUG/MEDS/BIOL SUB SP 04/24/2019 DEEDEE MONTOYA MD Ot Z90.710 SP ACQUIRED ABSENCE OF BOTH CERVIX AND UTER SP 04/24/2019 DEEDEE MONTOYA MD Ot Z96.652 SP PRESENCE OF LEFT ARTIFICIAL KNEE JOINT SP Procedures Code Description Performed By Per formed On POS 77.79 EXCI SE BONE FOR GFT NEC SP 05/02/2014 SP 80.51 EXCI CORINA INTERVERT DISC SP 05/02/2014 SP 81.02 OTH CERVICAL FUSION OF SP COLUMN, 05/02/2014 SP 81.62 FUSI ON/REFUS OF 2-3 VERTEBRAE SP 05/02/2014 SP 84.51 INSE RTION OF INTERBODY SPINAL SP DEV 05/02/2014 SP Results Test Result Range POS Methicillin resistant Staphylococcus aur eus (MRSA) screening culture - 05/27/18 POS Methicillin resistant Staphylococcus aureus (MRSA) scr eening culture POS NRG SP Complete blood count (CBC) with automate d white blood cell (WBC) differential - POS 19:11 Blood leukocytes automated count (number/volume) 7.7 10*3/uL POS 4.3-11.0 SP Blood erythrocytes automated count (number/volume) 3.82 10*6/uL SP 4.35-5.85 SP Venous blood hemoglobin measurement (mass/volume) 11.0 g/dL SP16.0 Blood hematocrit (volume fraction) 34 % 35-52 SP Automated erythrocyte mean corpuscular volume 89 [ foz_us] SP99 Automated erythrocyte mean corpuscular h emoglobin (mass per erythrocyte) SP 29 pg 25-34 SP Automated erythrocyte mean corpuscular h emoglobin concentration measurement SP 32 g/dL 32-36 SP Automated erythrocyte distribution width ratio 14. 5 % 10.0- SP Automated blood platelet count (count/volume) 208 10*3/uL SP400 Automated blood platelet mean volume measurement 10.2 [foz_us] SP 7.4-10.4 SP Automated blood neutrophils/100 leukocytes 90 % 42-75 SP Automated blood lymphocytes/100 leukocytes 8 % 12-44 SP Blood monocytes/100 leukocytes 3 % 0-12 SP Automated blood eosinophils/100 leukocytes 0 % 0-10 SP Automated blood basophils/100 leukocytes 0 % 0-10 SP Blood neutrophils automated count (number/volume) 6.9 10*3 SP7.8 Blood lymphocytes automated count (number/volume) 0.6 10*3 SP4.0 Blood monocytes automated count (number/volume) 0. 2 10*3 SP1.0 Automated eosinophil count 0.0 10*3/uL 0 .0-0.3 SP Automated blood basophil count (count/volume) 0.0 10*3/uL SP0.1 Blood lactic acid measurement (moles/vol ume) - 05/27/18 19:11 POS Blood lactic acid measurement (moles/volume) 1.25 mmol/L SP2.00 Blood manual differential performed dete ction - 05/27/18 19:11 POS Blood monocytes/100 leukocytes 1 % NRG SP Manual blood segmented neutrophils/100 leukocytes 83 % NRG SP Blood band neutrophils/100 leukocytes 1 % NRG SP Manual blood lymphocytes/100 leukocytes 15 % NRG SP Manual eosinophils/100 leukocytes in nose 0 % NRG SP Manual blood basophils/100 leukocytes 0 % NRG SP Blood erythrocyte morphology finding identification NORMAL SP Comprehensive metabolic panel - 05/27/18 19:11 POS Serum or plasma sodium measurement (moles/volume) 138 mmol/L SP 135-145 SP Serum or plasma potassium measurement (moles/volume) 3.7 mmol/L SP 3.6-5.0 SP Serum or plasma chloride measurement (moles/volume) 106 mmol/L SP 98-107 SP Carbon dioxide 20 mmol/L 21-32 SP Serum or plasma anion gap determination (moles/volume) 12 mmol/L SP 5-14 SP Serum or plasma urea nitrogen measurement (mass/volume ) 8 mg/dL SP 7-18 SP Serum or plasma creatinine measurement (mass/volume) 0.69 mg/dL SP 0.60-1.30 SP Serum or plasma urea nitrogen/creatinine mass ratio 12 NRG SP Serum or plasma creatinine measurement w ith calculation of estimated glomerular SP rate > NRG SP Serum or plasma glucose measurement (mass/volume) 136 mg/dL SP105 Serum or plasma calcium measurement (mass/volume) 8.9 mg/dL SP10.1 Serum or plasma total bilirubin measurement (mass/volu me) 0.4 mg/dL SP 0.1-1.0 SP Serum or plasma alkaline phosphatase park surement (enzymatic activity/volume) SP 101 U/L 40-136 SP Serum or plasma aspartate aminotransfera se measurement (enzymatic SP 26 U/L 5-34 SP Serum or plasma alanine aminotransferase measurement (enzymatic activity/volume) SP 26 U/L 0-55 SP Serum or plasma protein measurement (mass/volume) 6.7 g/dL SP8.2 Serum or plasma albumin measurement (mass/volume) 4.0 g/dL SP4.5 CALCIUM CORRECTED 8.9 mg/dL 8.5-10.1 SP Serum or plasma troponin i.cardiac measu rement (mass/volume) - 05/27/18 19:11 POS Serum or plasma troponin i.cardiac measurement (mass/v olume) < ng/mL POS <0.30 SP Myoglobin, serum - 05/27/18 19:11 POS Myoglobin, serum 42.4 ng/mL 10.0-92.0 SP Complete urinalysis with reflex to cultu re - 05/27/18 22:21 POS Urine color determination YELLOW NRG SP Urine clarity determination CLEAR NR G SP Urine pH measurement by test strip 7 5-9 SP Specific gravity of urine by test strip 1.005 1.016-1.022 SP Urine protein assay by test strip, semi-quantitative NEGATIVE SP NEGATIVE SP Urine glucose detection by automated test strip 1+ NEGATIVE SP Erythrocytes detection in urine sediment by light micr oscopy NEGATIVE SP NEGATIVE SP Urine ketones detection by automated test strip NE GATIVE SP Urine nitrite detection by test strip NEGATIVE NEGATIVE SP Urine total bilirubin detection by test strip NEGA TIVE SP Urine urobilinogen measurement by automated test strip (mass/volume) SP NORMAL SP Urine leukocyte esterase detection by dipstick NEG ATIVE SP Automated urine sediment erythrocyte cou nt by microscopy (number/high power SP NONE NRG SP Automated urine sediment leukocyte count by microscopy (number/high power field) SP NONE NRG SP Bacteria detection in urine sediment by light microsco py NONE SP NRG SP Squamous epithelial cells detection in u rine sediment by light microscopy SP RARE NRG SP Crystals detection in urine sediment by light microsco py NONE SP NRG SP Casts detection in urine sediment by light microscopy NONE SP Mucus detection in urine sediment by light microscopy NEGATIVE SP NRG SP Complete urinalysis with reflex to culture NO NRG SP Complete blood count (CBC) with automate d white blood cell (WBC) differential - POS 03:10 Blood leukocytes automated count (number/volume) 8.0 10*3/uL POS 4.3-11.0 SP Blood erythrocytes automated count (number/volume) 3.74 10*6/uL SP 4.35-5.85 SP Venous blood hemoglobin measurement (mass/volume) 10.8 g/dL SP16.0 Blood hematocrit (volume fraction) 33 % 35-52 SP Automated erythrocyte mean corpuscular volume 89 [ foz_us] SP99 Automated erythrocyte mean corpuscular h emoglobin (mass per erythrocyte) SP 29 pg 25-34 SP Automated erythrocyte mean corpuscular h emoglobin concentration measurement SP 33 g/dL 32-36 SP Automated erythrocyte distribution width ratio 14. 6 % 10.0- SP Automated blood platelet count (count/volume) 231 10*3/uL SP400 Automated blood platelet mean volume measurement 10.2 [foz_us] SP 7.4-10.4 SP Automated blood neutrophils/100 leukocytes 82 % 42-75 SP Automated blood lymphocytes/100 leukocytes 11 % 12-44 SP Blood monocytes/100 leukocytes 7 % 0-12 SP Automated blood eosinophils/100 leukocytes 0 % 0-10 SP Automated blood basophils/100 leukocytes 0 % 0-10 SP Blood neutrophils automated count (number/volume) 6.6 10*3 SP7.8 Blood lymphocytes automated count (number/volume) 0.9 10*3 SP4.0 Blood monocytes automated count (number/volume) 0. 6 10*3 SP1.0 Automated eosinophil count 0.0 10*3/uL 0 .0-0.3 SP Automated blood basophil count (count/volume) 0.0 10*3/uL SP0.1 Serum or plasma phosphate measurement (m ass/volume) - 05/28/18 03:10 POS Serum or plasma phosphate measurement (mass/volume) 2.4 mg/dL SP 2.3-4.7 SP Magnesium - 05/28/18 03:10 POS Magnesium 2.6 mg/dL 1.8-2.4 SP Comprehensive metabolic panel - 05/28/18 03:10 POS Serum or plasma sodium measurement (moles/volume) 138 mmol/L SP 135-145 SP Serum or plasma potassium measurement (moles/volume) 3.7 mmol/L SP 3.6-5.0 SP Serum or plasma chloride measurement (moles/volume) 104 mmol/L SP 98-107 SP Carbon dioxide 21 mmol/L 21-32 SP Serum or plasma anion gap determination (moles/volume) 13 mmol/L SP 5-14 SP Serum or plasma urea nitrogen measurement (mass/volume ) 7 mg/dL SP 7-18 SP Serum or plasma creatinine measurement (mass/volume) 0.71 mg/dL SP 0.60-1.30 SP Serum or plasma urea nitrogen/creatinine mass ratio 10 NRG SP Serum or plasma creatinine measurement w ith calculation of estimated glomerular SP rate > NRG SP Serum or plasma glucose measurement (mass/volume) 115 mg/dL SP105 Serum or plasma calcium measurement (mass/volume) 9.0 mg/dL SP10.1 Serum or plasma total bilirubin measurement (mass/volu me) 0.4 mg/dL SP 0.1-1.0 SP Serum or plasma alkaline phosphatase park surement (enzymatic activity/volume) SP 95 U/L 40-136 SP Serum or plasma aspartate aminotransfera se measurement (enzymatic SP 25 U/L 5-34 SP Serum or plasma alanine aminotransferase measurement (enzymatic activity/volume) SP 22 U/L 0-55 SP Serum or plasma protein measurement (mass/volume) 6.8 g/dL SP8.2 Serum or plasma albumin measurement (mass/volume) 4.1 g/dL SP4.5 CALCIUM CORRECTED 8.9 mg/dL 8.5-10.1 SP Complete blood count (CBC) with automate d white blood cell (WBC) differential - POS 05:10 Blood leukocytes automated count (number/volume) 6.0 10*3/uL POS 4.3-11.0 SP Blood erythrocytes automated count (number/volume) 3.50 10*6/uL SP 4.35-5.85 SP Venous blood hemoglobin measurement (mass/volume) 10.2 g/dL SP16.0 Blood hematocrit (volume fraction) 31 % 35-52 SP Automated erythrocyte mean corpuscular volume 90 [ foz_us] SP99 Automated erythrocyte mean corpuscular h emoglobin (mass per erythrocyte) SP 29 pg 25-34 SP Automated erythrocyte mean corpuscular h emoglobin concentration measurement SP 33 g/dL 32-36 SP Automated erythrocyte distribution width ratio 14. 3 % 10.0- SP Automated blood platelet count (count/volume) 211 10*3/uL SP400 Automated blood platelet mean volume measurement 10.3 [foz_us] SP 7.4-10.4 SP Automated blood neutrophils/100 leukocytes 60 % 42-75 SP Automated blood lymphocytes/100 leukocytes 29 % 12-44 SP Blood monocytes/100 leukocytes 11 % 0-12 SP Automated blood eosinophils/100 leukocytes 0 % 0-10 SP Automated blood basophils/100 leukocytes 0 % 0-10 SP Blood neutrophils automated count (number/volume) 3.6 10*3 SP7.8 Blood lymphocytes automated count (number/volume) 1.7 10*3 SP4.0 Blood monocytes automated count (number/volume) 0. 6 10*3 SP1.0 Automated eosinophil count 0.0 10*3/uL 0 .0-0.3 SP Automated blood basophil count (count/volume) 0.0 10*3/uL SP0.1 Comprehensive metabolic panel - 05/29/18 05:10 POS Serum or plasma sodium measurement (moles/volume) 139 mmol/L SP 135-145 SP Serum or plasma potassium measurement (moles/volume) 4.2 mmol/L SP 3.6-5.0 SP Serum or plasma chloride measurement (moles/volume) 109 mmol/L SP 98-107 SP Carbon dioxide 20 mmol/L 21-32 SP Serum or plasma anion gap determination (moles/volume) 10 mmol/L SP 5-14 SP Serum or plasma urea nitrogen measurement (mass/volume ) 14 mg/dL SP 7-18 SP Serum or plasma creatinine measurement (mass/volume) 0.75 mg/dL SP 0.60-1.30 SP Serum or plasma urea nitrogen/creatinine mass ratio 19 NRG SP Serum or plasma creatinine measurement w ith calculation of estimated glomerular SP rate > NRG SP Serum or plasma glucose measurement (mass/volume) 87 mg/dL SP105 Serum or plasma calcium measurement (mass/volume) 8.7 mg/dL SP10.1 Serum or plasma total bilirubin measurement (mass/volu me) 0.6 mg/dL SP 0.1-1.0 SP Serum or plasma alkaline phosphatase park surement (enzymatic activity/volume) SP 81 U/L 40-136 SP Serum or plasma aspartate aminotransfera se measurement (enzymatic SP 21 U/L 5-34 SP Serum or plasma alanine aminotransferase measurement (enzymatic activity/volume) SP 20 U/L 0-55 SP Serum or plasma protein measurement (mass/volume) 5.6 g/dL SP8.2 Serum or plasma albumin measurement (mass/volume) 3.5 g/dL SP4.5 CALCIUM CORRECTED 9.1 mg/dL 8.5-10.1 SP Complete blood count (CBC) with automate d white blood cell (WBC) differential - POS 06:27 Blood leukocytes automated count (number/volume) 6.6 10*3/uL POS 4.3-11.0 SP Blood erythrocytes automated count (number/volume) 3.43 10*6/uL SP 4.35-5.85 SP Venous blood hemoglobin measurement (mass/volume) 10.0 g/dL SP16.0 Blood hematocrit (volume fraction) 31 % 35-52 SP Automated erythrocyte mean corpuscular volume 89 [ foz_us] SP99 Automated erythrocyte mean corpuscular h emoglobin (mass per erythrocyte) SP 29 pg 25-34 SP Automated erythrocyte mean corpuscular h emoglobin concentration measurement SP 33 g/dL 32-36 SP Automated erythrocyte distribution width ratio 14. 3 % 10.0- SP Automated blood platelet count (count/volume) 224 10*3/uL SP400 Automated blood platelet mean volume measurement 10.0 [foz_us] SP 7.4-10.4 SP Automated blood neutrophils/100 leukocytes 70 % 42-75 SP Automated blood lymphocytes/100 leukocytes 20 % 12-44 SP Blood monocytes/100 leukocytes 10 % 0-12 SP Automated blood eosinophils/100 leukocytes 0 % 0-10 SP Automated blood basophils/100 leukocytes 0 % 0-10 SP Blood neutrophils automated count (number/volume) 4.6 10*3 SP7.8 Blood lymphocytes automated count (number/volume) 1.3 10*3 SP4.0 Blood monocytes automated count (number/volume) 0. 7 10*3 SP1.0 Automated eosinophil count 0.0 10*3/uL 0 .0-0.3 SP Automated blood basophil count (count/volume) 0.0 10*3/uL SP0.1 Comprehensive metabolic panel - 05/30/18 06:27 POS Serum or plasma sodium measurement (moles/volume) 138 mmol/L SP 135-145 SP Serum or plasma potassium measurement (moles/volume) 3.7 mmol/L SP 3.6-5.0 SP Serum or plasma chloride measurement (moles/volume) 104 mmol/L SP 98-107 SP Carbon dioxide 24 mmol/L 21-32 SP Serum or plasma anion gap determination (moles/volume) 10 mmol/L SP 5-14 SP Serum or plasma urea nitrogen measurement (mass/volume ) 15 mg/dL SP 7-18 SP Serum or plasma creatinine measurement (mass/volume) 0.77 mg/dL SP 0.60-1.30 SP Serum or plasma urea nitrogen/creatinine mass ratio 19 NRG SP Serum or plasma creatinine measurement w ith calculation of estimated glomerular SP rate > NRG SP Serum or plasma glucose measurement (mass/volume) 108 mg/dL SP105 Serum or plasma calcium measurement (mass/volume) 8.6 mg/dL SP10.1 Serum or plasma total bilirubin measurement (mass/volu me) 0.5 mg/dL SP 0.1-1.0 SP Serum or plasma alkaline phosphatase [place] surement (enzymatic activity/volume) SP 85 U/L 40-136 SP Serum or plasma aspartate aminotransfera se measurement (enzymatic SP 19 U/L 5-34 SP Serum or plasma alanine aminotransferase measurement (enzymatic activity/volume) SP 18 U/L 0-55 SP Serum or plasma protein measurement (mass/volume) 5.9 g/dL SP8.2 Serum or plasma albumin measurement (mass/volume) 3.7 g/dL SP4.5 CALCIUM CORRECTED 8.8 mg/dL 8.5-10.1 SP Complete blood count (CBC) with automate d white blood cell (WBC) differential - POS 05:15 Blood leukocytes automated count (number/volume) 5.3 10*3/uL POS 4.3-11.0 SP Blood erythrocytes automated count (number/volume) 3.58 10*6/uL SP 4.35-5.85 SP Venous blood hemoglobin measurement (mass/volume) 10.4 g/dL SP16.0 Blood hematocrit (volume fraction) 32 % 35-52 SP Automated erythrocyte mean corpuscular volume 91 [ foz_us] SP99 Automated erythrocyte mean corpuscular h emoglobin (mass per erythrocyte) SP 29 pg 25-34 SP Automated erythrocyte mean corpuscular h emoglobin concentration measurement SP 32 g/dL 32-36 SP Automated erythrocyte distribution width ratio 15. 5 % 10.0- SP Automated blood platelet count (count/volume) 73 1 0*3/uL SP400 Automated blood platelet mean volume measurement 12.0 [foz_us] SP 7.4-10.4 SP Automated blood neutrophils/100 leukocytes 64 % 42-75 SP Automated blood lymphocytes/100 leukocytes 25 % 12-44 SP Blood monocytes/100 leukocytes 10 % 0-12 SP Automated blood eosinophils/100 leukocytes 0 % 0-10 SP Automated blood basophils/100 leukocytes 0 % 0-10 SP Blood neutrophils automated count (number/volume) 3.4 10*3 SP7.8 Blood lymphocytes automated count (number/volume) 1.3 10*3 SP4.0 Blood monocytes automated count (number/volume) 0. 5 10*3 SP1.0 Automated eosinophil count 0.0 10*3/uL 0 .0-0.3 SP Automated blood basophil count (count/volume) 0.0 10*3/uL SP0.1 Whole blood basic metabolic panel - 03/10 06:50 POS Serum or plasma sodium measurement (moles/volume) 133 mmol/L SP 135-145 SP Serum or plasma potassium measurement (moles/volume) 4.1 mmol/L SP 3.6-5.0 SP Serum or plasma chloride measurement (moles/volume) 100 mmol/L SP 98-107 SP Carbon dioxide 23 mmol/L 21-32 SP Serum or plasma anion gap determination (moles/volume) 10 mmol/L SP 5-14 SP Serum or plasma urea nitrogen measurement (mass/volume ) 20 mg/dL SP 7-18 SP Serum or plasma creatinine measurement (mass/volume) 0.73 mg/dL SP 0.60-1.30 SP Serum or plasma urea nitrogen/creatinine mass ratio 27 NRG SP Serum or plasma creatinine measurement w ith calculation of estimated glomerular SP rate > NRG SP Serum or plasma glucose measurement (mass/volume) 108 mg/dL SP105 Serum or plasma calcium measurement (mass/volume) 9.0 mg/dL SP10.1 Magnesium - 05/31/18 06:50 POS Magnesium 2.4 mg/dL 1.8-2.4 SP CBC - 09/22/18 09:44 POS WHITE BLOOD CELL COUNT 5.1 Thousand/uL 3 .8-10.8 SP RED BLOOD CELL COUNT 5.19 Million/uL 3.8 0-5.10 SP HEMOGLOBIN 14.1 g/dL 11.7-15.5 SP HEMATOCRIT 44.4 % 35.0-45.0 SP MCV 85.5 fL 80.0-100.0 SP MCH 27.2 pg 27.0-33.0 SP MCHC 31.8 g/dL 32.0-36.0 SP RDW 14.6 % 11.0-15.0 SP PLATELET COUNT 329 Thousand/uL 140-400 SP MPV 9.8 fL 7.5-12.5 SP ABSOLUTE NEUTROPHILS 2882 cells/uL 1500- 7800 SP ABSOLUTE LYMPHOCYTES 1907 cells/uL 850-3 900 SP ABSOLUTE MONOCYTES 281 cells/uL 200-950 SP ABSOLUTE EOSINOPHILS 0 cells/uL 15-500 SP ABSOLUTE BASOPHILS 31 cells/uL 0-200 SP NEUTROPHILS 56.5 % NRG SP LYMPHOCYTES 37.4 % NRG SP MONOCYTES 5.5 % NRG SP EOSINOPHILS 0.0 % NRG SP BASOPHILS 0.6 % NRG SP PDM - 09 PANEL (PROFILE 1) - 09/22/18 09 :44 POS Prescribed Drug 1 Nucynta(TM) NRG SP Creatinine 145.8 mg/dL > or=20.0 SP pH 6.08 4.5 - 9.0 SP Oxidant NEGATIVE mcg/mL <200 SP Amphetamines NEGATIVE ng/mL <500 SP medMATCH Amphetamines CONSISTENT NRG SP Benzodiazepines POSITIVE ng/mL <100 SP Marijuana Metabolite NEGATIVE ng/mL <20 SP medMATCH Marijuana Metab CONSISTENT NRG SP Cocaine Metabolite NEGATIVE ng/mL <150 SP medMATCH Cocaine Metab CONSISTENT NRG SP Opiates NEGATIVE ng/mL <100 SP medMATCH Opiates CONSISTENT NRG SP Oxycodone NEGATIVE ng/mL <100 SP medMATCH Oxycodone CONSISTENT NRG SP COMMENT NRG SP Alphahydroxyalprazolam 90 ng/mL <25 SP medMATCH aOH alprazolam CONSISTENT NRG SP Alphahydroxymidazolam NEGATIVE ng/mL < 50 SP medMATCH aOH midazolam CONSISTENT NRG SP Alphahydroxytriazolam NEGATIVE ng/mL < 50 SP medMATCH aOH triazolam CONSISTENT NRG SP Aminoclonazepam NEGATIVE ng/mL <25 SP medMATCH Aminoclonazepam CONSISTENT NRG SP Hydroxyethylflurazepam NEGATIVE ng/mL <50 SP medMATCH OH,Et flurazepam CONSISTENT NR G SP Lorazepam NEGATIVE ng/mL <50 SP medMATCH Lorazepam CONSISTENT NRG SP Nordiazepam NEGATIVE ng/mL <50 SP medMATCH Nordiazepam CONSISTENT NRG SP Oxazepam 2466 ng/mL <50 SP medMATCH Oxazepam INCONSISTENT NRG SP Temazepam >69170 ng/mL <50 SP medMATCH Temazepam INCONSISTENT NRG SP Prescribed Drug 2 Alprazolam NRG SP Barbiturates NEGATIVE ng/mL <300 SP medMATCH Barbiturates CONSISTENT NRG SP Methadone Metabolite NEGATIVE ng/mL <100 SP medMATCH Methadone Metab CONSISTENT NRG SP Phencyclidine NEGATIVE ng/mL <25 SP medMATCH Phencyclidine CONSISTENT NRG SP Automated blood complete blood count (he mogram) panel - 09/24/18 08:10 POS Blood leukocytes automated count (number/volume) 4.8 10*3/uL SP 4.3-11.0 SP Blood erythrocytes automated count (number/volume) 4.83 10*6/uL SP 4.35-5.85 SP Venous blood hemoglobin measurement (mass/volume) 13.1 g/dL SP16.0 Blood hematocrit (volume fraction) 41 % 35-52 SP Automated erythrocyte mean corpuscular volume 86 [ foz_us] SP99 Automated erythrocyte mean corpuscular h emoglobin (mass per erythrocyte) SP 27 pg 25-34 SP Automated erythrocyte mean corpuscular h emoglobin concentration measurement SP 32 g/dL 32-36 SP Automated erythrocyte distribution width ratio 15. 6 % 10.0- SP Automated blood platelet count (count/volume) 285 10*3/uL SP400 Automated blood platelet mean volume measurement 9.6 [foz_us] SP 7.4-10.4 SP PT panel in platelet poor plasma by coag ulation assay - 09/24/18 08:10 POS Prothrombin time (PT) in platelet poor plasma by coagu lation assay SP s 12.2-14.7 SP INR in platelet poor plasma or blood by coagulation as say 0.9 SP 0.8-1.4 SP Activated partial thromboplastin time (a PTT) in platelet poor plasma POS assay - 09/24/18 08:10 Activated partial thromboplastin time (a PTT) in platelet poor plasma POS assay 28 s 24-35 SP Comprehensive metabolic panel - 09/24/18 08:10 POS Serum or plasma sodium measurement (moles/volume) 140 mmol/L SP 135-145 SP Serum or plasma potassium measurement (moles/volume) 3.6 mmol/L SP 3.6-5.0 SP Serum or plasma chloride measurement (moles/volume) 106 mmol/L SP 98-107 SP Carbon dioxide 25 mmol/L 21-32 SP Serum or plasma anion gap determination (moles/volume) 9 mmol/L SP 5-14 SP Serum or plasma urea nitrogen measurement (mass/volume ) 15 mg/dL SP 7-18 SP Serum or plasma creatinine measurement (mass/volume) 0.87 mg/dL SP 0.60-1.30 SP Serum or plasma urea nitrogen/creatinine mass ratio 17 NRG SP Serum or plasma creatinine measurement w ith calculation of estimated glomerular SP rate > NRG SP Serum or plasma glucose measurement (mass/volume) 81 mg/dL SP105 Serum or plasma calcium measurement (mass/volume) 9.7 mg/dL SP10.1 Serum or plasma total bilirubin measurement (mass/volu me) 0.5 mg/dL SP 0.1-1.0 SP Serum or plasma alkaline phosphatase park surement (enzymatic activity/volume) SP 133 U/L 40-136 SP Serum or plasma aspartate aminotransfera se measurement (enzymatic SP 23 U/L 5-34 SP Serum or plasma alanine aminotransferase measurement (enzymatic activity/volume) SP 18 U/L 0-55 SP Serum or plasma protein measurement (mass/volume) 7.3 g/dL SP8.2 Serum or plasma albumin measurement (mass/volume) 4.1 g/dL SP4.5 CALCIUM CORRECTED 9.6 mg/dL 8.5-10.1 SP Methicillin resistant Staphylococcus aur eus (MRSA) screening culture - 09/24/18 POS Methicillin resistant Staphylococcus aureus (MRSA) scr eening culture POS NRG SP LIPID PANEL - 04/23/19 09:28 POS CHOLESTEROL, TOTAL 187 mg/dL <200 SP HDL CHOLESTEROL 83 mg/dL >50 SP TRIGLYCERIDES 79 mg/dL <150 SP LDL-CHOLESTEROL 87 mg/dL (calc) NRG SP CHOL/HDLC RATIO 2.3 (calc) <5.0 SP NON HDL CHOLESTEROL 104 mg/dL (calc) <13 0 SP CMP - 04/23/19 09:28 POS GLUCOSE 93 mg/dL 65-99 SP UREA NITROGEN (BUN) 19 mg/dL 7-25 SP CREATININE 0.87 mg/dL 0.50-0.99 SP eGFR NON-AFR. BURMESE 68 mL/min/1.73m2 > OR=60 SP eGFR 79 mL/min/1.73m2 > OR=60 SP BUN/CREATININE RATIO NOT APPLICABLE (calc) 6-22 SP SODIUM 142 mmol/L 135-146 SP POTASSIUM 3.9 mmol/L 3.5-5.3 SP CHLORIDE 107 mmol/L 98-110 SP CARBON DIOXIDE 25 mmol/L 20-32 SP CALCIUM 9.4 mg/dL 8.6-10.4 SP PROTEIN, TOTAL 6.8 g/dL 6.1-8.1 SP ALBUMIN 4.1 g/dL 3.6-5.1 SP GLOBULIN 2.7 g/dL (calc) 1.9-3.7 SP ALBUMIN/GLOBULIN RATIO 1.5 (calc) 1.0-2. 5 SP BILIRUBIN, TOTAL 0.4 mg/dL 0.2-1.2 SP ALKALINE PHOSPHATASE 106 U/L 33-130 SP AST 22 U/L 10-35 SP ALT 20 U/L 6-29 SP CBC - 04/23/19 09:28 POS WHITE BLOOD CELL COUNT 5.2 Thousand/uL 3 .8-10.8 SP RED BLOOD CELL COUNT 4.46 Million/uL 3.8 0-5.10 SP HEMOGLOBIN 13.2 g/dL 11.7-15.5 SP HEMATOCRIT 40.5 % 35.0-45.0 SP MCV 90.8 fL 80.0-100.0 SP MCH 29.6 pg 27.0-33.0 SP MCHC 32.6 g/dL 32.0-36.0 SP RDW 14.1 % 11.0-15.0 SP PLATELET COUNT 229 Thousand/uL 140-400 SP MPV 10.5 fL 7.5-12.5 SP ABSOLUTE NEUTROPHILS 2366 cells/uL 1500- 7800 SP ABSOLUTE LYMPHOCYTES 2361 cells/uL 850-3 900 SP ABSOLUTE MONOCYTES 432 cells/uL 200-950 SP ABSOLUTE EOSINOPHILS 10 cells/uL 15-500 SP ABSOLUTE BASOPHILS 31 cells/uL 0-200 SP NEUTROPHILS 45.5 % NRG SP LYMPHOCYTES 45.4 % NRG SP MONOCYTES 8.3 % NRG SP EOSINOPHILS 0.2 % NRG SP BASOPHILS 0.6 % NRG SP Encounters ACCT No. Visit Date/Time Discharge Status POS Pt. Type Provider Facility Loc./Un it POS Complaint POS [id number] 12/21/2018 09:30:00 12/21/2018 23:59: 59 CLS [facility] SP [id number] 04/23/2019 08:30:00 Document SPRegistration SP [id number] 09/22/2018 10:20:00 Document SPRegistration SP [id number] 04/24/2019 12:38:00 14:06:00 SP DIS Emergency DEEDEE MONTOYA MD [facility] ER FS LT KNEE PAIN SP [id number] 11/12/2018 00:11:00 23:59:59 SP CLS Preadmit Reagan KELLY MD [facility] CARD SINUS NODE DYSFUNCTION SP [id number] 08/13/2018 10:02:00 00:01:00 SP DIS Outpatient Reagan KELLY MD [facility] CARD SINUS NODE DYSFUNCTIO N SP [id number] 09/27/2018 16:20:00 16:44:00 SP DIS Emergency MARTY FARFAN MD [facility] ER FS PT HAS HIVES ON CHEST SP [id number] 09/24/2018 07:48:00 13:30:00 SP DIS Outpatient Reagan KELLY MD [facility] CATH PAF, FULFILLMENT REPRESENTATIVE SURVEI LLANCE SP [id number] 09/03/2018 07:27:00 23:59:59 SP CLS Outpatient ROBIN BALBUENA, Reagan CAMPOS [facility] CARD PAF SP [id number] 08/26/2018 12:43:00 23:59:59 SP CLS Preadmit DENISE MANZANARES MD [facility] SLEEP G47.33 AVI SP [id number] 08/06/2018 15:01:00 23:59:59 SP CLS Preadmit ROBIN BALBUENA, Reagan CAMPOS [facility] SLEEP SLEEP DISTURBANCE SP [id number] 08/05/2018 09:18:00 23:59:59 SP CLS Preadmit ROBIN BALBUENA, Reagan CAMPOS [facility] CARD PAC,PAF,HTN SP [id number] 08/04/2018 16:29:00 23:59:59 SP CLS Preadmit ROBIN BALBUENA, Reagan CAMPOS [facility] CARD PAC SP [id number] 05/27/2018 17:40:00 018 14:10:00 SP DIS Inpatient KIRK DO, APOLINAR [facility] 4TH LABLIE BP, A-FIB SP [id number] 05/29/2018 16:26:00 018 23:59:59 SP CLS Preadmit AQUILES BALBUENA, NOBLE Carlson SP LUMBAR RADICULOPATHY, NEUROGENIC CLAUDIC ATION SP [id number] 05/02/2014 06:00:00 014 10:42:00 SP DIS Inpatient LYDIA WOOD DO [facility] SURGICAL CERVICAL STENOSIS SP [id number] 04/18/2014 09:12:00 014 23:59:59 SP CLS Outpatient LYDIA WOOD DO [facility] PREOP CERVICAL STEONSIS SP [id number] 07/19/2019 08:00:00 P EN Reagan CALVILLO MD [facility] SP CATH ATRIAL FLUTTER SP [id number] 10/05/2016 11:07:01 ACT Unknown SP SP
[2019-06-07] MEDS ORDERED: MTP25TSR PO (07:54)
== END 2019-04-24 14:06 | disposition home or self-care (01) ==
LOC: ER FS 12:38
DX: M25.562 Pain in left knee (principal); I48.91 Unspecified atrial fibrillation; I10 Essential (primary) hypertension; F41.9 Anxiety disorder, unspecified; G62.9 Polyneuropathy, unspecified; Z90.710 Acquired absence of both cervix and uterus; Z96.652 Presence of left artificial knee joint; Z88.8 Allergy status to other drugs, medicaments and biological substances; Z82.49 Family history of ischemic heart disease and other diseases of the circulatory system; Z80.0 Family history of malignant neoplasm of digestive organs; Z80.42 Family history of malignant neoplasm of prostate
CPT/HCPCS: 73562

== ENCOUNTER 2019-06-07 06:47 | Day surgery (SDC) | payer MEDICARE, OTHER ==
--- NOTE | 2019-06-04 13:16 | Anesthesia-Procedure Note ---
Procedures/Interventions Procedure Start/Stop/Diagnosis Date of Procedure: Jun 04, 2019 Start Time: 12:55 Preprocedural Diagnosis: ARDS/ vent dependant Stop Time: 13:05 Arterial Line Arterial Line Catheter: 20G Type: Radial Location: Right Procedure: prepped, draped in sterile fashion, good wave-form was obtained, patient tolerated procedure well (sedated on precedex/propofol gtt), no immediate complications, post procedure area cleaned, post procedure dressing applied Additional Procedures Procedures Consent verified. x1 attempt by SAUL Yin under BLEACHING SUPERVISOR supervision with ultrasound guidance and visualization of catheter advancement. No issue. Sterile dressing applied. Good waveform obtained. Reported to nurse. Visitors at bedside throughout procedure. RINA WRIGHT CRNA Jun 04, 2019 13:16 POS
[2019-06-07] VITALS (14 sets, daily range): BP systolic 108–141; BP diastolic 67–89
[~2019-06-07] VITALS: Ht 160 cm; Wt 73.4 kg
[~2019-06-07 06:47] MED LIST changes: -OMEP40CA27 PO; +OMEP40CA36 PO
[2019-06-07] MEDS ORDERED: HEParin 1000 UNIT/ML (10ML VIAL) FOR BOLUS ONE (07:14)
[2019-06-07] MEDS ORDERED: LIDOCAINE 1% INJ 20 ML 20 ML VIAL ONE (07:14)
[2019-06-07] MEDS ORDERED: NS IV 1000 ML 3,000 ML ONE (07:14)
[2019-06-07] MEDS ORDERED: NS IV 1000 ML 1,000 ML IV SCH (07:14)
[2019-06-07] MEDS ORDERED: ISOPROTERENOL 0.2 MG/D5W 50 ML IV ONE (07:15)
[2019-06-07 07:46] LABS: HEMOGLOBIN 13.5 G/DL (11.5-16.0); MEAN PLATELET VOLUME 9.6 FL (7.4-10.4); RED CELL DISTRIBUTION WIDTH 14.4 % (10.0-14.5); WHITE BLOOD COUNT 5.3 10^3/uL (4.3-11.0)
[2019-06-07] MEDS ORDERED: METO-387 PO (07:54)
[2019-06-07] MEDS ORDERED: RIVA20TA PO (07:54)
[2019-06-07 07:59] LABS: INR 0.9 (0.8-1.4); PROTHROMBIN TIME PATIENT 12.3 SEC (12.2-14.7)
[2019-06-07 08:05] LABS: ALBUMIN 4.3 GM/DL (3.2-4.5); BILIRUBIN,TOTAL 0.4 MG/DL (0.1-1.0); CALCIUM 9.4 MG/DL (8.5-10.1); POTASSIUM 3.8 MMOL/L (3.6-5.0); TOTAL PROTEIN 7.5 GM/DL (6.4-8.2)
[2019-06-07] MEDS ORDERED: PROPOFOL DRIP (ICU) 100 ML IV ONE (08:05)
[2019-06-07] MEDS ORDERED: MIDAZOLAM 5 MG/5 ML (VERSED) VIAL ONE (08:05)
[2019-06-07] MEDS ORDERED: KETAMINE HCL 100 MG/ML 5 ML VIAL ONE (08:06)
--- NOTE | 2019-06-07 08:12 | NUR ---
SPOKE WITH PT (SHE HAD A MED LIST), WENT THRU THE EXT MED HISTORY WELL CALLING [facility] IN [facility] TO COMPLETE THE MED REC. PT WAS ABLE TO TELL ME HOW/WHEN SHE TAKES EACH MEDICATION AND THEY MATCHED THE DIRECTIONS FROM [facility]. THE FOLLOWING ARE FILL DATES THAT ARE NOT LISTED ON THE EXT MED HISTORY: 04-29-2019 DILTIAZEM #90/90DS 05-06-2019 XANAX #84/42 DS (RX IS WRITTEN TO TAKE TID, BUT PT SAYS SHE USUALLY ONLY TAKES BID) 05-06-2019 NUCYNTA #84/28DS 05-31-2019 TEMAZEPAM #30/30DS OTC MEDS: SENNA S ZYRTEC OMEPRAZOLE
[2019-06-07] MEDS ORDERED: ROCURONIUM 10 MG/ML 5 ML SYRINGE IV ONE ×2 (09:20→10:44)
--- NOTE | 2019-06-07 10:49 | History & Physicial-Cardiolgy ---
HPI-Cardiology Cardiology Consultation: Date of Consultation 06/07/19 Date of Admission Attending Physician Reagan Carr MD Admitting Physician Manoj Yeager MD Consulting Physician Reagan CARR MD HPI: Time Seen by a Provider: 09:00 Chief Complaint: Dizziness, palpitations This is a 68-year-old lady with history of paroxysmal atrial fibrillation, typical atrial flutter, moderate obstructive sleep apnea, hypertension, PACs, sinus node dysfunction. She has history of palpitations in the past. Complains of dizziness. The patient has an implantable loop recorder and device interrogation noted typical atrial flutter at cycle length of 400 ms before degenerating into atrial fibrillation. The hypothesis is that the patient develops typical atrial flutter which degenerates into atrial fibrillation. Typical atrial flutter ablation is recommended. Review of Systems-Cardiology Review of Systems Constitutional: As described under HPI; No As described under HPI, No no symptoms reported, No chills, No fever; lightheadedness Eyes: No As described under HPI, No no symptoms reported, No blindness, No blurred vision, No contact lenses, No drainage, No decreased acuity, No foreign body sensation, No pain, No vision change Ears/Nose/Throat: No As described under HPI, No no symptoms reported, No chronic hearing loss, No ear discharge, No ear pain, No nasal drainage, No ulcerations Respiratory: No no symptoms reported; As described under HPI; No As described under HPI, No cough, No orthopnea, No shortness of breath, No SOB with excertion Cardiovascular: No no symptoms reported; As described under HPI; No As described under HPI, No chest pain, No edema, No irregular heart rate, No lightheadedness; palpitations Gastrointestinal: No no symptoms reported, No As described under HPI, No abdomen distended, No abdominal pain, No blood streaked bowels, No constipation, No diarrhea, No nausea, No vomiting, No stool coloration changes Genitourinary: No As described under HPI, No burning, No dysuria, No discharge, No frequency, No flank pain, No hematuria, No urgency : Yes : No Skin: No rash, No skin related problems, No ulcerations Psychiatric/Neurological: No anxiety, No depression, No seizure, No focal w eakness, No syncope Hematologic: No bleeding abnormalities [id number] Hx Patient Social History Alcohol Use: Denies Use Recreational Drug Use: No Smoking Status: Never a Smoker 2nd Hand Smoke Exposure: No Recent Foreign Travel: No Immunizations Up To Date Date of Pneumonia Vaccine: Mar 06, 2016 Date of Influenza Vaccine: Mar 24, 2019 Past Medical History PMH As described under Assessment. Family Medical History Family History: Cardiovascular disease 19 FATHER Colon cancer 19 MOTHER Diabetes mellitus G8 BROTHER FH: prostate cancer 19 FATHER Hypertension 19 MOTHER Allergies and Home Medications Allergies Coded Allergies: adhesive tape (Verified Allergy, Unknown, 04/24/19) metoclopramide (Verified Allergy, Unknown, 04/24/19) ondansetron (Unverified Adverse Reaction, Unknown, nausea and vomiting, 04/24/19) Uncoded Allergies: PAIN MEDICATION (Adverse Reaction, Unknown, SIDE EFFECTS FROM PAIN MEDI CATIONS, 04/18/14) Home Medications Alprazolam 0.25 Mg Tablet, 0.25 MG PO BID PRN for ANXIETY, (Reported) Cetirizine HCl 10 Mg Tablet, 10 MG PO HS, (Reported) Diltiazem HCl 180 Mg Tab.er.24h, 180 MG PO DAILY, (Reported) Gabapentin 300 Mg Capsule, 600 MG PO HS, (Reported) TAKES 2 (300MG) CAPSULES Metoprolol Succinate 25 Mg Tab.er.24h, 12.5 MG PO 1700, (Reported) TAKES WITH DINNER Naloxone HCl 4 Mg [place], NS UD PRN for OPIOID SIDE EFFECTS, (Reported) Omeprazole 20 Mg Tablet.dr, 20 MG PO DAILY PRN for HEARTBURN, (Reported) Pramipexole Di-HCl 1 Mg Tablet, 1 MG PO 1900, (Reported) Rivaroxaban 20 Mg Tablet, 20 MG PO 1700, (Reported) TAKES WITH DINNER Sennosides/Docusate Sodium 1 Each Tablet, 1 TAB PO HS, (Reported) Tapentadol HCl 100 Mg Tablet, 100 MG PO TID, (Reported) Temazepam 30 Mg Capsule, 30 MG PO HS, (Reported) Patient Home Medication List Home Medication List Reviewed: Yes Physical Exam-Cardiology Physical Exam Vital Signs/I&O 06/07/19 07:23 Temp 36.7 Pulse 74 Resp 18 B/P (MAP) 141/89 (106) Pulse Ox 94 O2 Delivery Room Air Capillary Refill : Constitutional: appears stated age; No apparent distress; well-developed, well- nourished HEENT: PERRL; No discharge; hearing is well preserved, oral hygience is good; No ulceration, No xanthelasmas are seen Neck: No carotid bruit; carotid pulses are 2 + bilaterally Respiratory: chest is bilaterally symmetric, lungs clear to auscultation Cardiovascular: regular rate-rhythm, S1 and S2 Gastrointestinal: soft, audible bowel sounds; No spleenomegaly Rectal: deferred Extremities: No clubbing, No cyanosis; no lower extremity edema bilateral; No significant edema Neurologic/Psychiatric: no motor/sensory deficits, alert, normal mood/affect, oriented x 3, power is 5/5 both on sides Skin: normal color, warm/dry; No rash, No ulcerations Data Review Labs Laboratory Tests 06/07/19 07:39: White Blood Count 5.3, Red Blood Count 4.61, Hemoglobin 13.5, Hematocrit 42, Mean Corpuscular Volume 91, Mean Corpuscular Hemoglobin 29, Mean Corpuscular Hemoglobin Concent 32, Red Cell Distribution Width 14.4, Platelet Count 250, Mean Platelet Volume 9.6, Prothrombin Time 12.3, INR Comment 0.9, Activated Partial Thromboplast Time 29, Sodium Level 140, Potassium Level 3.8, Chloride Level 105, Carbon Dioxide Level 24, Anion Gap 11, Blood Urea Nitrogen 22H, Creatinine 1.00, Estimat Glomerular Filtration Rate 55, BUN/Creatinine Ratio 22, Glucose Level 95, Calcium Level 9.4, Corrected Calcium 9.2, Total Bilirubin 0.4, Aspartate Amino Transf (AST/SGOT) 38H, Alanine Aminotransferase (ALT/SGPT) 34, Alkaline Phosphatase 132, Total Protein 7.5, Albumin 4.3 ECG Impression ECG Initial ECG Rhythm: Normal Sinus A/P-Cardiology Assessment/Admission Diagnosis Paroxysmal atrial fibrillation, Typical atrial flutter Admission Status: Observation Plan Typical atrial flutter ablation is recommended. Reagan CARR MD Jun 07, 2019 10:49 am POS
--- NOTE | 2019-06-07 10:53 | Electrophysiology Procedure ---
EP Procedure DATE OF SERVICE:06/07/19 CARDIAC INDUSTRIAL DESIGNER: Li Carr MD, [facility], [facility]. INDICATION: Typical atrial flutter. PREOPERATIVE DIAGNOSIS: Typical atrial flutter. POSTOPERATIVE DIAGNOSES: Successful CTI-dependent typical atrial flutter ablation. HISTORY: This is a 68-year-old lady with history of paroxysmal atrial fibrillation, typical atrial flutter, moderate obstructive sleep apnea, hypertension, PACs, sinus node dysfunction. She has history of palpitations in the past. Complains of dizziness. The patient has an implantable loop recorder and device interrogation noted typical atrial flutter at cycle length of 400 ms before degenerating into atrial fibrillation. The hypothesis is that the patient develops typical atrial flutter which degenerates into atrial fibrillation. Typical atrial flutter ablation is recommended. The patient is planned for comprehensive EP study and ablation. PROCEDURE PERFORMED: 1. Comprehensive EP study with induction. 2. Fluoroscopy. 3.Left atrial pacing and recording. 4. Drug infusion. 5. Ablation of typical atrial flutter. 6. Comprehensive 3D mapping with the carto system. COMPLICATION: None. ESTIMATED BLOOD LOSS: 10 mL. CONTRAST USED: None. FLUOROSCOPY TIME: 5.5 minutes. FLUOROSCOPY DOSE: 111 mgy. SPECIMENS: None. ANESTHESIA: Done by our anesthesia colleagues. ANTICOAGULATION: On uninterrupted oral anticoagulation. PROCEDURE IN DETAIL: After informed consent was taken, the patient was brought to the EP lab. Anesthesia was provided by our anesthesia colleagues. The patient was draped and prepped in the usual sterile fashion. The patient presented to the EP lab in sinus rhythm. Access was gained in the right femoral vein with a 6-Latvian and an 8-Latvian sheath. Left access in left femoral vein was gained with 5-Latvian and 6-Latvian sheath respectively. High right atrial catheter was an ablation catheter, right ventricular catheter was placed, his catheter and the CS catheter were also placed. A comprehensive EP study was done including left atrial pacing and recording which did not demonstrate a left lateral pathway. Typical atrial flutter was not induced with rapid atrial pacing with and without Isuprel infusion. A 3D electroanatomic mapping was donewith the carto system. Ablation was performed in the cavotricuspid isthmus.CS pacing and pacing from the ablation catheter at different positions on the lateral side of the ablation line were used to verify bidirectional block. We then waited for 30 minutes and rechecked and confirmed bidirectional block.Isuprel was given post-procedure, however, we could not induce atrial flutter.The patienttolerated the procedure well and did not have any complication. The patientleft the lab in sinus rh [facility]. Total ablation time was 5 minutes and 35 seconds. MEASUREMENTS/EP STUDY: AA interval 1143 ms, AH interval 65 ms, HV interval 31 ms, FL interval 121 ms, QRS duration 61 ms, QT interval 337 ms, R-R interval 1040 ms, AV Wenckebach when pacing from the CS 12 at 360 ms, AV Wenckebach when pacing from high right atrial catheter at cycle length 360 ms, Retrograde Wenckebach at cycle length 560 ms, Atrial ERP was 600/210 ms, Retrograde ERP was 600/270 ms, Dual AV edmond physiology was not demonstrated. AV Wenckebach when pacing at 260 ms during Isuprel infusion, retrograde Wenckebach when pacing at 410 ms during Isuprel infusion, During Isuprel infusion atrial ERP is below 500/200 ms. During Isuprel infusion retrograde ERP is 500/250 ms. PLAN: The patient will be observed overnight and will be discharged home tomorrow with precise followup instructions. Li Carr MD, [facility] Cardiac Electrophysiology Reagan CARR MD Jun 07, 2019 10:53 am POS
[2019-06-07] MEDS ORDERED: NS IV 1000 ML 1,000 ML ONE (10:57)
[2019-06-07] MEDS ORDERED: PATIENT MAY USE OWN MEDS, ALL PO SCH (11:00)
[2019-06-07] MEDS ORDERED: GLYCOPYRROLATE 0.2 MG/ML (ROBINUL) 2 ML VIAL ONE (11:19)
[2019-06-07] MEDS ORDERED: NEOSTIGMINE 3 MG/3 ML VIAL ONE (11:19)
[2019-06-07] MEDS ORDERED: SEVOFLURANE (ULTANE) 15 ML INHAL SOLN ONE (11:39)
[2019-06-07] MEDS ORDERED: ONDANSETRON 4 MG/2 ML (SDV) Z0FRAN IVP PRN (11:45)
[2019-06-07] MEDS ORDERED: morphine INJ 10 MG/ML 1ML (SYR OR VIAL) IVP ONE (11:45)
--- NOTE | 2019-06-07 11:57 | Anesthesia-General Post-Op ---
General Patient Condition Mental Status/LOC: Same as Preop Cardiovascular: Satisfactory Nausea/Vomiting: Absent Respiratory: Satisfactory Pain: Controlled Complications: Absent Post Op Complications Complications None Follow Up Care/Instructions Patient Instructions None needed. Anesthesia/Patient Condition Patient Condition Patient is doing well, no complaints, stable vital signs, no apparent adverse anesthesia problems. No complications reported per nursing. ADELE DURANT CRNA Jun 07, 2019 11:57 POS
[2019-06-07] MEDS: NS IV 1000 ML 1,000 ML IV SCH ×2 (12:16→20:50)
--- NOTE | 2019-06-07 12:30 | NUR ---
Patient arrived to room CU4 at 1230. Nancy RN at bedside giving report. Pt is alert and oriented. Pt laying flat. on RA. VSS. This nurse educated patient on the importance of remaining flat for the time that was ordered by the physician. Bed in low position with wheels locked, call light is in reach. Will continue to monitor.
[2019-06-07] MEDS ORDERED: ALPRAZolam 0.25 MG (XANAX) TAB PO PRN ×2 (16:15→18:30)
[2019-06-07] MEDS ORDERED: PANTOPRAZOLE 20 MG TABLET (PROTONIX) PO PRN (16:15)
[2019-06-07] MEDS ORDERED: RIVAROXABAN 20 MG TABLET (XARELTO) PO SCH ×2 (17:00)
[2019-06-07] MEDS: NUCYNTA 100 MG PO SCH (17:32)
[2019-06-07] MEDS ORDERED: NON-FORMULARY MEDICATION 1 EA EA (Pramipexole Di-HCl (Pramipexole Dihydrochloride) 1 MG) PO SCH (19:00)
[2019-06-07] MEDS ORDERED: PRAMIPEXOLE 1 MG TABLET PO SCH (19:00)
[2019-06-07] MEDS ORDERED: PRAMIPEXOLE 0.5 MG TAB (MIRAPEX) PO SCH (19:00)
[2019-06-07] MEDS ORDERED: NON-FORMULARY MEDICATION 1 EA EA (Cetirizine HCl (Zyrtec) 10 MG) PO SCH (21:00)
[2019-06-07] MEDS ORDERED: GABAPENTIN 300 MG (NEURONTIN) CAP PO SCH (21:00)
[2019-06-07] MEDS ORDERED: LORATADINE (CLARITIN) 10 MG TAB PO SCH (21:00)
[2019-06-07] MEDS ORDERED: TEMAZEPAM 30 MG CAPSULE PO SCH (21:00)
[2019-06-07] MEDS ORDERED: TEMAZEPAM 15 MG (RESTORIL) CAP PO SCH (21:00)
[2019-06-07] MEDS ORDERED: ceTIRizine 10 MG (ZyrTEC) TAB NON-FORMULARY PO SCH (21:00)
[2019-06-07] MEDS ORDERED: SENNA W/DOCUSATE (SENOKOT S) TABLET PO SCH (21:00)
[2019-06-07] MEDS ORDERED: NON-FORMULARY MEDICATION 1 EA EA (Sennosides/Docusate Sodium (Senna S Tablet) 1 TAB) PO SCH (21:00)
[2019-06-07] MEDS ORDERED: NON-FORMULARY MEDICATION 1 EA EA (Temazepam 30 MG) PO SCH (21:00)
[2019-06-08 03:50] VITALS: BP 113/72
[2019-06-08 04:06] LABS: RED CELL DISTRIBUTION WIDTH 14.6 % (10.0-14.5); WHITE BLOOD COUNT 5.3 10^3/uL (4.3-11.0)
[2019-06-08 04:34] LABS: BUN/CREATININE RATIO 19; CALCIUM 8.5 MG/DL (8.5-10.1); CARBON DIOXIDE 19 MMOL/L (21-32); CHLORIDE 110 MMOL/L (98-107); CREATININE SERUM 0.81 MG/DL (0.60-1.30); GFR ESTIMATED > 60; GLUCOSE 86 MG/DL (70-105); POTASSIUM 3.8 MMOL/L (3.6-5.0); SODIUM 141 MMOL/L (135-145)
[2019-06-08] MEDS: NS IV 1000 ML 1,000 ML IV SCH (06:03)
[2019-06-08 08:00] VITALS: BP 124/70
[2019-06-08] MEDS: NUCYNTA 100 MG PO SCH (08:15)
[2019-06-08] MEDS ORDERED: DILTIAZEM 180 MG (CARDIZEM CD) CAP PO SCH ×2 (09:00)
[2019-06-08] MEDS ORDERED: NON-FORMULARY MEDICATION 1 EA EA (Diltiazem HCl (Diltiazem ER) 180 MG) PO SCH (09:00)
--- NOTE | 2019-06-08 11:38 | Discharge Inst-Post CATH ---
Discharge Inst-CATH/EP Problems Reviewed?: Yes Final Diagnosis typical atrial flutter, PAF Post Cardiac Cath/EP D/C Inst Follow Up/Plan Follow up in three to four weeks <b>CARDIAC CATH/EP PROCEDURE DISCHARGE INSTRUCTIONS</b> ACTIVITY * Go Home directly and rest. * Limit activity of the leg (or wrist if it was used) for 7 days including aerobics, swimming, jogging, bicycling, etc. * Restrict stair-climbing for 7 days if possible, if not, climb up with your non-cath leg, then bring together on the same step. * Avoid lifting, pushing, pulling or excessive movement of the affected extremity for 7 days. * Customary sexual activity may be resumed after 2 days-use caution not to use a position that strains or causes pain to the affected extremity. * No driving for 24 hours. * NO SMOKING. * Avoid straining for bowel movements for 7 days. * Gentle walking on level ground is allowed. * Returning to work will depend on the type of procedure and the results. Your doctor will discuss this with you. CALL YOUR DOCTOR FOR ANY OF THE FOLLOWING: *If bleeding from the puncture site occurs- Apply gentle pressure to site with clean cloth and call your doctor or EMS. * If a knot or lump forms under the skin, increases in size, or causes pain. * If bruising appears to be worsening or moving further down your leg instead of disappearing. * Temperature above 101 F. CARE OF YOUR GROIN INCISION; * Bruising or purple discoloration of the skin near the puncture site is common. * You may shower only, no bathtub bathing for 5 days. Be careful to avoid slip ping as your leg may feel stiff. * If a closure device was used on your femoral artery, please see the attached guide regarding care of the device and your leg. * Leave dressing on FOR 24 hours. CARE OF YOUR WRIST INCISION; * Bruising or purple discoloration of the skin near the puncture site is common. * You may shower. * DO NOT submerge wrist. * Leave dressing on FOR 24 hours. Reagan KELLY MD Jun 08, 2019 11:38 POS
--- NOTE | 2019-06-08 11:40 | Cardiology Discharge Summary ---
Diagnosis/Chief Complaint Date of Admission 06/07/2019 Date of Discharge 06/08/2019 Admission Diagnosis Typical atrial flutter, PAF Final/Discharge Diagnosis Typical atrial flutter, PAF Chief Complaint/HPI Chief Complaint/HPI This is a 68-year-old lady with history of paroxysmal atrial fibrillation, typical atrial flutter, moderate obstructive sleep apnea, hypertension, PACs, sinus node dysfunction. She has history of palpitations in the past. Complains of dizziness. The patient has an implantable loop recorder and device interrogation noted typical atrial flutter at cycle length of 400 ms before degenerating into atrial fibrillation. The hypothesis is that the patient develops typical atrial flutter which degenerates into atrial fibrillation. Typical atrial flutter ablation is recommended. Discharge Summary Procedures Typical atrial flutter ablation. Discharge Physical Examination Normal Cardiovascular Examination Hospital Course Was the Problem List Reviewed?: Yes Unremarkable Discussion & Recommendations Discussion Discharge instruction were discussed in length. Patient will be discharged on all previous medications. Follow up appt.: Follow up with Dr Carr in 3-4 weeks Dicharge Diet: Cardiac Diet Activity as Tolerated: Yes Home Medications Reviewed patient Home Medication Reconciliation performed by pharmacy medication reconciliations surfacing technician and/or nursing. Patients Allergies have been reviewed. Discharge Home Medications: Reviewed and agree with Discharge Medication list on patient's Discharge I nstruction sheet Condition at discharge stable Instructions to patient/family Follow up in three to four weeks Reagan CARR MD Jun 08, 2019 11:40 POS
[2019-06-08 12:00] VITALS: BP 122/80
== END 2019-06-08 12:30 | disposition home or self-care (01) ==
LOC: CATH 06:47 → ICU 13:07 → CATH 06-08 12:30
PROVIDERS: ATTEND Internal Medicine Interventional Cardiology
DX: I48.3 Typical atrial flutter (principal); I48.0 Paroxysmal atrial fibrillation; Z11.2 Encounter for screening for other bacterial diseases; G47.33 Obstructive sleep apnea (adult) (pediatric); I10 Essential (primary) hypertension; I49.5 Sick sinus syndrome; I49.1 Atrial premature depolarization; Z79.899 Other long term (current) drug therapy; Z79.01 Long term (current) use of anticoagulants; Z96.653 Presence of artificial knee joint, bilateral
CPT/HCPCS: 36415; 80048; 80053; 85027; 85610; 85730; 87081; 93005; 93613; 93623; 93653

== ENCOUNTER 2020-03-07 19:12 | Emergency (ER) | payer MEDICARE, OTHER ==
[~2020-03-07] VITALS: Ht 160 cm; Wt 76.2 kg
[~2020-03-07 19:12] MED LIST changes: -CETI10TA20 PO; +CETI10TA49 PO; +MTP25TSR PO; +OMEP40CA27 PO; -OMEP40CA36 PO; +RIVA20TA PO
[2020-03-07 19:34] LABS: BILIRUBIN,URINE NEGATIVE (NEGATIVE); CLARITY,URINE CLEAR; COLOR,URINE YELLOW; GLUCOSE, URINE (UA) NEGATIVE (NEGATIVE); KETONES,URINE NEGATIVE (NEGATIVE); LEUKOCYTE ESTERASE ,URINE NEGATIVE (NEGATIVE); NITRITE,URINE NEGATIVE (NEGATIVE); PH,URINE 5.5 (5-9); PROTEIN,URINE NEGATIVE (NEGATIVE)
[2020-03-07 19:41] LABS: BACTERIA,URINE TRACE /HPF; HYALINE CASTS, URINE RARE /LPF; SQUAMOUS EPITHELIAL CELL,UR 0-2 /HPF; WBC,URINE RARE /HPF
[2020-03-07] MEDS ORDERED: LACTATED RINGERS 1,000 ML IV ONE (20:05)
[2020-03-07] MEDS ORDERED: morphine INJ 10 MG/ML 1ML (SYR OR VIAL) IVP STA ×2 (20:05→22:41)
--- NOTE | 2020-03-07 20:57 | NUR ---
Aguila murdock in [facility] - 03/07/20 at [id number] JIM AREVALOED TO TURN RATE TO INFUSE OVER 1 HR
[2020-03-07 20:58] LABS: BASOPHILS % (AUTO) 0 % (0-10); EOSINOPHILS % (AUTO) 1 % (0-10); HEMATOCRIT 38 % (35-52); HEMOGLOBIN 12.3 G/DL (11.5-16.0); LYMPHOCYTES # (AUTO) 2.3 X 10^3 (1.0-4.0); LYMPHOCYTES % (AUTO) 37 % (12-44); MEAN CORPUSCULAR HEMOGLOBIN 29 PG (25-34); MEAN CORPUSCULAR HGB CONC 32 G/DL (32-36); MEAN CORPUSCULAR VOLUME 90 FL (80-99); MEAN PLATELET VOLUME 9.9 FL (7.4-10.4); MONOCYTES # (AUTO) 0.6 X 10^3 (0.0-1.0); MONOCYTES % (AUTO) 10 % (0-12); NEUTROPHILS # (AUTO) 3.1 X 10^3 (1.8-7.8); NEUTROPHILS % (AUTO) 52 % (42-75); PLATELET COUNT 205 10^3/uL (130-400); WHITE BLOOD COUNT 6.1 10^3/uL (4.3-11.0)
--- NOTE | 2020-03-07 21:00 | NUR ---
SPOUSE UPDATED BY ELINOR AQUINO
--- NOTE | 2020-03-07 21:15 | NUR ---
TO ROOM TO CHECK ON PATIENT, IV STILL INFUSING, PATIENT RESTING QUIETLY, VERBALIZES PAIN HAS IMPROVED. BLANKET PROVIDED FOR PATIENT, CALL LIGHT IN REACH, MONITORING MAINTAINED.
[2020-03-07 21:24] LABS: ALBUMIN 3.9 GM/DL (3.2-4.5); POTASSIUM 4.2 MMOL/L (3.6-5.0)
[2020-03-07 21:25] LABS: CALCIUM 8.9 MG/DL (8.5-10.1)
[2020-03-07 21:27] LABS: TOTAL PROTEIN 6.9 GM/DL (6.4-8.2)
[2020-03-07 21:28] LABS: BILIRUBIN,TOTAL 0.2 MG/DL (0.1-1.0)
[2020-03-07 21:30] LABS: CREATININE SERUM 0.93 MG/DL (0.60-1.30)
--- NOTE | 2020-03-07 21:31 | ED Abdominal Pain ---
General Chief Complaint: Back Problems Stated Complaint: BACK PAIN;ABDOMINAL PAIN Nursing Triage Note: PATIENT STATES SHE HAS HAD MULTIPLE BACK SURGERIES AND THE LAST FEW DAYS HAS HAD INCREASING PAIN NOT ALIEVED BY HER REGULAR PAIN MEDICATION. VERBALIZES URINARY FREQUENCY, DENIES BURNING OR OTHER SYMPTOMS. Sepsis Screen: No Definite Risk Source of Information: Patient Exam Limitations: No Limitations History of Present Illness Date Seen by Provider: Mar 07, 2020 Time Seen by Provider: 19:58 Initial Comments This 69-year-old woman presents to the emergency room with 3 days of abdominal symptoms. She had fairly severe diarrhea at the onset and now has escalating lumbar back pain that radiates around to the epigastric region. She is most tender in the epigastrium and right upper quadrant. She had prior cholecystectomy. She reports history of pancreatic cyst and pancreatitis for which she has an annual MRI. Her primary care provider is Dr. Newton. She sees a adult education instructor at [facility]. She believes his name is Dr. Jacob Estrella. She has had some mild nausea but denies vomiting. She denies any alcohol or drug use. She has atrial fibrillation and is on Xarelto. Allergies and Home Medications Allergies Coded Allergies: adhesive tape (Verified Allergy, Unknown, 04/24/19) metoclopramide (Verified Allergy, Unknown, 04/24/19) ondansetron (Unverified Adverse Reaction, Unknown, nausea and vomiting, 04/24/19) Uncoded Allergies: PAIN MEDICATION (Adverse Reaction, Unknown, SIDE EFFECTS FROM PAIN MEDICATIONS, 04/18/14) Home Medications Alprazolam 0.25 Mg Tablet, 0.25 MG PO BID PRN for ANXIETY, (Reported) Cetirizine HCl 10 Mg Tablet, 10 MG PO HS, (Reported) Diltiazem HCl 180 Mg Tab.er.24h, 180 MG PO DAILY, (Reported) Famotidine 20 Mg Tablet, 20 MG PO BID Prescribed by: MAXWELL FERNANDEZ on 03/07/209 Gabapentin 300 Mg Capsule, 600 MG PO HS, (Reported) TAKES 2 (300MG) CAPSULES Metoprolol Succinate 25 Mg Tab.er.24h, 12.5 MG PO 1700, (Reported) TAKES WITH DINNER Naloxone HCl 4 Mg [place], NS UD PRN for OPIOID SIDE EFFECTS, (Reported) Omeprazole 20 Mg Tablet.dr, 20 MG PO DAILY PRN for HEARTBURN, (Reported) Pantoprazole Sodium 40 Mg Tablet.dr, 40 MG PO DAILY Prescribed by: MAXWELL FERNANDEZ on 03/07/20 0719 Pramipexole Di-HCl 1 Mg Tablet, 1 MG PO 1900, (Reported) Rivaroxaban 20 Mg Tablet, 20 MG PO 1700, (Reported) TAKES WITH DINNER Sennosides/Docusate Sodium 1 Each Tablet, 1 TAB PO HS, (Reported) Tapentadol HCl 100 Mg Tablet, 100 MG PO TID, (Reported) Temazepam 30 Mg Capsule, 30 MG PO HS, (Reported) Patient Home Medication List Home Medication List Reviewed: Yes Review of Systems Review of Systems Constitutional: no symptoms reported EENTM: No Symptoms Reported Respiratory: No Symptoms Reported Cardiovascular: No Symptoms Reported Gastrointestinal: See HPI Genitourinary: No Symptoms Reported Musculoskeletal: see HPI Skin: no symptoms reported Psychiatric/Neurological: No Symptoms Reported Endocrine: No Symptoms Reported Hematologic/Lymphatic: No Symptoms Reported Past Gnnidqj-Xvtmxg-Dwaciu Hx Past Med/Social Hx: Reviewed Nursing Past Med/Soc Hx Patient Social History Alcohol Use: Denies Use Recreational Drug Use: No 2nd Hand Smoke Exposure: No Recent Foreign Travel: No Contact w/Someone Who Travel: No Recent Infectious Disease Expo: No Recent Hopitalizations: No Physical Abuse: No Sexual Abuse: No Mistreated: No Fear: No Immunizations Up To Date Date of Pneumonia Vaccine: Mar 06, 2016 Date of Influenza Vaccine: Mar 24, 2019 Seasonal Allergies Seasonal Allergies: No Past Medical History Surgeries: Yes (LUMBAR SURGERY, LEFT KNEE SURGERY x 3, NECK SURGERY X5) Cardiac (loop recorder), Gallbladder, Orthopedic Respiratory: No Cardiac: Yes Atrial Fibrillation, Hypertension, Palpitations Neurological: Yes (seizures as child) Neuropathy, Seizure Disorder ([place]) 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 Genitourinary: No Gastrointestinal: Yes Pancreatitis (with pancreatic cyst) Musculoskeletal: Yes (MULTIPLE BACK SURGERIES) Arthritis, Fibromyalgia Endocrine: No HEENT: No Cancer: No Psychosocial: Yes Anxiety Integumentary: No Blood Disorders: No Family Medical History Reviewed Nursing Family Hx Cardiovascular disease 19 FATHER Colon cancer 19 MOTHER Diabetes mellitus G8 BROTHER FH: prostate cancer 19 FATHER Hypertension 19 MOTHER Physical Exam Vital Signs Vital Signs - First Documented 03/07/20 19:26 Temp 36.5 Pulse 76 Resp 20 B/P (MAP) 129/76 (93) Pulse Ox 96 Capillary Refill : Less Than 3 Seconds Height/Weight/BMI Height: 5'3.00" Weight: 152lbs. 1.6oz. 68.250283ab; 29.00 BMI Method:Stated General Appearance: WD/WN, mild distress HEENT: PERRL/EOMI, normal ENT inspection, pharynx normal, other (dry mucous membranes) Neck: normal inspection Respiratory: lungs clear, normal breath sounds, no respiratory distress Cardiovascular: regular rate, rhythm, no edema, no murmur Gastrointestinal: normal bowel sounds, soft, tenderness (most prominent in the right upper quadrant and epigastrium) Extremities: normal inspection, no pedal edema Neurologic/Psychiatric: meteorology instructor II-XII nml as tested, no motor/sensory deficits, alert, normal mood/affect, oriented x 3 Skin: normal color, warm/dry Progress/Results/Core Measures Results/Orders Lab Results Laboratory Tests Test 03/07/20 19:26 03/07/20 20:45 Range/Units Urine Color YELLOW Urine Clarity CLEAR Urine pH 5.5 5-9 Urine Specific [place] >=1.030 1.016-1.022 Urine Protein NEGATIVE NEGATIVE Urine Glucose (UA) NEGATIVE NEGATIVE Urine Ketones NEGATIVE NEGATIVE Urine Nitrite NEGATIVE NEGATIVE Urine Bilirubin NEGATIVE NEGATIVE Urine Urobilinogen 0.2 < = 1.0 MG/DL Urine Leukocyte Esterase NEGATIVE NEGATIVE Urine RBC (Auto) NEGATIVE NEGATIVE Urine RBC NONE /HPF Urine WBC RARE /HPF Urine Squamous Epithelial Cells 0-2 /HPF Urine Crystals NONE /LPF Urine Bacteria TRACE /HPF Urine Casts PRESENT /LPF Urine Hyaline Casts RARE /LPF Urine Mucus MODERATE H /LPF Urine Culture Indicated NO White Blood Count 6.1 4.3-11.0 10^3/uL Red Blood Count 4.23 L 4.35-5.85 10^6/uL Hemoglobin 12.3 11.5-16.0 G/DL Hematocrit 38 35-52 % Mean Corpuscular Volume 90 80-99 FL Mean Corpuscular Hemoglobin 29 25-34 PG Mean Corpuscular Hemoglobin Concent 32 32-36 G/DL Red Cell Distribution Width 14.6 H 10.0-14.5 % Platelet Count 205 130-400 10^3/uL Mean Platelet Volume 9.9 7.4-10.4 FL Neutrophils (%) (Auto) 52 42-75 % Lymphocytes (%) (Auto) 37 12-44 % Monocytes (%) (Auto) 10 0-12 % Eosinophils (%) (Auto) 1 0-10 % Basophils (%) (Auto) 0 0-10 % Neutrophils # (Auto) 3.1 1.8-7.8 X 10^3 Lymphocytes # (Auto) 2.3 1.0-4.0 X 10^3 Monocytes # (Auto) 0.6 0.0-1.0 X 10^3 Eosinophils # (Auto) 0.0 0.0-0.3 10^3/uL Basophils # (Auto) 0.0 0.0-0.1 10^3/uL Sodium Level 140 135-145 MMOL/L Potassium Level 4.2 3.6-5.0 MMOL/L Chloride Level 106 98-107 MMOL/L Carbon Dioxide Level 24 21-32 MMOL/L Anion Gap 10 5-14 MMOL/L Blood Urea Nitrogen 17 7-18 MG/DL Creatinine 0.93 0.60-1.30 MG/DL Estimat Glomerular Filtration Rate 60 BUN/Creatinine Ratio 18 Glucose Level 95 70-105 MG/DL Calcium Level 8.9 8.5-10.1 MG/DL Corrected Calcium 9.0 8.5-10.1 MG/DL Magnesium Level 2.0 1.6-2.4 MG/DL Total Bilirubin 0.2 0.1-1.0 MG/DL Aspartate Amino Transf (AST/SGOT) 29 5-34 U/L Alanine Aminotransferase (ALT/SGPT) 21 0-55 U/L Alkaline Phosphatase 99 40-136 U/L C-Reactive Protein High Sensitivity 1.31 H 0.00-0.50 MG/DL Total Protein 6.9 6.4-8.2 GM/DL Albumin 3.9 3.2-4.5 GM/DL Lipase 18 8-78 U/L My Orders Orders - MAXWELL EWING MD Ua Culture If Indicated (03/07/20 19:15) Morphine Injection (Morphine Injection (03/07/20 20:05) Ed Iv/Invasive Line Start (03/07/20 20:05) Lactated Ringers (Lr 1000 Ml Iv Solution (03/07/20 20:05) Cbc With Automated Diff (03/07/20 20:05) Comprehensive Metabolic Panel (03/07/20 20:05) Hs C Reactive Protein (03/07/20 20:05) Lipase (03/07/20 20:05) Magnesium (03/07/20 20:05) Ct Abdomen/Pelvis W (03/07/20 21:34) Iohexol Injection (Omnipaque 350 Mg/Ml 1 (03/07/20 22:30) Received Contrast (Hold Metformin- Contr (03/07/20 22:30) Sodium Chloride Flush (Catheter Flush Sy (03/07/20 22:30) Ns (Ivpb) (Sodium Chloride 0.9% Ivpb Bag (03/07/20 22:30) Morphine Injection (Morphine Injection (03/07/20 22:41) Ondansetron Injection (Zofran Injectio (03/07/20 23:00) Lidocaine 2% Viscous 15 Ml (Xylocaine Vi (03/07/20 23:15) Antacid Suspension (Mylanta Suspension (03/07/20 23:15) Famotidine Injection (Pepcid Injection) (03/07/20 23:03) Medications Given in ED Current Medications Medications Dose Ordered Sig/Jennifer Route Start Time Stop Time Status Last Admin Dose Admin Al Hydrox/Mg Hydrox/Simethicone 30 ml ONCE ONCE PO 03/07/20 23:15 03/07/20 23:16 DC 03/07/20 23:07 30 ML Iohexol 100 ml ONCE ONCE IV 03/07/20 22:30 03/07/20 22:31 DC 03/07/20 22:26 95 ML Lactated Ringer's 1,000 ml @ 0 mls/hr Q0M ONCE IV 03/07/20 20:05 03/07/20 20:07 DC 03/07/20 20:48 1,000 MLS/HR Lidocaine HCl 15 ml ONCE ONCE PO 03/07/20 23:15 03/07/20 23:16 DC 03/07/20 23:07 15 ML Ondansetron HCl 4 mg ONCE ONCE IVP 03/07/20 23:00 03/07/20 23:01 DC 03/07/20 22:58 4 MG Sodium Chloride 10 ml NEEDED PRN IV 03/07/20 22:30 03/07/20 23:45 DC 03/07/20 22:26 10 ML Sodium Chloride 100 ml ONCE ONCE IV 03/07/20 22:30 03/07/20 22:31 DC 03/07/20 22:26 80 ML Vital Signs/I&O 03/07/20 03/07/20 19:26 23:38 Temp 36.5 Pulse 76 102 Resp 20 20 B/P (MAP) 129/76 (93) 148/86 (93) Pulse Ox 96 98 Blood Pressure Mean: 93 Progress Progress Note : Progress Note Patient received 2 doses of morphine to help control her pain. A liter of LR was infused. Labs were reviewed and were unremarkable. CT was obtained to evaluate sources of abdominal pain. CT was unremarkable in regards to the etiology of her pain. Patient was then further treated with Pepcid and a GI cocktail. Zofran was given prophylactically. This actually did improve her pain. Patient was then prescribed Pepcid and Protonix and advised to seek endoscopy in the outpatient setting. On reexamination epigastrium was less tender. Departure Impression Primary Impression: Upper abdominal pain Additional Impressions: Diarrhea Qualified Codes: R19.7 - Diarrhea, unspecified Nausea & vomiting Qualified Codes: R11.2 - Nausea with vomiting, unspecified Disposition: 01 HOME, SELF-CARE Condition: Improved Departure-Patient Inst. Decision time for Depature: 23:27 Referrals: NIA NEWTON MD (PCP/Family) Primary Care Physician Patient Instructions: Gastritis, Severe Abdominal Pain Add. Discharge Instructions: Start with a clear liquid diet and gradually advance your diet with small quantities of clear food as tolerated. Start your antiacid medications tomorrow and continue taking them for at least a month. You may also use Tums in addition to these medications. You may continue taking Nucynta for pain and may add Tylenol (acetaminophen). Follow-up with Dr. Newton in the morning and request referral for endoscopy. Return to the emergency room if you have worsening symptoms or other concerns. Avoid the following: Eating large meals, eating close to bedtime, lying completely flat, caffeine, carbonation, citrus fruits and juices, chocolate, tomato products, spicy foods, fatty or greasy foods, NSAID medications such as ibuprofen or naproxen, mints, alcohol, tobacco, or anything else you know irritates your stomach. All discharge instructions reviewed with patient and/or family. Voiced understanding. Scripts Famotidine (Pepcid) 20 Mg Tablet 20 MG PO BID, #60 TAB Prov: MAXWELL EWING MD 03/07/20 Pantoprazole Sodium (Protonix) 40 Mg Tablet.dr 40 MG PO DAILY, #30 TAB Prov: MAXWELL EWING MD 03/07/20 Copy Copies To 1: NIA NEWTON MD, JOSHUA T MD Mar 07, 2020 21:31
[2020-03-07] MEDS ORDERED: IOHEXOL 350 MG/ML 100 ML (OMNIPAQUE 350) VIAL IV ONE (22:30)
[2020-03-07] MEDS ORDERED: NS 100 ML (IVPB) BAG IV ONE (22:30)
[2020-03-07] MEDS ORDERED: HOLD METFORMIN - RECEIVED CONTRAST 20 ML VIAL IV SCH (22:30)
[2020-03-07] MEDS ORDERED: CATHETER FLUSH 10 ML SYR IV PRN (22:30)
[2020-03-07] MEDS ORDERED: ONDANSETRON 4 MG/2 ML (SDV) Z0FRAN IVP ONE (23:00)
[2020-03-07] MEDS ORDERED: FAMOTIDINE 20MG/2ML IV (PEPCID) IV STA (23:03)
[2020-03-07] MEDS ORDERED: LIDOCAINE 2% VISCOUS 15 ML UDC PO ONE (23:15)
[2020-03-07] MEDS ORDERED: ANTACID SUSP 30 ML UDC (MYLANTA) PO ONE (23:15)
[2020-03-07] MEDS ORDERED: FAMO-119 PO (23:29)
[2020-03-07] MEDS ORDERED: PANT40TA2 PO (23:29)
[2020-03-07 23:38] VITALS: BP 148/86
--- NOTE | 2020-03-08 06:56 | Diagnostic Imaging Report ---
PROCEDURE: CT abdomen and pelvis with contrast. TECHNIQUE: Multiple contiguous axial images were obtained through the abdomen and pelvis after administration of intravenous contrast. Auto Exposure Controls were utilized during the CT exam to meet ALARA standards for radiation dose reduction. INDICATION: Upper abdominal pain, history of pancreatitis and pancreatic cyst. COMPARISON: None FINDINGS: There is dependent atelectasis in the lungs bilaterally. The heart is normal in size. There is no pericardial effusion. The liver demonstrates no focal lesions. Cholecystectomy clips are noted. Prominence of the common bile duct is likely due to postcholecystectomy change. The spleen appears normal. The pancreas demonstrates no peripancreatic edema. There is a focal hypodense lesion at the tail measuring 1.1 cm in size, with no enhancement seen. There is no ductal dilatation or pancreatic calcification. The adrenal glands appear normal. The kidneys appear normal with no hydronephrosis. There is cortical scarring of the left kidney. The bowel loops are nondistended without obstruction. The appendix appears normal. There is moderate stool in the ascending and proximal transverse colon. The appendix is normal. No free fluid or free air is seen. There are postsurgical changes in the spine with diffuse osteopenia. IMPRESSION: 1. No acute abnormality is seen in the abdomen. 2. Small cystic lesion at the pancreatic tail. This could represent an IPMN. There is no ductal dilatation. 3. Moderate stool in the proximal colon. 4. Prominence of the common bile duct is likely due to postcholecystectomy change. Dictated by: Dictated on workstation # [id number]
== END 2020-03-07 23:45 | disposition home or self-care (01) ==
LOC: EDUNIT# 19:12 → ER 19:14
DX: R19.7 Diarrhea, unspecified (principal); R11.2 Nausea with vomiting, unspecified; M54.5 Low back pain; I48.91 Unspecified atrial fibrillation; I10 Essential (primary) hypertension; F41.9 Anxiety disorder, unspecified; M79.7 Fibromyalgia; G40.909 Epilepsy, unspecified, not intractable, without status epilepticus; G62.9 Polyneuropathy, unspecified; Z90.49 Acquired absence of other specified parts of digestive tract; Z98.890 Other specified postprocedural states; Z88.8 Allergy status to other drugs, medicaments and biological substances; Z79.01 Long term (current) use of anticoagulants; Z80.0 Family history of malignant neoplasm of digestive organs; Z82.49 Family history of ischemic heart disease and other diseases of the circulatory system; Z80.42 Family history of malignant neoplasm of prostate
CPT/HCPCS: 36415; 74177; 80053; 81000; 83690; 83735; 85025; 86141

== ENCOUNTER → 2020-03-20 | Outpatient (CLI) | payer MEDICARE, OTHER ==
[~2020-03-20] MED LIST changes: -ALPR0.254 PO; +FAMO-119 PO; +PANT40TA2 PO
== END ==
LOC: CARD 11:00
PROVIDERS: ATTEND Internal Medicine Interventional Cardiology
DX: I48.0 Paroxysmal atrial fibrillation (principal); I48.3 Typical atrial flutter; I10 Essential (primary) hypertension; I49.1 Atrial premature depolarization; I49.5 Sick sinus syndrome; I34.0 Nonrheumatic mitral (valve) insufficiency
CPT/HCPCS: 93306

== ENCOUNTER → 2021-01-23 | Outpatient (CLI) | payer MEDICARE, OTHER ==
[~2021-01-23] MED LIST changes: -OMEP40CA27 PO; +OMEP40CA6 PO
--- NOTE | 2021-01-23 16:29 | Diagnostic Imaging Report ---
INDICATION: Postmenopausal screening COMPARISON: Baseline FINDINGS: AP Spine L1-L4: [BMD (g/cm2): na] [T-Score: na] [Z-Score: na] [BMD Previous: na] [BMD % Change: na] LT Hip Neck: [BMD (g/cm2): 0.773] [T-Score: -1.9] [Z-Score: -0.2] LT Hip Total: [BMD (g/cm2):0.880] [T-Score:-1.0] [Z-Score: 0.5] [BMD Previous: na] [BMD % Change: na] RT Hip Neck: [BMD (g/cm2):0.808] [T-Score:-1.7] [Z-Score:0.1] RT Hip Total: [BMD (g/cm2):0.868] [T-score:-1.1] [Z-Score:0.4] [BMD Previous:na] [BMD % Change:na] *Indicates significant change from prior examination based on 95% confidence level. World Health Organization criteria for BMD interpretation classify patients as Normal (T-score at or above -1.0), Osteopenic (T-score between -1.0 and -2.5) or Osteoporotic (T-score at or below -2.5). LIMITATIONS AND MODIFICATION: None. FRACTURE RISK (FRAX SCORE): The ten year probability of (%): Major Osteoporotic Fracture: [12.0] Hip Fracture: [2.4] IMPRESSION: 1. Osteopenia (Low bone mass). 2. Baseline examination. 3. See below National Osteoporosis Foundation guidelines on when to potentially initiate pharmacologic therapy. Based on the National Osteoporosis Foundation Guidelines, pharmacologic treatment should be initiated in any of the following, unless clinical conditions suggest otherwise: * Any patient with prior fragility fracture of the hip or vertebrae. A spine fracture indicates 5X risk for subsequent spine fracture and 2X risk for subsequent hip fracture. * Osteoporosis (T-score <-2.5). * Postmenopausal women and men age 50 and older with low bone mass/osteopenia (T-score between -1.0 and -2.5) by DXA and 10-year major osteoporotic fracture greater than 20% or a 10-year probability of hip fracture greater than 3%. These fracture risks are supplied above in the FRAX score, if applicable. * Clinician judgement and/or patient preferences may indicate treatment for people with 10-year fracture probabilities above or below these levels. Dictated by: Dictated on workstation # [id number]
== END ==
LOC: RAD 14:00
PROVIDERS: ATTEND Family Medicine
DX: Z13.820 Encounter for screening for osteoporosis (principal); M85.80 Other specified disorders of bone density and structure, unspecified site; Z78.0 Asymptomatic menopausal state
CPT/HCPCS: 77080

== ENCOUNTER → 2022-01-01 | Outpatient (CLI) | payer MEDICARE, OTHER ==
[~2022-01-01] MED LIST changes: +OMEP20TA56 PO; -OMEP20TA7 PO; +SCOP1PAT10 TD; -SCOP1PAT11 TD
--- NOTE | 2022-01-01 11:51 | Diagnostic Imaging Report ---
PROCEDURE: CT sinuses without contrast TECHNIQUE: Multiple contiguous axial images were obtained through the sinuses without the use of intravenous contrast. Coronal and sagittal reformations were then performed. Auto Exposure Controls were utilized during the CT exam to meet ALARA standards for radiation dose reduction. INDICATION: Recurrent sinusitis. FINDINGS: The frontal sinuses clear. Ethmoid air cells and sphenoid sinus are clear. Bilateral maxillary sinuses are clear. No mucosal thickening or air-fluid levels are seen. The mastoids are well aerated. The nasal septum is midline. Ostiomeatal complexes are patent bilaterally. IMPRESSION: No evidence of sinusitis. Dictated by: Dictated on workstation # [id number]
== END ==
LOC: RAD FS 10:40
PROVIDERS: ATTEND Otolaryngology Otolaryngology/Facial Plastic Surgery
DX: J32.9 Chronic sinusitis, unspecified (principal)
CPT/HCPCS: 70486

== ENCOUNTER 2022-12-25 00:13 | Emergency (ER) | payer MEDICARE, OTHER ==
[~2022-12-25] VITALS: Ht 157.4 cm; Wt 70.0 kg
[2022-12-25 00:18] VITALS: BP 145/92
--- NOTE | 2022-12-25 00:25 | ED GI ---
General Chief Complaint: Abdominal/GI Problems Stated Complaint: VOMITING|ABD PAIN History of Present Illness Date Seen by Provider: Dec 25, 2022 Time Seen by Provider: 00:25 Initial Comments 72-year-old female with PMH of A-fib/cholecystectomy/arthritis with hip and knee replacements/back surgery/ restless leg syndrome/multiple medication allergies, is here with complaints of nausea, vomiting, diarrhea, epigastric and left upper quadrant abdominal pain since last night. Pt has had about 5 episodes of each. Pt's has similar symptoms but not with the same intensity. They suspect the 'stomach bug'. Pt states her abdominal pain is 8/10 and is constant. Denies fever and chills, dysuria, chest pain, palpitations, SOB, cough, URI symptoms. Allergies and Home Medications Allergies Coded Allergies: adhesive tape (Verified Allergy, Unknown, 04/24/19) metoclopramide (Verified Allergy, Unknown, 04/24/19) ondansetron (Unverified Adverse Reaction, Unknown, nausea and vomiting, 04/24/19) Uncoded Allergies: PAIN MEDICATION (Adverse Reaction, Unknown, SIDE EFFECTS FROM PAIN MEDICATIONS, 04/18/14) Patient Home Medication List Home Medication List Reviewed: Yes ALPRAZolam (Xanax Tablet) 0.25 Mg Tablet, 0.25 MG PO BID PRN for ANXIETY, (Repo rted) Entered as Reported by: ROMAN MOONEY on 05/28/18 09 Cetirizine HCl (Zyrtec) 10 Mg Tablet, 10 MG PO HS, (Reported) Entered as Reported by: ROMAN MOONEY on 05/28/18938 Diltiazem HCl (Diltiazem ER) 180 Mg Tab.er.24h, 180 MG PO DAILY, (Reported) Entered as Reported by: ROMAN MOONEY on 05/28/18 09 Famotidine (Pepcid) 20 Mg Tablet, 20 MG PO BID Prescribed by: MAXWELL FERNANDEZ on 03/07/202328 Gabapentin (Gabapentin) 300 Mg Capsule, 600 MG PO HS, (Reported) Entered as Reported by: ROMAN MOONEY on 05/28/18 09 Metoprolol Succinate (Metoprolol Succinate) 25 Mg Tab.er.24h, 12.5 MG PO 1700, (Reported) Entered as Reported by: ZOFIA ROJAS on 06/07/19 0754 Naloxone HCl (Narcan) 4 Mg [place], [place] UD PRN for OPIOID SIDE EFFECTS, (Reported) Entered as Reported by: ROMAN MOONEY on 05/28/18 0942 Omeprazole (Omeprazole) 20 Mg Tablet.dr, 20 MG PO DAILY PRN for HEARTBURN, (Reported) Entered as Reported by: ROMAN MOONEY on 09/24/18 0834 Pantoprazole Sodium (Protonix) 40 Mg Tablet.dr, 40 MG PO DAILY Prescribed by: MAXWELL FERNANDEZ on 03/07/20 2329 Pramipexole Di-HCl (Pramipexole Dihydrochloride) 1 Mg Tablet, 1 MG PO 1900, (Reported) Entered as Reported by: ROMAN MOONEY on 05/28/18 0939 Rivaroxaban (Xarelto) 20 Mg Tablet, 20 MG PO 1700, (Reported) Entered as Reported by: ZOFIA ROJAS on 06/07/19 0754 Sennosides/Docusate Sodium (Senna S Tablet) 1 Each Tablet, 1 TAB PO HS, (Reporte d) Entered as Reported by: ROMAN MOONEY on 09/24/18 0834 Tapentadol HCl (Nucynta) 100 Mg Tablet, 100 MG PO TID, (Reported) Entered as Reported by: ROMAN MOONEY on 05/28/18 0939 Temazepam (Temazepam) 30 Mg Capsule, 30 MG PO HS, (Reported) Entered as Reported by: ROMAN MOONEY on 05/28/18 0939 Review of Systems Review of Systems Constitutional: no symptoms reported EENTM: No Symptoms Reported Respiratory: No Symptoms Reported Cardiovascular: No Symptoms Reported Gastrointestinal: Abdominal Pain, Diarrhea, Nausea, Vomiting Genitourinary: No Symptoms Reported Musculoskeletal: no symptoms reported Skin: no symptoms reported Psychiatric/Neurological: No Symptoms Reported Endocrine: No Symptoms Reported Hematologic/Lymphatic: No Symptoms Reported Past Cptbrvh-Vynojj-Lpfmxj Hx Seasonal Allergies Seasonal Allergies: No Past Medical History Surgeries: Yes (LUMBAR SURGERY, LEFT KNEE SURGERY x 3, NECK SURGERY X5) Cardiac, Gallbladder, Orthopedic Respiratory: No Cardiac: Yes Atrial Fibrillation, Hypertension, Palpitations Neurological: Yes (seizures as child) Neuropathy, Seizure Disorder [employer] History: Hysterectomy Genitourinary: No Gastrointestinal: Yes Pancreatitis Musculoskeletal: Yes (MULTIPLE BACK SURGERIES) Arthritis, Fibromyalgia Endocrine: No HEENT: No Cancer: No Psychosocial: Yes Anxiety Integumentary: No Blood Disorders: No Family Medical History Cardiovascular disease 19 FATHER Colon cancer 19 MOTHER Diabetes mellitus G8 BROTHER FH: prostate cancer 19 FATHER Hypertension 19 MOTHER Physical Exam Vital Signs Vital Signs - First Documented 12/25/22 00:18 Temp 36.4 Pulse 92 Resp 18 B/P (MAP) 145/92 (109) Pulse Ox 96 O2 Delivery Room Air Capillary Refill : Height/Weight/BMI Height: 5'3.00" Weight: 152lbs. 1.6oz. 68.047955ur; 29.00 BMI Method:Stated General Appearance: WD/WN, no apparent distress HEENT: PERRL/EOMI, normal ENT inspection Neck: non-tender, full range of motion, supple, normal inspection Respiratory: chest non-tender, lungs clear, normal breath sounds, no respiratory distress Cardiovascular: regular rate, rhythm, no edema Gastrointestinal: normal bowel sounds, soft, no organomegaly, tenderness (epigastrc region, LUQ, and left CVA tenderness.) Extremities: normal range of motion Back: normal inspection, CVA tenderness (L) Neurologic/Psychiatric: alert, normal mood/affect, oriented x 3 Skin: normal color Lymphatic: no adenopathy Progress/Results/Core Measures Results/Orders Lab Results Laboratory Tests Test 12/25/22 00:27 12/25/22 00:42 12/25/22 02:17 Range/Units Influenza Type A (RT-PCR) Not Detected Not Detecte Influenza Type B (RT-PCR) Not Detected Not Detecte SARS-CoV-2 RNA (RT-PCR) Not Detected Not Detecte White Blood Count 7.9 4.3-11.0 10^3/uL Red Blood Count 5.20 H 3.80-5.11 10^6/uL Hemoglobin 15.2 11.5-16.0 g/dL Hematocrit 46 35-52 % Mean Corpuscular Volume 89 80-99 fL Mean Corpuscular Hemoglobin 29 25-34 pg Mean Corpuscular Hemoglobin Concent 33 32-36 g/dL Red Cell Distribution Width 15.0 H 10.0-14.5 % Platelet Count 259 130-400 10^3/uL Mean Platelet Volume 9.8 9.0-12.2 fL Immature Granulocyte % (Auto) 0 % Neutrophils (%) (Auto) 83 H 42-75 % Lymphocytes (%) (Auto) 13 12-44 % Monocytes (%) (Auto) 2 0-12 % Eosinophils (%) (Auto) 0 0-10 % Basophils (%) (Auto) 0 0-10 % Neutrophils # (Auto) 6.6 1.8-7.8 10^3/uL Lymphocytes # (Auto) 1.1 1.0-4.0 10^3/uL Monocytes # (Auto) 0.2 0.0-1.0 10^3/uL Eosinophils # (Auto) 0.0 0.0-0.3 10^3/uL Basophils # (Auto) 0.0 0.0-0.1 10^3/uL Immature Granulocyte # (Auto) 0.0 0.0-0.1 10^3/uL Sodium Level 138 135-145 MMOL/L Potassium Level 4.5 3.6-5.0 MMOL/L Chloride Level 102 98-107 MMOL/L Carbon Dioxide Level 22 21-32 MMOL/L Anion Gap 14 5-14 MMOL/L Blood Urea Nitrogen 16 7-18 MG/DL Creatinine 1.02 0.60-1.30 MG/DL Estimat Glomerular Filtration Rate 58 BUN/Creatinine Ratio 16 Glucose Level 152 H 70-105 MG/DL Calcium Level 10.6 H 8.5-10.1 MG/DL Corrected Calcium 10.4 H 8.5-10.1 MG/DL Magnesium Level 2.1 1.6-2.4 MG/DL Total Bilirubin 0.6 0.1-1.0 MG/DL Aspartate Amino Transf (AST/SGOT) 23 5-34 U/L Alanine Aminotransferase (ALT/SGPT) 16 0-55 U/L Alkaline Phosphatase 135 40-136 U/L Troponin I < 0.30 <0.30 NG/ML Total Protein 7.8 6.4-8.2 GM/DL Albumin 4.3 3.2-4.5 GM/DL Lipase 29 8-78 U/L Urine Color YELLOW Urine Clarity CLEAR Urine pH 6.0 5-9 Urine Specific [place] <=1.005 1.016-1.022 Urine Protein NEGATIVE NEGATIVE Urine Glucose (UA) NEGATIVE NEGATIVE Urine Ketones TRACE H NEGATIVE Urine Nitrite NEGATIVE NEGATIVE Urine Bilirubin NEGATIVE NEGATIVE Urine Urobilinogen 0.2 < = 1.0 MG/DL Urine Leukocyte Esterase NEGATIVE NEGATIVE Urine RBC (Auto) TRACE-I H NEGATIVE Urine RBC RARE /HPF Urine WBC RARE /HPF Urine Squamous Epithelial Cells RARE /HPF Urine Crystals NONE /LPF Urine Bacteria NEGATIVE /HPF Urine Casts NONE /LPF Urine Mucus MODERATE H /LPF Urine Culture Indicated NO My Orders Orders - ECTOR GUERRIER MD Covid 19 Inhouse Test (12/25/22 00:26) Influenza A And B By Pcr (12/25/22 00:26) Ua Culture If Indicated (12/25/22 00:26) Cbc With Automated Diff (12/25/22 00:26) Comprehensive Metabolic Panel (12/25/22:26) Lactic Acid Analyzer (12/25/22:26) Lipase (12/25/22:26) Magnesium (12/25/22:26) Troponin I Fs (12/25/22 00:26) Ct Abdomen/Pelvis W (12/25/22 00:36) Famotidine Injection (Pepcid Injection) (12/25/22 00:36) Prochlorperazine Injection (Compazine In (12/25/22 00:45) Ns Iv 1000 Ml (Sodium Chloride 0.9%) (12/25/22 01:00) Ed Iv/Invasive Line Start (12/25/22 01:02) Promethazine Injection (Phenergan Injec (12/25/22 01:14) Iohexol Injection (Omnipaque 350 Mg/Ml 1 (12/25/22 01:15) Received Contrast (Hold Metformin- Contr (12/25/22 01:15) Sodium Chloride Flush (Catheter Flush Sy (12/25/22 01:15) Ns (Ivpb) (Sodium Chloride 0.9% Ivpb Bag (12/25/22 01:15) Promethazine Injection (Phenergan Injec (12/25/22 01:17) Medications Given in ED Current Medications Medications Dose Ordered Sig/Jennifer Route Start Time Stop Time Status Last Admin Dose Admin Iohexol 80 ml ONCE ONCE IV 12/25/22 01:15 12/25/22 01:16 DC 12/25/22 01:57 80 ML Prochlorperazine Edisylate 10 mg ONCE ONCE IV 12/25/22 00:45 12/25/22 00:46 DC 12/25/22 00:57 10 MG Sodium Chloride 10 ml NEEDED PRN IV 12/25/22 01:15 12/25/22 02:37 DC 12/25/22 01:57 10 ML Sodium Chloride 100 ml ONCE ONCE IV 12/25/22 01:15 12/25/22 01:16 DC 12/25/22 01:57 100 ML Sodium Chloride 1,000 ml @ 100 mls/hr Q10H ONCE IV 12/25/22 01:00 12/25/22 02:37 DC 12/25/22 00:57 100 MLS/HR Vital Signs/I&O 12/25/22 00:18 Temp 36.4 Pulse 92 Resp 18 B/P (MAP) 145/92 (109) Pulse Ox 96 O2 Delivery Room Air Progress Progress Note : Progress Note 1. ABDOMINAL PAIN: - CT ABD: no acute findings. Pt left AMA before CT scan results came back. - UA: negative - CBC/CMP: unremarkable - Lipase negative - Compazine iv/ Pepcid 20mg iv - NS IVF bolus - Pt is allergic to all pain meds and so brought pt's home medications and is giving it to her here since her nausea has now been controlled. - Pt wants to go home and does not want to wait for CT scan results. Risks and benefits have been explained to pt and her but pt is restless and wants to go home. UA results and CT results came back after pt left AMA. Negative work -up. Likely viral enterogastritis. Departure Impression Primary Impression: Abdominal pain Qualified Codes: R10.12 - Left upper quadrant pain Disposition: 07 AGAINST MEDICAL ADVICE Condition: Against Medical Advice Departure-Patient Inst. Referrals: NIA NEWTON MD (PCP/Family) Primary Care Physician ECTOR GUERRIER MD Dec 25, 2022 00:25
[2022-12-25] MEDS ORDERED: FAMOTIDINE 20MG/2ML IV (PEPCID) IV STA (00:36)
[2022-12-25] MEDS ORDERED: PROCHLORPERAZINE 10 MG/2ML INJ (COMPAZINE) IV ONE (00:45)
[2022-12-25 00:49] LABS: BASOPHILS % (AUTO) 0 % (0-10); EOSINOPHILS % (AUTO) 0 % (0-10); HEMATOCRIT 46 % (35-52); HEMOGLOBIN 15.2 g/dL (11.5-16.0); LYMPHOCYTES # (AUTO) 1.1 10^3/uL (1.0-4.0); LYMPHOCYTES % (AUTO) 13 % (12-44); MEAN CORPUSCULAR HEMOGLOBIN 29 pg (25-34); MEAN CORPUSCULAR HGB CONC 33 g/dL (32-36); MEAN CORPUSCULAR VOLUME 89 fL (80-99); MEAN PLATELET VOLUME 9.8 fL (9.0-12.2); MONOCYTES # (AUTO) 0.2 10^3/uL (0.0-1.0); MONOCYTES % (AUTO) 2 % (0-12); NEUTROPHILS # (AUTO) 6.6 10^3/uL (1.8-7.8); NEUTROPHILS % (AUTO) 83 % (42-75); PLATELET COUNT 259 10^3/uL (130-400); WHITE BLOOD COUNT 7.9 10^3/uL (4.3-11.0)
[2022-12-25] MEDS ORDERED: NS IV 1000 ML 1,000 ML IV ONE (01:00)
[2022-12-25] MEDS ORDERED: PROMETHAZINE INJ 25 MG/ML (PHENERGAN) AMP IVP STA (01:14)
[2022-12-25 01:15] LABS: ALANINE AMINOTRANSFERASE 16 U/L (0-55); ALKALINE PHOSPHATASE 135 U/L (40-136); BILIRUBIN,TOTAL 0.6 MG/DL (0.1-1.0); BUN/CREATININE RATIO 16; CALCIUM 10.6 MG/DL (8.5-10.1); CARBON DIOXIDE 22 MMOL/L (21-32); CHLORIDE 102 MMOL/L (98-107); CREATININE SERUM 1.02 MG/DL (0.60-1.30); GFR ESTIMATED 58; GLUCOSE 152 MG/DL (70-105); MAGNESIUM 2.1 MG/DL (1.6-2.4); POTASSIUM 4.5 MMOL/L (3.6-5.0); SODIUM 138 MMOL/L (135-145); TOTAL PROTEIN 7.8 GM/DL (6.4-8.2)
[2022-12-25] MEDS ORDERED: NS 100 ML (IVPB) BAG IV ONE (01:15)
[2022-12-25] MEDS ORDERED: HOLD METFORMIN - RECEIVED CONTRAST 20 ML VIAL IV SCH (01:15)
[2022-12-25] MEDS ORDERED: IOHEXOL 350 MG/ML 100 ML (OMNIPAQUE 350) VIAL IV ONE (01:15)
[2022-12-25] MEDS ORDERED: CATHETER FLUSH 10 ML SYR IV PRN (01:15)
[2022-12-25 01:16] LABS: ALBUMIN 4.3 GM/DL (3.2-4.5); LIPASE 29 U/L (8-78)
[2022-12-25] MEDS ORDERED: PROMETHAZINE INJ 25 MG/ML (PHENERGAN) AMP ONE (01:17)
[2022-12-25 02:28] LABS: BILIRUBIN,URINE NEGATIVE (NEGATIVE); CLARITY,URINE CLEAR; COLOR,URINE YELLOW; GLUCOSE, URINE (UA) NEGATIVE (NEGATIVE); KETONES,URINE TRACE (NEGATIVE); LEUKOCYTE ESTERASE ,URINE NEGATIVE (NEGATIVE); NITRITE,URINE NEGATIVE (NEGATIVE); PROTEIN,URINE NEGATIVE (NEGATIVE)
[2022-12-25 02:33] LABS: RBC,URINE RARE /HPF
[2022-12-25 02:34] LABS: BACTERIA,URINE NEGATIVE /HPF; SQUAMOUS EPITHELIAL CELL,UR RARE /HPF; WBC,URINE RARE /HPF
--- NOTE | 2022-12-25 07:39 | Diagnostic Imaging Report ---
PROCEDURE: CT abdomen and pelvis with contrast. TECHNIQUE: Multiple contiguous axial images were obtained through the abdomen and pelvis after administration of intravenous contrast. Auto Exposure Controls were utilized during the CT exam to meet ALARA standards for radiation dose reduction. All CT scans use one or more of the following dose optimizing techniques: automated exposure control, MA and/or KvP adjustment based on patient size and exam type or iterative reconstruction. INDICATION: Epigastric and left upper quadrant as well as flank pain. Compared with abdominal pelvic CT 03/07/2020. FINDINGS: The lung bases clear. There is a substantial degree of motion and respiratory artifact at this exam limiting detail, overall no acute abnormality identified. No convincing evidence of acute inflammation, mass, fluid collection or obstructive phenomena. There were no findings of appendicitis or diverticulitis. There is no hydroureteronephrosis. There is a nonaneurysmal aorta. Liver, spleen, adrenals and pancreas grossly unremarkable. No ascites, abscess, hematoma or acute fluid collection. There are degenerative and postsurgical changes to the spine chronic. There is artifact generated bilateral hip replacements. No acute pelvic pathology identified. IMPRESSION: Limited by surgical artifact as well as respiratory motion, no obstructive features, inflammatory process, ascites, hemorrhage, perforation or acute abnormalities identified. Dictated by: Dictated on workstation # [id number]
== END 2022-12-25 02:31 | disposition left against medical advice (07) ==
LOC: EDUNIT# 00:13 → ER FS 00:15
DX: R10.12 Left upper quadrant pain (principal); R10.13 Epigastric pain; Z87.19 Personal history of other diseases of the digestive system; Z90.49 Acquired absence of other specified parts of digestive tract; Z20.822 Contact with and (suspected) exposure to COVID-19
CPT/HCPCS: 36415; 74177; 80053; 81000; 83690; 83735; 84484; 85025; 87636